=== PATIENT | female | born 1945 | race Caucasian/White ===

== ENCOUNTER 2017-02-03 05:03 | Day surgery (SDC) | payer OTHER, BC ==
[2017-01-28 17:05] VITALS: BMI 36.6
[2017-02-03] MEDS ORDERED: MIDAZOLAM HCL 2 MG/2 ML SINGLE DOSE VIAL ONE (09:50)
[2017-02-03] MEDS ORDERED: PROPOFOL 20 ML ONE (09:50)
[2017-02-03] MEDS ORDERED: DEXAMETHASONE SOD PHOSPHATE 4 MG/1 ML VIAL ONE (10:22)
[2017-02-03] MEDS ORDERED: METRONIDAZOLE 500 MG PREMIXED 100 ML IVPB ONE (10:26)
[2017-02-03] MEDS ORDERED: METRONIDAZOLE 500 MG PREMIXED 500 MG/100 ML MG IVPB ONE (10:27)
[2017-02-03] MEDS ORDERED: KETOROLAC TROMETHAMINE 30 MG/1 ML VIAL ONE (10:37)
[2017-02-03] MEDS ORDERED: ONDANSETRON 4 MG/2 ML VIAL IVPUSH PRN (11:07)
[2017-02-03] MEDS ORDERED: oxyCODONE HCL 5 MG TABLET PO PRN (11:07)
[2017-02-03] MEDS ORDERED: PROMETHAZINE HCL 25 MG/1 ML VIAL IVPUSH PRN (11:07)
[2017-02-03] MEDS ORDERED: IBUPROFEN 800 MG/8 ML IJ IVPB PRN (11:13)
[2017-02-03] MEDS ORDERED: IBUPROFEN 600 MG TABLET (FP) PO PRN (11:13)
[2017-02-03] MEDS ORDERED: LACTATED RINGERS SOLUTION 1,000 ML IV SCH (11:15)
[2017-02-03] MEDS ORDERED: ELECTROLYTE-148 SOLN 1,000 ML IV SCH (11:15)
--- NOTE | 2017-02-03 11:18 | HP ---
History & Physical Update - History History: No Change - Physical Physical: No Change - Assessment Assessment: No Change - Plan Plan: No Change (Consent signed and witnessed)
--- NOTE | 2017-02-03 11:19 | OP ---
Operative Note - Note: Operative Date: 02/03/17 Pre-Operative Diagnosis: 71yo P0 with thick Endometrium on Sonogram Operation: Hysteroscopy, Polypectomy, D&C Findings: 1. Endometrial polyp 2. Endocervical polyp 3. Submucosal fibroids x 2, 1x1cm, Grade 2 Post-Operative Diagnosis: Same as Pre-op (Endometrial polyp, Endocervical polyp , Submucosal fibroids x 2) Surgeon: Mita Whitaker Anesthesiologist/VISUAL MERCHANDISING DIRECTOR: Ulysses Alonso Anesthesia: General Specimens Removed: 1. Endometrial polyp. 2. Endocervical polyp. 3. Endometrial curettings Estimated Blood Loss (mls): 10 Drains & Tubes with Location: Fluid defficit - 100cc Drains, Volume Out (mls): 200 Fluid Volume Replaced (mls): 400 Operative Report Dictated: Yes
[2017-02-03 11:38] VITALS: TEMP 98.2
[2017-02-03 13:12] VITALS: BP 109/72; PULSE 88
[2017-02-03] MEDS ORDERED: ONDANSETRON 4 MG/2 ML VIAL IVPB PRN (17:00)
--- NOTE | 2017-02-04 13:16 | PATH ---
Surgical Pathology Report Patient Name: JORGE ALBERTO LAWRENCE [facility]. Rec. #: [id number] /Age/Gender: 1945 (Age: 71) / F Account: [id number] Location: [facility] Taken: 02/03/2017 Received: 02/03/2017 Reported: 02/04/2017 Physicians: Mita Whitaker M.D. Specimen(s) Received A: UTERINE POLYP B: CERVICAL POLYP C: ENDOMETRIAL CURETTINGS Clinical History Thickened endometrium Endometrial and endocervical polyp Final Diagnosis A. UTERINE POLYP, POLYPECTOMY: ENDOMETRIAL POLYP. B. CERVICAL POLYP, POLYPECTOMY: CONSISTENT WITH LOWER UTERINE SEGMENT POLYP. C. ENDOMETRIUM, CURETTAGE: FRAGMENTS OF ENDOMETRIAL POLYP. FRAGMENTS OF BENIGN ENDOCERVICAL TISSUE. FRAGMENTS OF BENIGN SQUAMOUS EPITHELIUM. Electronically Signed Oscar Bañuelos M.D. Gross Description A. Received in formalin labeled "uterine polyp" is a 1.8 x 0.6 x 0.3 cm pink-griffin, polypoid portion of soft tissue. The specimen is submitted in toto in one cassette. B. Received in formalin labeled "cervical polyp" are 4 pink-griffin soft tissue fragments ranging from 0.4-0.8 cm in greatest dimension. The specimens are submitted in toto in one cassette. C. Received in formalin labeled "endometrial curettage" is a 0.8 x 0.7 x 0.1 cm aggregate of griffin-pink soft tissue fragments. The formalin is filtered and the specimen is entirely submitted in one cassette. /02/03/201702/03/2017
--- NOTE | 2017-02-04 22:11 | OP ---
DATE OF OPERATION: 02/03/2017 PREOPERATIVE DIAGNOSIS: A 71-year-old para 0 with thick endometrium on a sonogram. POSTOPERATIVE DIAGNOSES: A 71-year-old para 0 with thick endometrium on a sonogram and endometrial polyp, endocervical polyp, submucosal fibroids x2. PROCEDURE: Hysteroscopy, polypectomy, dilation, and curettage. FINDINGS: 1. Endometrial polyp. 2. Endocervical polyp. 3. Submucosal fibroids x2, approximately 1 x 1 cm each, grade 2. SURGEON: Mita Whitaker MD ANESTHESIOLOGIST: Bernardo Alonso MD ANESTHESIA: General. SPECIMENS REMOVED: 1. Endometrial polyp. 2. Endocervical polyp. 3. Endometrial curettings. DESCRIPTION OF THE OPERATIVE PROCEDURE: After assuring informed consent, patient was brought to the operating room, where she was placed in dorsal lithotomy position. Perineum was prepped and draped in sterile fashion. After hysteroscope ACMI was set up and fully functional, bladder was emptied. The Silver speculum was introduced into the vagina and cervix articulated with single-toothed tenaculum and gradually dilated with [id number] Preciado dilators up to the size 17. ACMI hysteroscope, 5 mm, was introduced into the cervix and uterine contents were visualized and several endometrial polyps grouped together at the left cornua as well as endocervical polyp were noted. The bilateral ostia were visualized as well. The sharp 0 size serrated curette as well as polyp forceps were utilized to remove polyps separately, endocervical and endometrial, and sharp curettage subsequently was performed. All specimens were sent for pathology. The hysteroscope was reintroduced into the uterus and uterus was found to be empty, but fundal surface and low uterine segment were found to have 2 small 1 x 1 grade 2 submucosa fibroids. Excellent hemostasis was noted and uterus was found to be intact at the end of the procedure. All instruments were removed from the vagina. Excellent hemostasis was noted. FLUID DEFICIT: 100 mL at the end of the case. ESTIMATED BLOOD LOSS: 10 mL. URINE DRAINED: 200 mL. INTRAVENOUS FLUIDS: Patient received 400 mL of fluids. The patient tolerated the procedure well and was brought back to the recovery room in stable condition. Fany [id number]
== END 2017-02-03 14:00 | disposition home or self-care (01) ==
LOC: JASU-SURG 05:03
PROVIDERS: ATTEND Obstetrics & Gynecology
PROC: 0UDB8ZX Extraction of Endometrium, Via Natural or Artificial Opening Endoscopic, Diagnostic (ICD-10-PCS; 2017-02-03)
PROC: 0UB98ZX Excision of Uterus, Via Natural or Artificial Opening Endoscopic, Diagnostic (ICD-10-PCS; principal; 2017-02-03 09:00)
PROC: 0UBC8ZX Excision of Cervix, Via Natural or Artificial Opening Endoscopic, Diagnostic (ICD-10-PCS; 2017-02-03 09:00)
DX: N84.0 Polyp of corpus uteri (principal); D25.0 Submucous leiomyoma of uterus
CPT/HCPCS: 88305-TC; 94760

== ENCOUNTER → 2018-10-29 | Day surgery (SDC) | payer OTHER, BC ==
--- NOTE | 2018-11-01 20:43 | OP ---
DATE OF OPERATION: 10/29/2018 PREOPERATIVE DIAGNOSIS: Right axillary adenopathy, suspicious, right breast masses at 6 . PROCEDURE: Right ultrasound-guided core biopsies of axillary node and breast masses with clip placement. ANESTHESIA: Local. ATTENDING SURGEON: Dorothy Kasper MD ESTIMATED BLOOD LOSS: Minimal. COMPLICATIONS: None. DESCRIPTION OF PROCEDURE: The patient was made aware of the risks and benefits of the procedure and consented. She was placed in the supine position. The axilla was then approached. Under sterile conditions with 1% lidocaine for local anesthesia, a small ashley was made in the skin. Using a 13-gauge suction biopsy device under ultrasound guidance, multiple cores were obtained and submitted to Pathology. Likewise, under ultrasound guidance, a open coil clip was placed into the biopsy region well tolerated by patient. Steri-Strips and a sterile bandage was applied. Next, the left breast masses were approached. Next was the mass at 6 o'clock 1-2 cm from the nipple. Under sterile conditions with 1% lidocaine for local anesthesia, a small ashley was made in the skin. Using a 13-gauge suction biopsy device via an inferolateral approach under ultrasound guidance, multiple cores were obtained and submitted to Pathology. Likewise, under ultrasound guidance, a U-shaped clip was placed into the biopsy region. The mass at 6 o'clock 4 cm from the nipple was then approached using the same prior incision. Under ultrasound guidance, additional local anesthesia was administered. Using a separate 13-gauge suction biopsy device via inferolateral approach, multiple cores were obtained under ultrasound guidance and submitted to Pathology. Likewise, under ultrasound guidance, a bowtie clip was placed into the biopsy region well tolerated by patient. Steri-Strips and a sterile bandage were then applied and the patient having tolerated the procedure well. DOROTHY KASPER M.D. [id number]
--- NOTE | 2018-11-02 16:43 | PATH ---
Surgical Pathology Report Patient Name: JORGE ALBERTO LAWRENCE [facility]. Rec. #: [id number] /Age/Gender: 1945 (Age: 73) / F Account: [id number] Location: [facility] Taken: 10/29/2018 Received: 10/29/2018 Reported: 11/02/2018 Physicians: Fidencio Guevara M.D. Specimen(s) Received A: AXILLARY NODE, LEFT, CORE BIOPSY B: BREAST, LEFT, 6:00, 4 CM FN, CORE BIOPSY C: BREAST, LEFT, 6:00, 1-2 CM FN, CORE BIOPSY Clinical History Nonpalpable lesion Ultrasound findings: Highly suspicious/malignant Final Diagnosis A. Axillary node, left, core biopsy: Poorly differentiated carcinoma. See comment. B. Breast, left, 6:00, 4 cm Fn, core biopsy: Invasive ductal carcinoma, poorly differentiated. Tumor measures AT least 1.6 cm in this material. See comment. C. Breast, left, 6:00, 1-2 cm Fn, core biopsy: Invasive ductal carcinoma, poorly differentiated. Tumor measures AT least 1.3 cm in this material. Comment: Part A, Findings may represent a carcinoma extensively replacing a lymph node and morphologically similar to the tumor from the breast (part B and C). Part B, Immunohistochemical stain performed and interpreted at [facility] show the tumor is E-Cadherin positive; supportive of ductal phenotype. Results of Estrogen Receptor (ER) and Progesterone Receptor (CT) studies performed on block "B2" at [facility] are as follows: ER (clone [id number] mouse monoclonal antibody by [employer]): 0% nuclear staining (Negative). CT (clone16 mouse monoclonal antibody by [employer]): 0% nuclear staining (Negative). Formalin fixation time (approximately 74 hrs) exceeds current ASCO/CAP recommendations for ER, CT & Her2 testing (6-72 hrs). Negative results must be interpreted with caution as false negatives may occur. Cold ischemic time is within recommended guidelines. Results of Her2 (IHC) & Ki-67 studies are pending and will be reported separately. Electronically Signed Ariana Watson M.D. Addendum Reported: 11/03/2018 Addendum Diagnosis Results of Her2 (IHC) & Ki-67 studies performed on block "B2" at [place], [place] ([id number]) are as follows: Her2 IHC (EP3 from [employer], formerly known as [id number], using Fitzpatrick Polymer Refine detection kit): 3+ (Positive). Ki-67: ~ 55% (High proliferative index). Positive and negative controls (internal if applicable) show appropriate results. Arinaa Watson M.D. Gross Description A. Received in formalin labeled "left breast biopsy axilla #1," are 7 griffin-yellow, cylindrical portions of fibroadipose tissue ranging from 0.6-1.5 cm in length and averaging 0.1 cm diameter. The specimens are submitted in toto in 2 cassettes. B. Received in formalin labeled "left breast biopsy 6:00, 4cmn," are 8 griffin-yellow, cylindrical portions of fibroadipose tissue ranging from 0.5-1.7 cm in length and averaging 0.1 cm in diameter. The specimens are submitted in toto in 2 cassettes. C. Received in formalin labeled "left breast biopsy 6:00, 1-2cmfn," are 8 griffin-yellow, cylindrical portions of fibroadipose tissue ranging from 0.4-1.5 cm in length and averaging 0.1 cm diameter. The specimens are submitted in toto in 2 cassettes. Time to formalin fixation: Less than one minute Total formalin fixation time: Approximately 74 hours. 11/01/201811/01/2018
== END | disposition home or self-care (01) ==
LOC: FRADUS-SUR 14:42
PROVIDERS: ATTEND Surgery Surgical Oncology
PROC: 0HBU3ZX Excision of Left Breast, Percutaneous Approach, Diagnostic (ICD-10-PCS; principal; 2018-10-29)
PROC: 07B63ZX Excision of Left Axillary Lymphatic, Percutaneous Approach, Diagnostic (ICD-10-PCS; 2018-10-29)
PROC: BH47ZZZ Ultrasonography of Upper Extremity (ICD-10-PCS; 2018-10-29)
DX: C50.812 Malignant neoplasm of overlapping sites of left female breast (principal); C77.3 Secondary and unspecified malignant neoplasm of axilla and upper limb lymph nodes; Z17.1 Estrogen receptor negative status [ER-]; N63.20 Unspecified lump in the left breast, unspecified quadrant; R59.9 Enlarged lymph nodes, unspecified
CPT/HCPCS: 19083; 19084; 76942-TC; 77065-TC; 87899; 88305-TC; 88342-TC; A4648

== ENCOUNTER 2018-11-30 08:31 | Day surgery (SDC) | payer OTHER, BC ==
[2018-11-29 08:56] VITALS: BMI 33.8
[2018-11-30 09:04] LABS: EOS % 3.2 % (0-4.5); HEMATOCRIT 45.3 % (32.4-45.2); HEMOGLOBIN 15.2 GM/dL (10.7-15.3); LYMPH % 22.6 % (8-40); MCH 31.2 pg (25.7-33.7); MCHC 33.5 g/dl (32.0-36.0); MEAN PLT VOLUME 8.9 fl (7.5-11.1); MONO % 9.3 % (3.8-10.2); NEUT % 63.9 % (42.8-82.8); PLATELET COUNT 235 K/MM3 (134-434); RBC 4.87 M/mm3 (3.60-5.2); RDW 13.9 % (11.6-15.6); WHITE BLOOD COUNT 7.9 K/mm3 (4.0-10.0)
[2018-11-30 09:17] LABS: INR 1.06 (0.83-1.09); PROTHROMBIN TIME (PATIENT) 12.5 SEC (9.7-13.0)
[2018-11-30 13:13] VITALS: PULSE 88
[2018-11-30 14:28] VITALS: BP 120/78; TEMP 98
== END 2018-11-30 13:50 | disposition home or self-care (01) ==
LOC: JRADIR 08:31
PROVIDERS: ATTEND Internal Medicine Hematology & Oncology
PROC: 02HV33Z Insertion of Infusion Device into Superior Vena Cava, Percutaneous Approach (ICD-10-PCS; principal; 2018-11-30)
PROC: B548ZZA Ultrasonography of Superior Vena Cava, Guidance (ICD-10-PCS; 2018-11-30)
DX: C50.919 Malignant neoplasm of unspecified site of unspecified female breast (principal)
CPT/HCPCS: 36561; C1751; 36415; 77001-TC-FY; 85025; 85610; C1788

== ENCOUNTER 2018-12-01 07:27 | Day surgery (SDC) | payer OTHER, BC ==
[2018-12-01] MEDS ORDERED: SODIUM CHLORIDE 250 ML IV ONE (09:00)
[2018-12-01] MEDS ORDERED: FOSAPREPITANT DIMEGLUMINE 150 MG in SODIUM CHLORIDE 150 ML IVPB ONE (10:00)
[2018-12-01] MEDS ORDERED: ACETAMINOPHEN 325 MG TABLET (FP) PO ONE (10:00)
[2018-12-01] MEDS ORDERED: DEXAMETHASONE SODIUM PHOSPHATE 10 MG in SODIUM CHLORIDE 50 ML IVPB ONE (10:00)
[2018-12-01] MEDS ORDERED: diphenhydrAMINE HCL 25 MG CAPSULE (FP) PO ONE ×2 (10:00→11:00)
[2018-12-01] MEDS ORDERED: PALONOSETRON HCL 0.25 MG/5 ML VIAL IVPUSH ONE (10:00)
[2018-12-01 10:12] LABS: BASO % 0.2 % (0-2.0); EOS % 0.1 % (0-4.5); HEMATOCRIT 47.3 % (32.4-45.2); HEMOGLOBIN 15.7 GM/dL (10.7-15.3); LYMPH % 8.8 % (8-40); MCH 31.1 pg (25.7-33.7); MCHC 33.3 g/dl (32.0-36.0); MEAN CELL VOLUME 93.5 fl (80-96); MEAN PLT VOLUME 9.2 fl (7.5-11.1); NEUT % 88.9 % (42.8-82.8); PLATELET COUNT 263 K/MM3 (134-434); RBC 5.06 M/mm3 (3.60-5.2); RDW 13.8 % (11.6-15.6); WHITE BLOOD COUNT 12.2 K/mm3 (4.0-10.0)
[2018-12-01] MEDS ORDERED: PERTUZUMAB 840 MG in SODIUM CHLORIDE 250 ML IVPB ONE (10:30)
[2018-12-01 10:49] LABS: ALBUMIN 4.2 g/dl (3.4-5.0); ALBUMIN 4.3 g/dl (3.4-5.0); ALK PHOS 73 U/L (45-117); BILIRUBIN,DIRECT 0.2 mg/dL (0.0-0.2); BILIRUBIN,TOTAL 0.4 mg/dL (0.2-1); BLOOD UREA NITROGEN 17 mg/dL (7-18); CALCIUM 10.1 mg/dL (8.5-10.1); CHLORIDE 102 mmol/L (98-107); CO2 21 mmol/L (21-32); CREATININE 0.9 mg/dL (0.55-1.3); GLUCOSE,RANDOM 275 mg/dL (74-106); MAGNESIUM 2.1 mg/dL (1.8-2.4); POTASSIUM 4.4 mmol/L (3.5-5.1); SGOT/AST 11 U/L (15-37); SGPT/ALT 30 U/L (13-61); SODIUM 136 mmol/L (136-145); TOT PROT 7.9 g/dl (6.4-8.2)
[2018-12-01 11:00] LABS: ANION GAP 12 MMOL/L (8-16)
[2018-12-01] MEDS ORDERED: SODIUM CHLORIDE 250 ML IV SCH (11:00)
[2018-12-01] MEDS ORDERED: TRASTUZUMAB IVPB ONE (11:30)
[2018-12-01] MEDS ORDERED: SODIUM CHLORIDE IVPB ONE ×2 (11:30→14:00)
[2018-12-01] MEDS ORDERED: DOCETAXEL 140 MG in SODIUM CHLORIDE 250 ML IV ONE (13:00)
[2018-12-01] MEDS ORDERED: CARBOPLATIN IVPB ONE (14:00)
[2018-12-01] MEDS ORDERED: INSULIN (NOVOLOG) ASPART 100 UNITS/ML 10ML VIAL SQ ONE (17:45)
[2018-12-01] MEDS ORDERED: PORTA CATH FLUSH 10 ML IVPUSH ONE (18:49)
[2018-12-01 18:55] VITALS: BP 146/83; PULSE 108; TEMP 98.3
== END 2018-12-01 18:00 | disposition home or self-care (01) ==
LOC: JONCCHEMO 07:27 → J7W 11:22 → JONCCHEMO 18:00
PROVIDERS: ATTEND Internal Medicine Hematology & Oncology
DX: Z51.11 Encounter for antineoplastic chemotherapy (principal); C50.812 Malignant neoplasm of overlapping sites of left female breast; C77.3 Secondary and unspecified malignant neoplasm of axilla and upper limb lymph nodes; Z17.1 Estrogen receptor negative status [ER-]
CPT/HCPCS: 36415; 80053; 80076; 82962; 83735; 85025; 96361; 96375; 96413; 96415; 96417; J2469; J7030; J9171; J9306; J9355

== ENCOUNTER 2018-12-03 07:19 | Day surgery (SDC) | payer OTHER, BC ==
[2018-12-03] MEDS ORDERED: PEGFILGRASTIM 6 MG/0.6 ML DISP.SYRIN SQ ONE (10:00)
[2018-12-03] MEDS ORDERED: SODIUM CHLORIDE 1,000 ML IV SCH ×2 (11:15→12:00)
[2018-12-03] MEDS ORDERED: PORTA CATH FLUSH 10 ML IVPUSH ONE (14:49)
[2018-12-03 16:23] VITALS: BP 109/73; PULSE 96
[2018-12-03 16:24] VITALS: TEMP 98.2
== END 2018-12-03 16:25 | disposition home or self-care (01) ==
LOC: JONCCHEMO 07:19 → J7W 11:01 → JONCCHEMO 16:25
PROVIDERS: ATTEND Internal Medicine Hematology & Oncology
PROC: 3E013GC Introduction of Other Therapeutic Substance into Subcutaneous Tissue, Percutaneous Approach (ICD-10-PCS; principal; 2018-12-03)
PROC: 3E043GC Introduction of Other Therapeutic Substance into Central Vein, Percutaneous Approach (ICD-10-PCS; 2018-12-03)
DX: C50.812 Malignant neoplasm of overlapping sites of left female breast (principal); C77.3 Secondary and unspecified malignant neoplasm of axilla and upper limb lymph nodes; Z17.1 Estrogen receptor negative status [ER-]
CPT/HCPCS: 96361; 96365; 96366; 96372; J2505; J7030

== ENCOUNTER 2018-12-06 10:22 | Day surgery (SDC) | payer OTHER, BC ==
[2018-12-06] MEDS ORDERED: SODIUM CHLORIDE 800 ML IV SCH (13:00)
[2018-12-06] MEDS ORDERED: LOPERAMIDE HCL 2 MG CAPSULE PO ONE (13:00)
[2018-12-06 13:13] LABS: HEMATOCRIT 40.7 % (32.4-45.2); HEMOGLOBIN 13.6 GM/dL (10.7-15.3); MCH 31.2 pg (25.7-33.7); MCHC 33.4 g/dl (32.0-36.0); MEAN CELL VOLUME 93.4 fl (80-96); MEAN PLT VOLUME 9.8 fl (7.5-11.1); RBC 4.36 M/mm3 (3.60-5.2); RDW 13.5 % (11.6-15.6); WHITE BLOOD COUNT 3.6 K/mm3 (4.0-10.0)
[2018-12-06 13:30] LABS: ALBUMIN 3.7 g/dl (3.4-5.0); ALK PHOS 70 U/L (45-117); ANION GAP 11 MMOL/L (8-16); BILIRUBIN,TOTAL 0.7 mg/dL (0.2-1); BLOOD UREA NITROGEN 11 mg/dL (7-18); CALCIUM 9.1 mg/dL (8.5-10.1); CHLORIDE 98 mmol/L (98-107); CO2 24 mmol/L (21-32); CREATININE 0.6 mg/dL (0.55-1.3); GLUCOSE,RANDOM 179 mg/dL (74-106); MAGNESIUM 1.7 mg/dL (1.8-2.4); POTASSIUM 3.7 mmol/L (3.5-5.1); SGOT/AST 17 U/L (15-37); SGPT/ALT 32 U/L (13-61); SODIUM 133 mmol/L (136-145)
[2018-12-06] MEDS ORDERED: MAGNESIUM SULF 50% (8.12 MEQ/2 ML-1 GM VIAL) IVPB ONE (14:15)
[2018-12-06 14:41] LABS: PLATELET COUNT 167 K/MM3 (134-434)
[2018-12-06 16:46] VITALS: BP 121/62; TEMP 98.6
[2018-12-06] MEDS ORDERED: PORTA CATH FLUSH 10 ML IVPUSH ONE (16:46)
[2018-12-06 17:01] VITALS: PULSE 105
[2018-12-06] MEDS ORDERED: BACITRACIN 15 GM TUBE TOPICAL OINTMENT TP SCH (22:00)
== END 2018-12-06 16:49 | disposition home or self-care (01) ==
LOC: JONCNONCHE 10:22 → J7W 12:32 → JONCNONCHE 16:49
PROVIDERS: ATTEND Internal Medicine Hematology & Oncology
PROC: 3E043GC Introduction of Other Therapeutic Substance into Central Vein, Percutaneous Approach (ICD-10-PCS; principal; 2018-12-06)
DX: C50.812 Malignant neoplasm of overlapping sites of left female breast (principal); C77.3 Secondary and unspecified malignant neoplasm of axilla and upper limb lymph nodes; E86.0 Dehydration
CPT/HCPCS: 36415; 80053; 83735; 85027; 96360; 96361; 96365; 96366; J7030

== ENCOUNTER 2018-12-08 07:04 | Day surgery (SDC) | payer OTHER, BC ==
[2018-12-08 11:06] VITALS: TEMP 97.9
[2018-12-08 11:46] LABS: BASO % 1.3 % (0-2.0); EOS % 1.3 % (0-4.5); HEMATOCRIT 42.6 % (32.4-45.2); HEMOGLOBIN 14.4 GM/dL (10.7-15.3); LYMPH % 24.8 % (8-40); MCH 31.3 pg (25.7-33.7); MCHC 33.8 g/dl (32.0-36.0); MEAN CELL VOLUME 92.5 fl (80-96); MONO % 6.6 % (3.8-10.2); PLATELET COUNT 241 K/MM3 (134-434); RBC 4.61 M/mm3 (3.60-5.2); RDW 13.5 % (11.6-15.6); WHITE BLOOD COUNT 6.6 K/mm3 (4.0-10.0)
[2018-12-08 12:13] LABS: ALBUMIN 3.8 g/dl (3.4-5.0); BILIRUBIN,DIRECT 0.2 mg/dL (0.0-0.2); BILIRUBIN,TOTAL 0.5 mg/dL (0.2-1); MAGNESIUM 1.7 mg/dL (1.8-2.4); TOT PROT 7.4 g/dl (6.4-8.2)
[2018-12-08 12:15] LABS: ALBUMIN 3.8 g/dl (3.4-5.0); ALK PHOS 70 U/L (45-117); ANION GAP 10 MMOL/L (8-16); BILIRUBIN,TOTAL 0.5 mg/dL (0.2-1); BLOOD UREA NITROGEN 10 mg/dL (7-18); CALCIUM 9.2 mg/dL (8.5-10.1); CHLORIDE 98 mmol/L (98-107); CO2 23 mmol/L (21-32); CREATININE 0.6 mg/dL (0.55-1.3); GLUCOSE,RANDOM 156 mg/dL (74-106); POTASSIUM 3.9 mmol/L (3.5-5.1); SGOT/AST 28 U/L (15-37); SGPT/ALT 26 U/L (13-61); SODIUM 132 mmol/L (136-145); TOT PROT 7.4 g/dl (6.4-8.2)
[2018-12-08] MEDS ORDERED: SODIUM CHLORIDE 750 ML IV SCH (13:45)
[2018-12-08] MEDS ORDERED: MAGNESIUM SULFATE IN WATER 2 GM/50 ML IVPB IVPB ONE (14:00)
[2018-12-08] MEDS ORDERED: MAGNESIUM SULF 50% (8.12 MEQ/2 ML-1 GM VIAL) IVPB ONE (14:30)
[2018-12-08 15:04] LABS: ANISOCYTOSIS 2+; MACROCYTOSIS 0; PLATELET ESTIMATE NORMAL
[2018-12-08] MEDS ORDERED: PORTA CATH FLUSH 10 ML IVPUSH ONE (16:46)
[2018-12-08 19:14] VITALS: BP 142/79; PULSE 108
== END 2018-12-08 19:15 | disposition home or self-care (01) ==
LOC: JONCNONCHE 07:04 → J7W 13:14 → JONCNONCHE 19:15
PROVIDERS: ATTEND Internal Medicine Hematology & Oncology
PROC: 3E043GC Introduction of Other Therapeutic Substance into Central Vein, Percutaneous Approach (ICD-10-PCS; principal; 2018-12-08)
PROC: 3E043GC Introduction of Other Therapeutic Substance into Central Vein, Percutaneous Approach (ICD-10-PCS; 2018-12-08)
DX: C50.812 Malignant neoplasm of overlapping sites of left female breast (principal); C77.3 Secondary and unspecified malignant neoplasm of axilla and upper limb lymph nodes; Z76.89 Persons encountering health services in other specified circumstances
CPT/HCPCS: 36415; 80053; 80076; 83735; 85025; 87177; 87209; 87324; 87449; 96361; 96365; 96417; J7030

== ENCOUNTER 2018-12-10 07:14 | Day surgery (SDC) | payer OTHER, BC ==
[2018-12-10] MEDS ORDERED: SODIUM CHLORIDE 750 ML IV SCH (13:30)
[2018-12-10] MEDS ORDERED: PORTA CATH FLUSH 10 ML IVPUSH ONE (16:00)
[2018-12-10 16:02] VITALS: TEMP 97.9
[2018-12-10] MEDS ORDERED: ALBUTEROL SO4 8 GM HFA INHALER IH PRN (16:53)
[2018-12-10 17:18] VITALS: BP 129/68; PULSE 97
== END 2018-12-10 17:10 | disposition home or self-care (01) ==
LOC: JONCNONCHE 07:14 → J7W 13:04 → JONCNONCHE 17:10
PROVIDERS: ATTEND Internal Medicine Hematology & Oncology
PROC: 3E0437Z Introduction of Electrolytic and Water Balance Substance into Central Vein, Percutaneous Approach (ICD-10-PCS; principal; 2018-12-10)
DX: C50.812 Malignant neoplasm of overlapping sites of left female breast (principal); Z76.89 Persons encountering health services in other specified circumstances
CPT/HCPCS: 96360; 96361; J7030

== ENCOUNTER 2018-12-13 12:36 | Day surgery (SDC) | payer OTHER, BC ==
[~2018-12-13 12:36] MED LIST: SODIUM CHLORIDE 500 ML IV ONE
[2018-12-13] MEDS ORDERED: PORTA CATH FLUSH 10 ML IVPUSH ONE (15:37)
[2018-12-13 16:45] VITALS: BP 153/86; PULSE 87
[2018-12-13 16:46] VITALS: TEMP 97.9
== END 2018-12-13 16:49 | disposition home or self-care (01) ==
LOC: JONCCHEMO 12:36 → J7W 13:01 → JONCCHEMO 16:49
PROVIDERS: ATTEND Internal Medicine Hematology & Oncology
PROC: 3E0437Z Introduction of Electrolytic and Water Balance Substance into Central Vein, Percutaneous Approach (ICD-10-PCS; principal; 2018-12-13)
DX: C50.812 Malignant neoplasm of overlapping sites of left female breast (principal); Z76.89 Persons encountering health services in other specified circumstances
CPT/HCPCS: 96360; 96361

== ENCOUNTER 2018-12-15 14:02 | Day surgery (SDC) | payer OTHER, BC ==
[2018-12-15 11:58] LABS: HEMATOCRIT 40.4 % (32.4-45.2); HEMOGLOBIN 13.5 GM/dL (10.7-15.3); MCH 30.8 pg (25.7-33.7); MCHC 33.4 g/dl (32.0-36.0); MEAN CELL VOLUME 92.1 fl (80-96); MEAN PLT VOLUME 8.8 fl (7.5-11.1); PLATELET COUNT 130 K/MM3 (134-434); RBC 4.38 M/mm3 (3.60-5.2); WHITE BLOOD COUNT 17.5 K/mm3 (4.0-10.0)
[2018-12-15 12:32] LABS: ALBUMIN 3.7 g/dl (3.4-5.0); ALK PHOS 101 U/L (45-117); ANION GAP 9 MMOL/L (8-16); BILIRUBIN,TOTAL 0.2 mg/dL (0.2-1); BLOOD UREA NITROGEN 8 mg/dL (7-18); CALCIUM 9.3 mg/dL (8.5-10.1); CHLORIDE 109 mmol/L (98-107); CO2 23 mmol/L (21-32); CREATININE 0.6 mg/dL (0.55-1.3); GLUCOSE,RANDOM 164 mg/dL (74-106); MAGNESIUM 1.4 mg/dL (1.8-2.4); POTASSIUM 3.8 mmol/L (3.5-5.1); SGOT/AST 15 U/L (15-37); SGPT/ALT 21 U/L (13-61); SODIUM 142 mmol/L (136-145); TOT PROT 6.8 g/dl (6.4-8.2)
[~2018-12-15 14:02] MED LIST changes: +MAGNESIUM SULF 50% (8.12 MEQ/2 ML-1 GM VIAL) IVPB ONE; -SODIUM CHLORIDE 500 ML IV ONE
[2018-12-15 15:30] VITALS: TEMP 97.9
[2018-12-15 16:54] VITALS: BP 132/74; PULSE 68
== END 2018-12-15 16:55 | disposition home or self-care (01) ==
LOC: JONCNONCHE 14:02 → EDSTATUS 14:03 → J7W 14:57 → JONCNONCHE 16:55
PROVIDERS: ATTEND Internal Medicine Hematology & Oncology
PROC: 3E033GC Introduction of Other Therapeutic Substance into Peripheral Vein, Percutaneous Approach (ICD-10-PCS; principal; 2018-12-15)
PROC: 3E0337Z Introduction of Electrolytic and Water Balance Substance into Peripheral Vein, Percutaneous Approach (ICD-10-PCS; 2018-12-15)
DX: C50.812 Malignant neoplasm of overlapping sites of left female breast (principal)
CPT/HCPCS: 36415; 80053; 83735; 85027; 96361; 96365; 96366; 96374

== ENCOUNTER 2018-12-22 07:06 | Day surgery (SDC) | payer OTHER, BC ==
[2018-12-22] MEDS ORDERED: SODIUM CHLORIDE 250 ML IV ONE (08:00)
[2018-12-22] MEDS ORDERED: FOSAPREPITANT DIMEGLUMINE 150 MG in SODIUM CHLORIDE 145 ML IVPB ONE (08:30)
[2018-12-22] MEDS ORDERED: diphenhydrAMINE HCL 25 MG CAPSULE (FP) PO ONE (08:30)
[2018-12-22] MEDS ORDERED: PALONOSETRON HCL 0.25 MG/5 ML VIAL IVPUSH ONE (08:30)
[2018-12-22] MEDS ORDERED: ACETAMINOPHEN 325 MG TABLET (FP) PO ONE (08:30)
[2018-12-22] MEDS ORDERED: DEXAMETHASONE SODIUM PHOSPHATE 10 MG in SODIUM CHLORIDE 50 ML IVPB ONE (08:30)
[2018-12-22] MEDS ORDERED: PERTUZUMAB 420 MG in SODIUM CHLORIDE 250 ML IVPB ONE (09:00)
[2018-12-22] MEDS ORDERED: TRASTUZUMAB IVPB ONE (09:30)
[2018-12-22] MEDS ORDERED: SODIUM CHLORIDE IVPB ONE (09:30)
[2018-12-22 09:35] LABS: BASO % 0.4 % (0-2.0); HEMATOCRIT 39.3 % (32.4-45.2); HEMOGLOBIN 13.4 GM/dL (10.7-15.3); LYMPH % 11.2 % (8-40); MCH 31.5 pg (25.7-33.7); MEAN CELL VOLUME 92.5 fl (80-96); MEAN PLT VOLUME 8.3 fl (7.5-11.1); MONO % 3.3 % (3.8-10.2); NEUT % 85.1 % (42.8-82.8); PLATELET COUNT 406 K/MM3 (134-434); RBC 4.25 M/mm3 (3.60-5.2); RDW 14.1 % (11.6-15.6); WHITE BLOOD COUNT 9.4 K/mm3 (4.0-10.0)
[2018-12-22] MEDS ORDERED: SODIUM CHLORIDE IV ONE (10:00)
[2018-12-22] MEDS ORDERED: DOCETAXEL IV ONE (10:00)
[2018-12-22 10:09] LABS: BLOOD UREA NITROGEN 19 mg/dL (7-18); CHLORIDE 105 mmol/L (98-107); CO2 22 mmol/L (21-32); CREATININE 0.7 mg/dL (0.55-1.3); GLUCOSE,RANDOM 225 mg/dL (74-106); POTASSIUM 4.4 mmol/L (3.5-5.1); SODIUM 138 mmol/L (136-145)
[2018-12-22 10:10] LABS: ALK PHOS 69 U/L (45-117); ANION GAP 11 MMOL/L (8-16); BILIRUBIN,DIRECT 0.2 mg/dL (0.0-0.2); BILIRUBIN,TOTAL 0.3 mg/dL (0.2-1); MAGNESIUM 1.5 mg/dL (1.8-2.4); SGOT/AST 9 U/L (15-37); SGPT/ALT 26 U/L (13-61); TOT PROT 7.4 g/dl (6.4-8.2)
[2018-12-22] MEDS ORDERED: MAGNESIUM SULF 50% (8.12 MEQ/2 ML-1 GM VIAL) IVPB ONE (10:21)
[2018-12-22 13:53] VITALS: TEMP 97.8
[2018-12-22 16:13] VITALS: BP 132/81; PULSE 87
[2018-12-22] MEDS ORDERED: PORTA CATH FLUSH 10 ML IVPUSH ONE (16:13)
== END 2018-12-22 16:20 | disposition home or self-care (01) ==
LOC: JONCCHEMO 07:06 → J7W 10:40 → JONCCHEMO 16:20
PROVIDERS: ATTEND Internal Medicine Hematology & Oncology
DX: Z51.11 Encounter for antineoplastic chemotherapy (principal); C50.812 Malignant neoplasm of overlapping sites of left female breast
CPT/HCPCS: 36415; 80048; 80076; 82962; 83735; 85025; 96367; 96375; 96413; 96417; J2469; J9171; J9306; J9355

== ENCOUNTER 2018-12-24 07:33 | Day surgery (SDC) | payer OTHER, BC ==
[2018-12-24] MEDS ORDERED: PEGFILGRASTIM 6 MG/0.6 ML DISP.SYRIN SQ ONE (09:00)
[2018-12-24 12:30] VITALS: BP 121/70; PULSE 89; TEMP 97.9
== END 2018-12-24 10:30 | disposition home or self-care (01) ==
LOC: JONCCHEMO 07:33 → J7W 10:09 → JONCCHEMO 10:30
PROVIDERS: ATTEND Internal Medicine Hematology & Oncology
PROC: 3E013GC Introduction of Other Therapeutic Substance into Subcutaneous Tissue, Percutaneous Approach (ICD-10-PCS; principal; 2018-12-24)
DX: C50.812 Malignant neoplasm of overlapping sites of left female breast (principal)
CPT/HCPCS: 96372; J2505

== ENCOUNTER 2018-12-29 11:02 | Inpatient (IN) | payer OTHER, BC ==
[2018-12-29 11:25] LABS: HEMATOCRIT 42.1 % (32.4-45.2); HEMOGLOBIN 14.3 GM/dL (10.7-15.3); MCH 30.9 pg (25.7-33.7); MEAN PLT VOLUME 8.9 fl (7.5-11.1); PLATELET COUNT 220 K/MM3 (134-434); RBC 4.63 M/mm3 (3.60-5.2); RDW 14.2 % (11.6-15.6); WHITE BLOOD COUNT 11.5 K/mm3 (4.0-10.0)
[2018-12-29 12:11] LABS: ALBUMIN 3.8 g/dl (3.4-5.0); ALK PHOS 142 U/L (45-117); ANION GAP 12 MMOL/L (8-16); BILIRUBIN,TOTAL 0.5 mg/dL (0.2-1); BLOOD UREA NITROGEN 9 mg/dL (7-18); CALCIUM 9.2 mg/dL (8.5-10.1); CHLORIDE 104 mmol/L (98-107); CO2 21 mmol/L (21-32); CREATININE 0.7 mg/dL (0.55-1.3); GLUCOSE,RANDOM 156 mg/dL (74-106); MAGNESIUM 1.5 mg/dL (1.8-2.4); N-TERMINAL BNP 18.4 pg/ml (5-125); POTASSIUM 3.2 mmol/L (3.5-5.1); SGOT/AST 12 U/L (15-37); SGPT/ALT 29 U/L (13-61); SODIUM 137 mmol/L (136-145)
[2018-12-29] MEDS ORDERED: POTASSIUM CHLORIDE TABS 20 MEQ TABLET.ER (FP) PO ONE (14:11)
[2018-12-29] MEDS ORDERED: MAGNESIUM SULF 50% (8.12 MEQ/2 ML-1 GM VIAL) IVPB ONE (14:12)
--- NOTE | 2018-12-29 16:01 | PN ---
Progress Note (short form) - Note Progress Note: Paatient seen and examined Sen earlier by Dr. Conner. Complained of difficulty breathing- now improved BP--113/76 P-102 RR-20 T-98.2 HEENT: HERMAN, EOM Intact Oropharynx: No thrush, No mucositis Cor: RSR, No murmurs, No gallops Lungs: Clear to P&A Abd: Soft, Normal bowel sounds, No organomegaly Ext:No significant edema Skin: No rashes, Integument intact CBC, BMP 12/29/18 11:15 12/29/18 11:15 Impression: Breast ca Chemotherapy Dyspnea-- improved Hypokalemia-repleted To monitor.
[2018-12-29] MEDS ORDERED: PORTA CATH FLUSH 10 ML IVPUSH ONE (16:55)
--- NOTE | 2018-12-29 19:51 | CON.CARD ---
Consult - History Source History Provided By: Medical Record - Past Medical History Cardio/Vascular: Yes: HTN, Hyperlipdemia Endocrine: Yes: Diabetes Mellitus - Alcohol/Substance Use Hx Alcohol Use: No - Smoking History Smoking history: Former smoker Have you smoked in the past 12 months: No If you are a former smoker, when did you quit?: 7 years Home Medications - Allergies Allergies/Adverse Reactions: Allergies Allergy/AdvReac Type Severity Reaction Status Date / Time Penicillins Allergy Intermediate Rash Verified 11/30/18 09:58 - Home Medications Home Medications: Ambulatory Orders Ascorbate Calcium [Vitamin C] 500 mg PO DAILY 01/28/17 Glipizide 5 mg PO TID 01/28/17 Levomefolate/B6/B12/Algal Oil [Metanx Capsule] 1 each PO DAILY 01/28/17 Multivit-Min/FA/Lycopen/Lutein [Centrum Silver Tablet] 1 tab PO DAILY 01/28/17 Naproxen Sodium [Aleve] 440 mg PO DAILY 01/28/17 Omeprazole 40 mg PO DAILY 01/28/17 Ramipril 2.5 mg PO HS 01/28/17 Saxagliptin HCl/Metformin HCl [Kombiglyze Xr 2.5-1,000 mg Tab] 1 tab PO BID Simvastatin 20 mg PO HS 01/28/17 Ibuprofen [Motrin -] 600 mg PO QID #28 tablet 02/03/17 Canagliflozin [Invokana] 300 mg PO DAILY 11/29/18 Gabapentin 600 mg PO HS 11/29/18 Tiotropium [place] [Spiriva] 1 inh PO DAILY 11/29/18 Albuterol Sulfate Inhaler - [Ventolin HFA Inhaler -] 1 puff PO PRN PRN 12/29/18 Loperamide HCl [Imodium -] 2 mg PO PRN PRN 12/29/18 Ondansetron HCl [Zofran] 8 mg PO PRN PRN 12/29/18 SYMBICORT 160/4.5mcg - 1 inh PO BID 12/29/18 Review of Systems - Review of Systems Constitutional: reports: No Symptoms Eyes: reports: No Symptoms HENT: reports: No Symptoms Neck: reports: No Symptoms Cardiovascular: reports: Shortness of Breath Gastrointestinal: reports: No Symptoms Genitourinary: reports: No Symptoms Breasts: reports: No Symptoms Reported Musculoskeletal: reports: No Symptoms Integumentary: reports: No Symptoms Neurological: reports: No Symptoms Endocrine: reports: No Symptoms Hematology/Lymphatic: reports: No Symptoms Psychiatric: reports: No Symptoms Vital Signs: Vital Signs Temperature 98.1 F 12/29/18 18:16 Pulse Rate 93 H 12/29/18 18:16 Respiratory Rate 20 12/29/18 18:16 Blood Pressure 111/63 12/29/18 18:16 O2 Sat by Pulse Oximetry (%) Constitutional: Yes: Well Nourished, No Distress, Calm Eyes: Yes: WNL, Conjunctiva Clear, EOM Intact HENT: Yes: WNL, Atraumatic, Normocephalic Neck: Yes: WNL, Supple, Trachea Midline Respiratory: Yes: WNL, Regular, CTA Bilaterally Gastrointestinal: Yes: WNL, Normal Bowel Sounds Renal/: Yes: WNL Cardiovascular: Yes: WNL, Regular Rate and Rhythm Musculoskeletal: Yes: WNL Extremities: Yes: WNL Integumentary: Yes: WNL Neurological: Yes: WNL, Alert, Oriented ...Motor Strength: WNL Psychiatric: Yes: WNL, Alert, Oriented - Other Data Labs, Other Data: CBC, BMP 12/29/18 11:15 12/29/18 11:15 Troponin, BNP 12/29/18 11:15 B-Natriuretic Peptide 18.4 Troponin, BNP 12/29/18 11:15 B-Natriuretic Peptide 18.4 Assessment/Plan Breast Ca s/p chemo htn hlp DM ECHO nl EF BNP nl - SOB unlikely cardiac will f/u EKG/CXR Pending
[2018-12-29] MEDS ORDERED: LOPERAMIDE HCL 2 MG CAPSULE PO PRN (20:20)
[2018-12-29] MEDS ORDERED: ONDANSETRON *ODT* 4 MG TABLET SL PRN (20:22)
[2018-12-29] MEDS ORDERED: SAXAGLIPTIN PO SCH (22:00)
[2018-12-29] MEDS ORDERED: METFORMIN PO SCH (22:00)
[2018-12-29] MEDS: SODIUM CHLORIDE 1,000 ML IV SCH (22:04)
[2018-12-29] MEDS: GABAPENTIN 300 MG CAPSULE (FP) PO SCH (22:04)
[2018-12-29] MEDS: BUDESONIDE/FORMETEROL FUMARATE 160/4.5 mcg INHALER IH SCH (22:05)
[2018-12-29] MEDS: RAMIPRIL 2.5 MG CAPSULE (FP) PO SCH (22:05)
[2018-12-30] MEDS: glipiZIDE 5 MG TABLET (FP) PO SCH ×3 (07:13→16:53)
[2018-12-30] MEDS: SODIUM CHLORIDE 1,000 ML IV SCH (07:58)
--- NOTE | 2018-12-30 08:39 | CONSULT ---
Consult Consult Specialty:: Endocrinology Referred by:: Dr Ramirez Reason for Consultation:: Management of DM - History of Present Illness Chief Complaint: Diarrhoea, SOB History of Present Illness: This is a 73 yrs old female with h/o T2DM, Thyroid nodule, HLD Rt breast Ca on Chemo who was admitted with c/o persistent diarrhea for 5 week and VILLEDA. C/o of weakness and poor apetite. W/U for VILLEDA done as outpatient done which included pulmonary function testing and stress test as per pt. Referred for management of DM - History Source History Provided By: Patient, Medical Record - Past Medical History Cardio/Vascular: Yes: HTN, Hyperlipdemia Endocrine: Yes: Diabetes Mellitus, Other (Thyroid nodule) - Alcohol/Substance Use Hx Alcohol Use: No - Smoking History Smoking history: Former smoker Have you smoked in the past 12 months: No If you are a former smoker, when did you quit?: 7 years Home Medications - Allergies Allergies/Adverse Reactions: Allergies Allergy/AdvReac Type Severity Reaction Status Date / Time Penicillins Allergy Intermediate Rash Verified 11/30/18 09:58 - Home Medications Home Medications: Ambulatory Orders Ascorbate Calcium [Vitamin C] 500 mg PO DAILY 01/28/17 Glipizide 5 mg PO TID 01/28/17 Levomefolate/B6/B12/Algal Oil [Metanx Capsule] 1 each PO DAILY 01/28/17 Multivit-Min/FA/Lycopen/Lutein [Centrum Silver Tablet] 1 tab PO DAILY 01/28/17 Naproxen Sodium [Aleve] 440 mg PO DAILY 01/28/17 Omeprazole 40 mg PO DAILY 01/28/17 Ramipril 2.5 mg PO HS 01/28/17 Saxagliptin HCl/Metformin HCl [Kombiglyze Xr 2.5-1,000 mg Tab] 1 tab PO BID Simvastatin 20 mg PO HS 01/28/17 Ibuprofen [Motrin -] 600 mg PO QID #28 tablet 02/03/17 Canagliflozin [Invokana] 300 mg PO DAILY 11/29/18 Gabapentin 600 mg PO HS 11/29/18 Tiotropium [place] [Spiriva] 1 inh PO DAILY 11/29/18 Albuterol Sulfate Inhaler - [Ventolin HFA Inhaler -] 1 puff PO PRN PRN 12/29/18 Loperamide HCl [Imodium -] 2 mg PO PRN PRN 12/29/18 Ondansetron HCl [Zofran] 8 mg PO PRN PRN 12/29/18 SYMBICORT 160/4.5mcg - 1 inh PO BID 12/29/18 Family Disease History - Family Disease History Other Family History: Doesn't Know Review of Systems - Review of Systems Constitutional: reports: Loss of Appetite, Weakness Eyes: reports: No Symptoms HENT: reports: No Symptoms Neck: reports: No Symptoms Cardiovascular: reports: Shortness of Breath Respiratory: reports: SOB on Exertion Gastrointestinal: reports: Diarrhea Genitourinary: reports: No Symptoms Musculoskeletal: reports: No Symptoms Integumentary: reports: No Symptoms Neurological: reports: No Symptoms Endocrine: reports: No Symptoms Physical Exam Vital Signs: Vital Signs Temperature 98.9 F 12/30/18 05:24 Pulse Rate 84 12/30/18 05:24 Respiratory Rate 20 12/30/18 05:24 Blood Pressure 101/56 L 12/30/18 05:24 O2 Sat by Pulse Oximetry (%) Constitutional: Yes: No Distress, Calm Eyes: Yes: Conjunctiva Clear, EOM Intact HENT: Yes: Atraumatic, Normocephalic Neck: Yes: Supple, Trachea Midline Cardiovascular: Yes: Regular Rate and Rhythm Respiratory: Yes: Regular, CTA Bilaterally Gastrointestinal: Yes: Normal Bowel Sounds, Soft Musculoskeletal: Yes: WNL Extremities: Yes: WNL Edema: No Neurological: Yes: Alert, Oriented Labs: CBC, BMP 12/29/18 11:15 12/29/18 11:15 Imaging - Results X-ray: Report Reviewed Problem List - Problems (1) Breast cancer Code(s): C50.919 - MALIGNANT NEOPLASM OF UNSP SITE OF UNSPECIFIED FEMALE BREAST (2) Diabetes Code(s): E11.9 - TYPE 2 DIABETES MELLITUS WITHOUT COMPLICATIONS (3) Dyspnea on exertion Code(s): R06.09 - OTHER FORMS OF DYSPNEA Assessment/Plan AP: Diarrhoea VILLEDA Breast Ca T2DM Thyroid nodules s/P FNA HLD BGM TID premeals Continue Glipizide 5mg TID with meals Hold Kombiglyze for now b/o Metformin component Saxagliptin not available in hospital formulary Will add Januvia if necessary Hold Invokana for now Will F/U
[2018-12-30] MEDS: PANTOPRAZOLE 40 MG TABLET (FP) PO SCH (09:01)
[2018-12-30] MEDS: RAMIPRIL 2.5 MG CAPSULE (FP) PO SCH ×2 (09:01→20:22)
[2018-12-30] MEDS: BUDESONIDE/FORMETEROL FUMARATE 160/4.5 mcg INHALER IH SCH ×2 (09:02→21:43)
[2018-12-30] MEDS: TIOTROPIUM BROMIDE 2.5 MCG (SPIRIVA) RESPIMAT INHALER IH SCH (09:02)
[2018-12-30] MEDS ORDERED: INVOKANA 300 MG PO SCH (10:00)
--- NOTE | 2018-12-30 10:52 | CONSULT ---
Consult Consult Specialty:: INTERNAL MEDICINE Referred by:: DR Conner Reason for Consultation:: diarrhea and dehydration - History of Present Illness Chief Complaint: diarrhea and dehydration History of Present Illness: 73 yrs old female admitted for persistent diarrhea for 5 week now She had 2 sessions of chemotherapy for right breast CA -- last one was 1 week ago--ever since she started chemotherapy per pt , she has been having loose stools No blood in stools no abd pain Feels weak Appetite decreased no fever Also has been feeling sob progressively More SOB on exertion Can lie flat without difficult 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-- recent stress test negative , CT Chest without contract earlier this year -- 10/2018-- no nodules or masses Anxious - History Source History Provided By: Patient Limitations to Obtaining History: No Limitations - Past Medical History Cardio/Vascular: Yes: HTN, Hyperlipdemia Heme/Onc: Yes: Cancer (breast CA ) Endocrine: Yes: Diabetes Mellitus - Alcohol/Substance Use Hx Alcohol Use: No - Smoking History Smoking history: Former smoker Have you smoked in the past 12 months: No If you are a former smoker, when did you quit?: 7 years Home Medications - Allergies Allergies/Adverse Reactions: Allergies Allergy/AdvReac Type Severity Reaction Status Date / Time Penicillins Allergy Intermediate Rash Verified 11/30/18 09:58 - Home Medications Home Medications: Ambulatory Orders Ascorbate Calcium [Vitamin C] 500 mg PO DAILY 01/28/17 Glipizide 5 mg PO TID 01/28/17 Levomefolate/B6/B12/Algal Oil [Metanx Capsule] 1 each PO DAILY 01/28/17 Multivit-Min/FA/Lycopen/Lutein [Centrum Silver Tablet] 1 tab PO DAILY 01/28/17 Naproxen Sodium [Aleve] 440 mg PO DAILY 01/28/17 Omeprazole 40 mg PO DAILY 01/28/17 Ramipril 2.5 mg PO HS 01/28/17 Saxagliptin HCl/Metformin HCl [Kombiglyze Xr 2.5-1,000 mg Tab] 1 tab PO BID Simvastatin 20 mg PO HS 01/28/17 Ibuprofen [Motrin -] 600 mg PO QID #28 tablet 02/03/17 Canagliflozin [Invokana] 300 mg PO DAILY 11/29/18 Gabapentin 600 mg PO HS 11/29/18 Tiotropium [place] [Spiriva] 1 inh PO DAILY 11/29/18 Albuterol Sulfate Inhaler - [Ventolin HFA Inhaler -] 1 puff PO PRN PRN 12/29/18 Loperamide HCl [Imodium -] 2 mg PO PRN PRN 12/29/18 Ondansetron HCl [Zofran] 8 mg PO PRN PRN 12/29/18 SYMBICORT 160/4.5mcg - 1 inh PO BID 12/29/18 Review of Systems - Review of Systems Constitutional: reports: Loss of Appetite, Weakness Physical Exam Vital Signs: Vital Signs Temperature 97.9 F 12/30/18 10:26 Pulse Rate 92 H 12/30/18 10:26 Respiratory Rate 20 12/30/18 10:26 Blood Pressure 123/67 12/30/18 10:26 O2 Sat by Pulse Oximetry (%) 96 12/30/18 10:26 Constitutional: Yes: No Distress, Calm Cardiovascular: Yes: Regular Rate and Rhythm Respiratory: Yes: CTA Bilaterally Gastrointestinal: Yes: Normal Bowel Sounds, Soft, Abdomen, Obese. No: Tenderness Edema: No Psychiatric: Yes: Alert, Oriented Labs: CBC, BMP 12/29/18 11:15 12/29/18 11:15 Imaging - Results Chest X-ray: Image Reviewed (no infiltrates) Problem List - Problems (1) Intractable diarrhea Code(s): R19.7 - DIARRHEA, UNSPECIFIED (2) Dehydration Code(s): E86.0 - DEHYDRATION (3) Breast cancer Code(s): C50.919 - MALIGNANT NEOPLASM OF UNSP SITE OF UNSPECIFIED FEMALE BREAST (4) Diabetes Code(s): E11.9 - TYPE 2 DIABETES MELLITUS WITHOUT COMPLICATIONS (5) HTN (hypertension) Code(s): I10 - ESSENTIAL (PRIMARY) HYPERTENSION (6) Dyspnea on exertion Code(s): R06.09 - OTHER FORMS OF DYSPNEA Assessment/Plan PLAN Diarrhea , dehydration --Stool studies --Lomotil at night -- check stool cdiff as she had chemo and also was on antibiotics for portcath infection -- iv fluids -- BRAT diet -- repeat labs today Dyspnea -- Pulmonary and cardiology consult -- EKG -- had recent echo and stress test from the office per pt -- O2 -- nebs as needed -- consider CT chest with iv contrast DM -- check BGM -- Appreciate Endocrinology eval -- on meds Breast CA -- as per Oncology team DVT prophylaxis-- Heparin sc
[2018-12-30] MEDS ORDERED: ONDANSETRON 4 MG TABLET PO PRN (11:36)
[2018-12-30] MEDS ORDERED: ALBUTEROL SO4 2.5/IPRATROPIUM 0.5 INH SOL 3 ML VIAL.NEB. NEB PRN (11:39)
[2018-12-30 11:40] VITALS: BMI 33.5
--- NOTE | 2018-12-30 12:29 | PN ---
Progress Note, Physician Chief Complaint: Pt A&Ox3; frustrated that she becomes SOB on minimal exertion. Has felt weak since beginning chemotherapy 12/17. History of Present Illness: 73 yrs old white woman with PMHx breast CA, DM, overweight, HTN, hyperliidemia, anxiety, admitted for persistent diarrhea for the past 5 weeks. She had 2 sessions of chemotherapy for right breast CA -- the first ?early November,, the last one was 1 week ago--ever since she started chemotherapy per pt , she has been having loose stools No blood in stools no abd pain Feels weak and easily dyspneic that "probably started after the summer, and before I even started chemotherapy". Appetite decreased no fever Also has been feeling sob progressively More SOB on exertion Can lie flat without difficult She had consulted her [employer]-- recent stress test negative , CT Chest without contract earlier this year -- 10/2018-- no nodules or masses - Current Medication List Current Medications: Active Medications Albuterol/Ipratropium (Duoneb -) 1 amp NEB Q6H PRN PRN Reason: SHORTNESS OF BREATH Atorvastatin Calcium (Lipitor -) 10 mg PO HS [facility] Budesonide/Formoterol Fumarate (Symbicort 160/4.5mcg -) 2 puff IH BID [facility] Last Admin: 12/30/18 09:02 Dose: 2 puff Diphenoxylate HCl/Atropine (Lomotil -) 1 combo PO HS PRN PRN Reason: DIARRHEA Gabapentin (Neurontin -) 600 mg PO HS [facility] Last Admin: 12/29/18 22:04 Dose: 600 mg Glipizide (Glucotrol -) 5 mg PO TIDAC [facility] Last Admin: 12/30/18 11:17 Dose: 5 mg Heparin Sodium (Porcine) (Heparin -) 5,000 unit SQ BID [facility] Sodium Chloride (Normal Saline -) 1,000 mls @ 42 mls/hr IV ASDIR [facility] Last Admin: 12/30/18 07:58 Dose: 42 mls/hr Insulin Aspart (Novolog Vial Sliding Scale -) 1 vial SQ TIDAC [facility]; Protocol Non Formulary: (Invokana 300 Mg) 1 each PO DAILY [facility] Non-Formulary Med: Saxagliptin/Metformin2.5 Mg-1000 1 each PO BID [facility] Ondansetron HCl (Zofran Odt -) 8 mg SL Q12H PRN PRN Reason: NAUSEA AND/OR VOMITING Ondansetron HCl (Zofran -) 8 mg PO Q8H PRN PRN Reason: NAUSEA Pantoprazole Sodium (Protonix -) 40 mg PO DAILY [facility] Last Admin: 12/30/18 09:01 Dose: 40 mg Ramipril (Altace -) 2.5 mg PO DAILY@2000 [facility] Sitagliptin Phosphate (Januvia -) 50 mg PO DAILY@0700 [facility] Tiotropium [place] (Spiriva Respimat) 2 puff IH DAILY [facility] Last Admin: 12/30/18 09:02 Dose: 2 puff - Objective Vital Signs: Vital Signs Temperature 97.9 F 12/30/18 11:34 Pulse Rate 92 H 12/30/18 11:34 Respiratory Rate 22 H 12/30/18 11:34 Blood Pressure 122/67 12/30/18 11:34 O2 Sat by Pulse Oximetry (%) 96 12/30/18 11:34 Constitutional: Yes: Anxious Eyes: Yes: WNL Labs: CBC, BMP 12/29/18 11:15 Problem List - Problems (1) Breast cancer Assessment/Plan: undergoing 2nd cycle chemotherapy. Still c/o shortness of breath on mild exertion. For ECHO (LVEF, wall motion, chamber sizes, valve status). Code(s): C50.919 - MALIGNANT NEOPLASM OF UNSP SITE OF UNSPECIFIED FEMALE BREAST (2) Dehydration Code(s): E86.0 - DEHYDRATION (3) Diabetes Assessment/Plan: On Januvia, Glucotrol, Insulin. On ACEI. Code(s): E11.9 - TYPE 2 DIABETES MELLITUS WITHOUT COMPLICATIONS (4) Dyspnea on exertion Assessment/Plan: Pt ggives hx of "mild COPD". For ECHO (undergoing 2nd cycle of chemotherapy). F/u TSH. Code(s): R06.09 - OTHER FORMS OF DYSPNEA (5) HTN (hypertension) Code(s): I10 - ESSENTIAL (PRIMARY) HYPERTENSION (6) Intractable diarrhea Code(s): R19.7 - DIARRHEA, UNSPECIFIED (7) Hypokalemia Assessment/Plan: replete K and Mg. Code(s): E87.6 - HYPOKALEMIA
[2018-12-30 12:44] LABS: ANION GAP 8 MMOL/L (8-16); BLOOD UREA NITROGEN 6 mg/dL (7-18); CALCIUM 8.3 mg/dL (8.5-10.1); CHLORIDE 107 mmol/L (98-107); CO2 21 mmol/L (21-32); CREATININE 0.4 mg/dL (0.55-1.3); GLUCOSE,RANDOM 122 mg/dL (74-106); MAGNESIUM 1.8 mg/dL (1.8-2.4); POTASSIUM 3.3 mmol/L (3.5-5.1); SODIUM 136 mmol/L (136-145)
[2018-12-30 13:14] LABS: CHOLESTEROL 72 mg/dL (50-200); HDL CHOLESTEROL 27 mg/dL (40-60); TRIGLYCERIDES 151 mg/dL (0-150)
[2018-12-30] MEDS: KCL 10 MEQ IVPB 10 MEQ/100 ML INFUS.BAG IVPB SCH ×2 (13:50→14:42)
[2018-12-30] MEDS: SODIUM CHLORIDE 0.9%/KCL 20 MEQ/1,000 ML INFUS.BAG IV SCH (14:43)
--- NOTE | 2018-12-30 16:04 | ECHO ---
Name: JORGE ALBERTO LAWRENCE Exam:Adult Echocardiogram Study Date: 12/30/2018 01:16 PM Age: 73 yrs Reason For Study: Breast Ca Height: 60 in Weight: 171 lb BSA: 1.7 m2 MMode/2D Measurements & Calculations IVSd: 1.2 cm Ao root diam: 2.9 cm LVIDd: 3.3 cm LA dimension: 2.8 cm LVIDs: 2.1 cm LVPWd: 0.88 cm EDV(Teich): 42.8 ml LVOT diam: 2.0 cm ESV(Teich): 14.1 ml LAV (MOD-bp): 26.4 ml Doppler Measurements & Calculations MV E max asim: 69.0 cm/sec Ao V2 max: 152.0 cm/sec MV A max asim: 102.8 cm/sec Ao max P.2 mmHg MV E/A: 0.67 MV dec time: 0.11 sec LILLIAN(V,D): 3.2 cm2 LV V1 max P.1 mmHg TR max asim: 247.0 cm/sec LV V1 max: 159.0 cm/sec TR max P.4 mmHg PA V2 max: 120.8 cm/sec Med Peak E' Asim: 6.5 cm/sec PA max P.8 mmHg Med E/e': 10.6 Lat Peak E' Asim: 7.8 cm/sec Lat E/e': 8.8 PI Vmax: 207.7 cm/sec Procedure A complete two-dimensional transthoracic echocardiogram was performed (2D, M-mode, Doppler and color flow Doppler). Left Ventricle The left ventricular size, thickness and function are normal. The left ventricular ejection fraction is normal. Ejection Fraction = 60-65%. The left ventricular wall motion is normal. Right Ventricle The right ventricle is normal in size and function. Atria Normal left and right atrial size and function. Mitral Valve There is no mitral regurgitation noted. Tricuspid Valve There is trace tricuspid regurgitation. Right ventricular systolic pressure is normal. Aortic Valve The aortic valve is trileaflet. No hemodynamically significant valvular aortic stenosis. No aortic regurgitation is present. Pulmonic Valve There is no pulmonic valvular regurgitation. Great Vessels The aortic root is normal size. Pericardium/Pleura There is no pericardial effusion. Interpretation Summary The left ventricular size, thickness and function are normal The right ventricle is normal in size and function. There is trace tricuspid regurgitation. MD Kiran Brady 12/30/2018 04:04 PM
[2018-12-30] MEDS: INSULIN SLIDING SCALE (NOVOLOG) 1 VIAL SQ SCH (16:26)
--- NOTE | 2018-12-30 16:52 | PN ---
Progress Note (short form) - Note Progress Note: PULMONARY CONSULTATION DICTATED 12/30/18 IMP DYSPNEA ?COPD H/O BREAST CA ON CHEMO DM DIARRHEA HTN PLAN INHALED BRONCHODILATORS CHECK RESULTS OF OUTPATIENT PFTS AMBULATORY O2 SAT D-DIMER DR SPENCER ] Problem List - Problems (1) Breast cancer Code(s): C50.919 - MALIGNANT NEOPLASM OF UNSP SITE OF UNSPECIFIED FEMALE BREAST (2) Dehydration Code(s): E86.0 - DEHYDRATION (3) Diabetes Code(s): E11.9 - TYPE 2 DIABETES MELLITUS WITHOUT COMPLICATIONS (4) Dyspnea on exertion Code(s): R06.09 - OTHER FORMS OF DYSPNEA (5) HTN (hypertension) Code(s): I10 - ESSENTIAL (PRIMARY) HYPERTENSION (6) Intractable diarrhea Code(s): R19.7 - DIARRHEA, UNSPECIFIED
--- NOTE | 2018-12-30 17:50 | CONS ---
DATE OF CONSULTATION: 12/30/2018 PULMONARY CONSULTATION REFERRING PHYSICIAN: María Elena Sanderson MD Patient is a 73-year-old white female with a past medical history of type 2 diabetes mellitus, recently diagnosed right breast carcinoma, currently maintained on chemo, last approximately 2 weeks ago, thyroid nodule, hyperlipidemia, admitted to [facility] with complaint of persistent diarrhea for approximately 5 weeks as well as shortness of breath. Patient states that since starting chemo , for the past 5 weeks she has had persistent diarrhea. She also has a 30-pound weight loss. She also has weakness. She states that she started developing shortness of breath approximately a few months ago prior to diagnosis of the breast cancer and initiation of chemotherapy. States that she ambulates on level ground and she gets short of breath. She went to a veterinary surgeon and had a PFT performed and apparently showed a mild obstructive airway disease. She had a chest CT performed which showed evidence of mild COPD with bullous changes in the right upper lobe. She was placed on inhaled bronchodilator as an outpatient, Symbicort and Spiriva, which offered no significant improvement. She was subsequently placed on albuterol which did offer some improvement. She denies any hemoptysis. She denies any chest pain or palpation. She underwent a cardiac exam which was normal and underwent an echocardiogram today which was within normal limits with no evidence of LV dysfunction or pulmonary hypertension or significant valvular heart disease. She has a history of tobacco use, approximately 1 pack a day, from teenage years until 7 years ago. 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 There is no history of DVT or PE in the past. PAST MEDICAL HISTORY: Again includes likely COPD, type 2 diabetes mellitus, history of thyroid nodule, hypertension, hyperlipidemia, diabetes, right breast carcinoma on chemotherapy. REVIEW OF SYSTEMS: No orthopnea. No PND. Positive dyspnea on exertion. Positive weakness. Positive weight loss. Positive diarrhea. No abdominal pain. No chest pain. No palpitations. No lower extremity edema. MEDICATIONS PRIOR TO ADMISSION: Include vitamin C, glipizide, Metanx capsule, Centrum Silver, Aleve, omeprazole, ramipril, metformin, saxagliptin, simvastatin , Motrin, Invokana, gabapentin, Spiriva, albuterol, Symbicort, Zofran, and Imodium. CURRENT MEDICATIONS: Include Invokana, Zofran, Symbicort, Altace, heparin, Neurontin, Lomotil, Spiriva, DuoNeb, Januvia, Lipitor, NovoLog, Protonix, normal saline, and Glucotrol. PHYSICAL EXAMINATION: General: Patient is a well-developed, well-nourished female, awake, alert, in no acute distress. Vital Signs: She is afebrile, heart rate is 92, blood pressure is 122/67 respiratory rate is 22, and O2 saturation is 96% on room air. HEENT: Exam is normocephalic, atraumatic. Neck: Supple without any adenopathy. Heart: Regular, S1, S2. Chest: Clear. Abdomen: Soft. Bowel sounds positive. Extremities: No cyanosis or edema. LABORATORIES: WBC is 11.5, hemoglobin 14.3, hematocrit 42.1, platelet count 220 ,000. INR is 1.06. BUN 6, creatinine 0.4. CHEST X-RAY: No infiltrates. No effusions. PREVIOUS CT OF THE CHEST: There are some mild bullous changes right upper lobe. Otherwise, no evidence of coronary calcification, no infiltrates, and no effusions or masses. IMPRESSION: 1. Dyspnea, likely underlying chronic obstructive pulmonary disease secondary to longstanding history of tobacco use. 2. History of breast carcinoma currently on chemotherapy. 3. Diabetes. 4. Diarrhea. 5. Hypertension. PLAN: Inhaled bronchodilators. Check results of PFTs. Ambulatory O2 saturation on room air. Obtain D-dimer, if significantly elevated will order CTA . RANJAN SPENCER M.D. THO/[id number] MTDD
--- NOTE | 2018-12-30 19:24 | PN ---
Progress Note (short form) - Note Progress Note: Patient seen and examined Feels better but still with significant diarrhea AFVSS Cor: RSR, No murmurs, No gallops Lungs: Clear to P&A Abd: Soft, Normal bowel sounds, No organomegaly Ext:No significant edema Labs/Meds reviewed A/P 73 y/o patient with stage II breast cancer, [place]-, [place]-, Her2-3+ on taxoter/carbo/ herceptin/perjeta comes in with diarrhea and shortness of breath gentle hydration cardiology/ pulm consults antidiarrheals r/o c. diff
[2018-12-30] MEDS ORDERED: LOPERAMIDE HCL 2 MG CAPSULE PO PRN (19:34)
[2018-12-30] MEDS: ATORVASTATIN CA 10 MG TABLET (FP) PO SCH (21:44)
[2018-12-30] MEDS: GABAPENTIN 300 MG CAPSULE (FP) PO SCH (21:44)
[2018-12-30] MEDS: HEPARIN NA (PORCINE) 5,000 UNITS/ML 1ML VIAL SQ SCH (21:44)
[2018-12-30] MEDS ORDERED: SYMBICORT PO SCH (22:00)
[2018-12-30] MEDS ORDERED: PATIENT'S OWN MEDICATION (NON-FORMULARY) (Gabapentin [Gabapentin] 600 MG) PO SCH (22:00)
[2018-12-30] MEDS: DIPHENOXYLATE 2.5/ATROPINE.025 1 COMBO TABLET PO PRN (22:20)
[2018-12-31] MEDS: INSULIN SLIDING SCALE (NOVOLOG) 1 VIAL SQ SCH ×3 (06:02→16:22)
[2018-12-31] MEDS: sitaGLIPtin PHOSPHATE 50 MG TABLET PO SCH (06:02)
[2018-12-31] MEDS: glipiZIDE 5 MG TABLET (FP) PO SCH ×3 (06:02→16:22)
[2018-12-31 07:37] LABS: BASO % 1.2 % (0-2.0); HEMOGLOBIN 12.3 GM/dL (10.7-15.3); LYMPH % 12.5 % (8-40); MCH 30.3 pg (25.7-33.7); MCHC 33.1 g/dl (32.0-36.0); MEAN CELL VOLUME 91.7 fl (80-96); MEAN PLT VOLUME 9.1 fl (7.5-11.1); NEUT % 76.3 % (42.8-82.8); PLATELET COUNT 206 K/MM3 (134-434); RBC 4.04 M/mm3 (3.60-5.2); RDW 14.6 % (11.6-15.6); WHITE BLOOD COUNT 24.4 K/mm3 (4.0-10.0)
[2018-12-31 07:57] LABS: ALBUMIN 3.2 g/dl (3.4-5.0); ALK PHOS 137 U/L (45-117); ANION GAP 9 MMOL/L (8-16); BILIRUBIN,TOTAL 0.4 mg/dL (0.2-1); BLOOD UREA NITROGEN 5 mg/dL (7-18); CALCIUM 8.5 mg/dL (8.5-10.1); CHLORIDE 107 mmol/L (98-107); CO2 22 mmol/L (21-32); CREATININE 0.5 mg/dL (0.55-1.3); GLUCOSE,RANDOM 102 mg/dL (74-106); MAGNESIUM 1.6 mg/dL (1.8-2.4); POTASSIUM 3.4 mmol/L (3.5-5.1); SGOT/AST 22 U/L (15-37); SGPT/ALT 32 U/L (13-61); SODIUM 138 mmol/L (136-145); TOT PROT 5.8 g/dl (6.4-8.2)
--- NOTE | 2018-12-31 09:49 | PN ---
Progress Note (short form) - Note Progress Note: pt seen/ examined chart reviewed feels better but weak Vital Signs Temp 97.7 F 12/31/18 06:19 Pulse 99 H 12/31/18 06:19 Resp 20 12/31/18 06:19 BP 110/60 12/31/18 06:19 Pulse Ox 94 L 12/30/18 21:00 Intake & Output 12/30/18 12/30/18 12/31/18 11:59 23:59 11:59 Intake Total 1304 344 Balance 1304 344 Weight 171 lb 9.6 oz Intake: IV 504 294 NS+20 MEQ KCL - 20 meq In 252 294 1,000 ml @ 42 mls/hr IV ASDIR [facility] Rx#:[id number] Normal Saline - 1,000 ml 252 @ 42 mls/hr IV ASDIR [facility] Rx#:[id number] IVPB 200 Oral 600 50 Other: Voiding Method Toilet Toilet # Unmeasured Voids Void 1 1 Bowel Movement Yes: multiple loose stools Yes # Bowel Movements 5 Height 5 ft Body Mass Index (BMI) 33.5 Weight Measurement Method Standing Scale Active Medications Albuterol Sulfate (Ventolin 0.083% Nebulizer Soln -) 1 amp NEB Q4H PRN PRN Reason: SHORT OF BREATH/WHEEZING Atorvastatin Calcium (Lipitor -) 10 mg PO HS [facility] Last Admin: 12/30/18 21:44 Dose: 10 mg Budesonide/Formoterol Fumarate (Symbicort 160/4.5mcg -) 2 puff IH BID [facility] Last Admin: 12/30/18 21:43 Dose: 2 puff Diphenoxylate HCl/Atropine (Lomotil -) 1 combo PO HS PRN PRN Reason: DIARRHEA Last Admin: 12/30/18 22:20 Dose: 1 combo Gabapentin (Neurontin -) 600 mg PO HS [facility] Last Admin: 12/30/18 21:44 Dose: 600 mg Glipizide (Glucotrol -) 5 mg PO TIDAC [facility] Last Admin: 12/31/18 06:02 Dose: 5 mg Heparin Sodium (Porcine) (Heparin -) 5,000 unit SQ BID [facility] Last Admin: 12/30/18 21:44 Dose: 5,000 unit Potassium Chloride/Sodium Chloride (Ns+20 Meq Kcl -) 20 meq in 1,000 mls @ 42 mls/hr IV ASDIR [facility] Last Admin: 12/30/18 14:43 Dose: 42 mls/hr Insulin Aspart (Novolog Vial Sliding Scale -) 1 vial SQ TIDAC [facility]; Protocol Last Admin: 12/31/18 06:02 Dose: Not Given Loperamide HCl (Imodium -) 2 mg PO Q4H PRN PRN Reason: DIARRHEA Last Admin: 12/30/18 20:22 Dose: 2 mg Non Formulary: (Invokana 300 Mg) 1 each PO DAILY [facility] Non-Formulary Med: Saxagliptin/Metformin2.5 Mg-1000 1 each PO BID [facility] Ondansetron HCl (Zofran Odt -) 8 mg SL Q12H PRN PRN Reason: NAUSEA AND/OR VOMITING Ondansetron HCl (Zofran -) 8 mg PO Q8H PRN PRN Reason: NAUSEA Pantoprazole Sodium (Protonix -) 40 mg PO DAILY [facility] Last Admin: 12/30/18 09:01 Dose: 40 mg Ramipril (Altace -) 2.5 mg PO DAILY@2000 [facility] Last Admin: 12/30/18 20:22 Dose: 2.5 mg Sitagliptin Phosphate (Januvia -) 50 mg PO DAILY@0700 [facility] Last Admin: 12/31/18 06:02 Dose: 50 mg Tiotropium [place] (Spiriva Respimat) 2 puff IH DAILY [facility] Last Admin: 12/30/18 09:02 Dose: 2 puff CBC, BMP 12/31/18 06:00 12/31/18 06:00 Microbiology 12/29/18 20:45 Clostridioides difficile Antigen - Final Stool Clostridioides difficile Toxin Assay - Final Physical Exam Constitutional: Yes: No Distress, Calm Cardiovascular: Yes: Regular Rate and Rhythm Respiratory: Yes: CTA Bilaterally Gastrointestinal: Yes: Normal Bowel Sounds, Soft, Abdomen, Obese. No: Tenderness Edema: No Psychiatric: Yes: Alert, Oriented Imaging - Results Chest X-ray: Image Reviewed (no infiltrates) Problem List - Problems (1) Intractable diarrhea Code(s): R19.7 - DIARRHEA, UNSPECIFIED (2) Dehydration Code(s): E86.0 - DEHYDRATION (3) Breast cancer Code(s): C50.919 - MALIGNANT NEOPLASM OF UNSP SITE OF UNSPECIFIED FEMALE BREAST (4) Diabetes Code(s): E11.9 - TYPE 2 DIABETES MELLITUS WITHOUT COMPLICATIONS (5) HTN (hypertension) Code(s): I10 - ESSENTIAL (PRIMARY) HYPERTENSION (6) Dyspnea on exertion Code(s): R06.09 - OTHER FORMS OF DYSPNEA Assessment/Plan PLAN Diarrhea , dehydration --Stool studies --Lomotil at night -- c diff -ve -- iv fluids -- BRAT diet -- Dyspnea -- Pulmonary and cardiology consult noted -- EKG -- had recent echo and stress test from the office per pt -- O2 -- nebs as needed -- DM -- check BGM -- Appreciate Endocrinology eval -- on meds Breast CA -- as per Oncology team DVT prophylaxis-- Heparin sc will follow
[2018-12-31] MEDS ORDERED: PATIENT'S OWN MEDICATION (NON-FORMULARY) (Tiotropium Bromide [Spiriva] 1 INH) PO SCH (10:00)
[2018-12-31] MEDS: PANTOPRAZOLE 40 MG TABLET (FP) PO SCH (10:13)
[2018-12-31] MEDS: TIOTROPIUM BROMIDE 2.5 MCG (SPIRIVA) RESPIMAT INHALER IH SCH (10:13)
[2018-12-31] MEDS: BUDESONIDE/FORMETEROL FUMARATE 160/4.5 mcg INHALER IH SCH ×2 (10:13→21:11)
[2018-12-31] MEDS: HEPARIN NA (PORCINE) 5,000 UNITS/ML 1ML VIAL SQ SCH ×2 (10:13→21:11)
[2018-12-31] MEDS ORDERED: PT OWN MED DRAWER 7, Y5N ONE (10:50)
[2018-12-31] MEDS ORDERED: INSULIN (NOVOLOG) ASPART 100 UNITS/ML 10ML VIAL ONE (11:00)
[2018-12-31 12:12] LABS: ANISOCYTOSIS 0; MACROCYTOSIS 0; PLATELET ESTIMATE NORMAL; TOXIC GRANULATION 1+
--- NOTE | 2018-12-31 13:15 | PN ---
Progress Note, Physician - Current Medication List Current Medications: Active Medications Albuterol Sulfate (Ventolin 0.083% Nebulizer Soln -) 1 amp NEB Q4H PRN PRN Reason: SHORT OF BREATH/WHEEZING Atorvastatin Calcium (Lipitor -) 10 mg PO HS [facility] Last Admin: 12/30/18 21:44 Dose: 10 mg Budesonide/Formoterol Fumarate (Symbicort 160/4.5mcg -) 2 puff IH BID [facility] Last Admin: 12/31/18 10:13 Dose: 2 puff Diphenoxylate HCl/Atropine (Lomotil -) 1 combo PO HS PRN PRN Reason: DIARRHEA Last Admin: 12/30/18 22:20 Dose: 1 combo Gabapentin (Neurontin -) 600 mg PO [facility] Last Admin: 12/30/18 21:44 Dose: 600 mg Glipizide (Glucotrol -) 5 mg PO TIDAC [facility] Last Admin: 12/31/18 11:11 Dose: 5 mg Heparin Sodium (Porcine) (Heparin -) 5,000 unit SQ BID [facility] Last Admin: 12/31/18 10:13 Dose: 5,000 unit Potassium Chloride/Sodium Chloride (Ns+20 Meq Kcl -) 20 meq in 1,000 mls @ 42 mls/hr IV ASDIR [facility] Last Admin: 12/30/18 14:43 Dose: 42 mls/hr Insulin Aspart (Novolog Vial Sliding Scale -) 1 vial SQ TIDAC [facility]; Protocol Last Admin: 12/31/18 11:12 Dose: Not Given Loperamide HCl (Imodium -) 2 mg PO Q4H PRN PRN Reason: DIARRHEA Last Admin: 12/30/18 20:22 Dose: 2 mg Non Formulary: (Invokana 300 Mg) 1 each PO DAILY [facility] Non-Formulary Med: Saxagliptin/Metformin2.5 Mg-1000 1 each PO BID [facility] Ondansetron HCl (Zofran Odt -) 8 mg SL Q12H PRN PRN Reason: NAUSEA AND/OR VOMITING Ondansetron HCl (Zofran -) 8 mg PO Q8H PRN PRN Reason: NAUSEA Pantoprazole Sodium (Protonix -) 40 mg PO DAILY [facility] Last Admin: 12/31/18 10:13 Dose: 40 mg Ramipril (Altace -) 2.5 mg PO DAILY@1999 [facility] Last Admin: 12/30/18 20:22 Dose: 2.5 mg Sitagliptin Phosphate (Januvia -) 50 mg PO DAILY@0700 [facility] Last Admin: 12/31/18 06:02 Dose: 50 mg Tiotropium [place] (Spiriva Respimat) 2 puff IH DAILY [facility] Last Admin: 12/31/18 10:13 Dose: 2 puff - Objective Vital Signs: Vital Signs Temperature 97.8 F 12/31/18 09:59 Pulse Rate 96 H 12/31/18 09:59 Respiratory Rate 20 12/31/18 09:59 Blood Pressure 124/70 12/31/18 09:59 O2 Sat by Pulse Oximetry (%) 95 12/31/18 09:00 Eyes: Yes: WNL, Conjunctiva Clear, EOM Intact HENT: Yes: WNL, Atraumatic, Normocephalic Neck: Yes: WNL, Supple, Trachea Midline Cardiovascular: Yes: WNL, Regular Rate and Rhythm Respiratory: Yes: WNL, Regular, CTA Bilaterally Gastrointestinal: Yes: WNL, Normal Bowel Sounds Genitourinary: Yes: WNL Musculoskeletal: Yes: WNL Extremities: Yes: WNL Edema: No Integumentary: Yes: WNL Neurological: Yes: WNL, Alert, Oriented ...Motor Strength: WNL Psychiatric: Yes: WNL Labs: CBC, BMP 12/31/18 06:00 12/31/18 06:00 Assessment/Plan - Problems (1) Breast cancer Assessment/Plan: undergoing 2nd cycle chemotherapy. Still c/o shortness of breath on mild exertion. For ECHO (LVEF, wall motion, chamber sizes, valve status). Code(s): C50.919 - MALIGNANT NEOPLASM OF UNSP SITE OF UNSPECIFIED FEMALE BREAST (2) Dehydration Code(s): E86.0 - DEHYDRATION (3) Diabetes Assessment/Plan: On Januvia, Glucotrol, Insulin. On ACEI. Code(s): E11.9 - TYPE 2 DIABETES MELLITUS WITHOUT COMPLICATIONS (4) Dyspnea on exertion Assessment/Plan: Pt ggives hx of "mild COPD". For ECHO (undergoing 2nd cycle of chemotherapy). F/u TSH. Code(s): R06.09 - OTHER FORMS OF DYSPNEA (5) HTN (hypertension) Code(s): I10 - ESSENTIAL (PRIMARY) HYPERTENSION (6) Intractable diarrhea Code(s): R19.7 - DIARRHEA, UNSPECIFIED (7) Hypokalemia Assessment/Plan: replete K and Mg. Code(s): E87.6 - HYPOKALEMIA
[2018-12-31] MEDS: SODIUM CHLORIDE 0.9%/KCL 20 MEQ/1,000 ML INFUS.BAG IV SCH (14:06)
--- NOTE | 2018-12-31 15:48 | PN ---
Progress Note, Physician History of Present Illness: PULMONARY ALERT,COMFORTABLE AT REST LESS DYSPNEIC WITH EXERTION. D-DIMER 323 NL - Current Medication List Current Medications: Active Medications Albuterol Sulfate (Ventolin 0.083% Nebulizer Soln -) 1 amp NEB Q4H PRN PRN Reason: SHORT OF BREATH/WHEEZING Atorvastatin Calcium (Lipitor -) 10 mg PO HS [facility] Last Admin: 12/30/18 21:44 Dose: 10 mg Budesonide/Formoterol Fumarate (Symbicort 160/4.5mcg -) 2 puff IH BID [facility] Last Admin: 12/31/18 10:13 Dose: 2 puff Diphenoxylate HCl/Atropine (Lomotil -) 1 combo PO HS PRN PRN Reason: DIARRHEA Last Admin: 12/30/18 22:20 Dose: 1 combo Gabapentin (Neurontin -) 600 mg PO HS [facility] Last Admin: 12/30/18 21:44 Dose: 600 mg Glipizide (Glucotrol -) 5 mg PO TIDAC [facility] Last Admin: 12/31/18 11:11 Dose: 5 mg Heparin Sodium (Porcine) (Heparin -) 5,000 unit SQ BID [facility] Last Admin: 12/31/18 10:13 Dose: 5,000 unit Potassium Chloride/Sodium Chloride (Ns+20 Meq Kcl -) 20 meq in 1,000 mls @ 42 mls/hr IV ASDIR [facility] Last Admin: 12/31/18 14:06 Dose: 42 mls/hr Insulin Aspart (Novolog Vial Sliding Scale -) 1 vial SQ TIDAC [facility]; Protocol Last Admin: 12/31/18 11:12 Dose: Not Given Loperamide HCl (Imodium -) 2 mg PO Q4H PRN PRN Reason: DIARRHEA Last Admin: 12/30/18 20:22 Dose: 2 mg Non Formulary: (Invokana 300 Mg) 1 each PO DAILY [facility] Non-Formulary Med: Saxagliptin/Metformin2.5 Mg-1000 1 each PO BID [facility] Ondansetron HCl (Zofran Odt -) 8 mg SL Q12H PRN PRN Reason: NAUSEA AND/OR VOMITING Ondansetron HCl (Zofran -) 8 mg PO Q8H PRN PRN Reason: NAUSEA Pantoprazole Sodium (Protonix -) 40 mg PO DAILY [facility] Last Admin: 12/31/18 10:13 Dose: 40 mg Ramipril (Altace -) 2.5 mg PO DAILY@2000 [facility] Last Admin: 12/30/18 20:22 Dose: 2.5 mg Sitagliptin Phosphate (Januvia -) 50 mg PO DAILY@0700 [facility] Last Admin: 12/31/18 06:02 Dose: 50 mg Tiotropium [place] (Spiriva Respimat) 2 puff IH DAILY [facility] Last Admin: 12/31/18 10:13 Dose: 2 puff - Objective Vital Signs: Vital Signs Temperature 98.7 F 12/31/18 13:42 Pulse Rate 103 H 12/31/18 13:42 Respiratory Rate 20 12/31/18 13:42 Blood Pressure 121/59 L 12/31/18 13:42 O2 Sat by Pulse Oximetry (%) 95 12/31/18 09:00 Constitutional: Yes: Well Nourished, Calm Eyes: Yes: WNL HENT: Yes: WNL Neck: Yes: WNL Cardiovascular: Yes: Regular Rate and Rhythm, S1, S2 Respiratory: Yes: CTA Bilaterally Gastrointestinal: Yes: Normal Bowel Sounds, Soft Extremities: Yes: WNL Edema: No Labs: CBC, BMP 12/31/18 06:00 12/31/18 06:00 Laboratory Tests 12/30/18 17:40 D-Dimer 323 Problem List - Problems (1) Breast cancer Code(s): C50.919 - MALIGNANT NEOPLASM OF UNSP SITE OF UNSPECIFIED FEMALE BREAST (2) Dehydration Code(s): E86.0 - DEHYDRATION (3) Diabetes Code(s): E11.9 - TYPE 2 DIABETES MELLITUS WITHOUT COMPLICATIONS (4) Dyspnea on exertion Code(s): R06.09 - OTHER FORMS OF DYSPNEA (5) HTN (hypertension) Code(s): I10 - ESSENTIAL (PRIMARY) HYPERTENSION (6) Intractable diarrhea Code(s): R19.7 - DIARRHEA, UNSPECIFIED Assessment/Plan IMP DYSPNEA ?COPD H/O BREAST CA ON CHEMO DM DIARRHEA IMPROVING HTN PLAN INHALED BRONCHODILATORS CHECK RESULTS OF OUTPATIENT PFTS AMBULATORY O2 SAT DR SPENCER ] Problem List - Problems (1) Breast cancer Code(s): C50.919 - MALIGNANT NEOPLASM OF UNSP SITE OF UNSPECIFIED FEMALE BREAST (2) Dehydration Code(s): E86.0 - DEHYDRATION (3) Diabetes Code(s): E11.9 - TYPE 2 DIABETES MELLITUS WITHOUT COMPLICATIONS (4) Dyspnea on exertion Code(s): R06.09 - OTHER FORMS OF DYSPNEA (5) HTN (hypertension) Code(s): I10 - ESSENTIAL (PRIMARY) HYPERTENSION (6) Intractable diarrhea Code(s): R19.7 - DIARRHEA, UNSPECIFIED
[2018-12-31] MEDS: ALBUTEROL SO4 0.083% IH SOL 2.5 MG/3 ML VIAL.NEB. NEB PRN (16:04)
[2018-12-31] MEDS ORDERED: POTASSIUM CHLORIDE TABS 20 MEQ TABLET.ER (FP) PO ONE (17:12)
--- NOTE | 2018-12-31 17:25 | PN ---
Progress Note (short form) - Note Progress Note: Patient seen and examined Feels better but still with significant diarrhea Last Vital Signs Temp Pulse Resp BP Pulse Ox 98.7 F 103 H 20 121/59 L 95 12/31/18 13:42 12/31/18 13:42 12/31/18 13:42 12/31/18 13:42 12/31/18 09:00 Cor: RSR, No murmurs, No gallops Lungs: Clear to P&A Abd: Soft, Normal bowel sounds, No organomegaly Ext:No significant edema Abnormal Lab Results 12/31/18 12/31/18 06:00 06:00 WBC 24.4 H Absolute Neuts (auto) 18.6 H Potassium 3.4 L BUN 5 L Creatinine 0.5 L Magnesium 1.6 L Alkaline Phosphatase 137 H Total Protein 5.8 L Albumin 3.2 L Home Medication List Medication Instructions Recorded Confirmed Type Ascorbate Calcium [Vitamin C] 500 mg PO DAILY 01/28/17 11/30/18 History Glipizide 5 mg PO TID 01/28/17 12/29/18 History Levomefolate/B6/B12/Algal Oil 1 each PO DAILY 01/28/17 11/30/18 History [Metanx Capsule] Multivit-Min/FA/Lycopen/Lutein 1 tab PO DAILY 01/28/17 11/30/18 History [Centrum Silver Tablet] Naproxen Sodium [Aleve] 440 mg PO DAILY 01/28/17 11/30/18 History Omeprazole 40 mg PO DAILY 01/28/17 12/29/18 History Ramipril 2.5 mg PO HS 01/28/17 12/29/18 History Saxagliptin HCl/Metformin HCl 1 tab PO BID 01/28/17 12/29/18 History [Kombiglyze Xr 2.5-1,000 mg Tab] Simvastatin 20 mg PO HS 01/28/17 12/29/18 History Canagliflozin [Invokana] 300 mg PO DAILY 11/29/18 12/29/18 History Gabapentin 600 mg PO HS 11/29/18 12/29/18 History Tiotropium [place] [Spiriva] 1 inh PO DAILY 11/29/18 12/29/18 History Albuterol Sulfate Inhaler - 1 puff PO PRN PRN 12/29/18 12/29/18 History [Ventolin HFA Inhaler -] Loperamide HCl [Imodium -] 2 mg PO PRN PRN 12/29/18 12/29/18 History Ondansetron HCl [Zofran] 8 mg PO PRN PRN 12/29/18 12/29/18 History SYMBICORT 160/4.5mcg - 1 inh PO BID 12/29/18 12/29/18 History Active Medications Generic Name Dose Route Start Last Admin Trade Name Freq PRN Reason Stop Dose Admin Albuterol Sulfate 1 amp 12/30/18 17:05 12/31/18 16:04 Ventolin 0.083% Nebulizer Soln - NEB 1 amp Q4H PRN Administration SHORT OF BREATH/WHEEZING Atorvastatin Calcium 10 mg 12/30/18 22:00 12/30/18 21:44 Lipitor - PO 10 mg HS LUL Administration Budesonide/Formoterol Fumarate 2 puff 12/29/18 22:00 12/31/18 10:13 Symbicort 160/4.5mcg - IH 2 puff BID LUL Administration Diphenoxylate HCl/Atropine 1 combo 12/30/18 11:19 12/30/18 22:20 Lomotil - PO 1 combo HS PRN Administration DIARRHEA Gabapentin 600 mg 12/29/18 22:00 12/30/18 21:44 Neurontin - PO 600 mg HS LUL Administration Glipizide 5 mg 12/30/18 07:00 12/31/18 16:22 Glucotrol - PO 5 mg TIDAC LUL Administration Heparin Sodium (Porcine) 5,000 unit 12/30/18 22:00 12/31/18 10:13 Heparin - SQ 5,000 unit BID LUL Administration Potassium Chloride/Sodium Chloride 20 meq in 1,000 mls @ 42 mls/hr 12/30/18 13 :06 12/31/18 14:06 Ns+20 Meq Kcl - IV 42 mls/hr ASDIR LUL Administration Insulin Aspart 1 vial 12/30/18 16:30 12/31/18 16:22 Novolog Vial Sliding Scale - SQ 4 units TIDAC LUL Administration Protocol Loperamide HCl 2 mg 12/30/18 19:34 12/30/18 20:22 Imodium - PO 2 mg Q4H PRN Administration DIARRHEA Non Formulary: 1 each 12/30/18 10:00 Invokana 300 Mg PO DAILY [facility] Non-Formulary Med: 1 each 12/29/18 22:00 Saxagliptin/ PO Metformin2.5 Mg-1000 BID [facility] Ondansetron HCl 8 mg 12/29/18 20:22 Zofran Odt - SL Q12H PRN NAUSEA AND/OR VOMITING Ondansetron HCl 8 mg 12/30/18 11:36 Zofran - PO Q8H PRN NAUSEA Pantoprazole Sodium 40 mg 12/30/18 10:00 12/31/18 10:13 Protonix - PO 40 mg DAILY LUL Administration Potassium Chloride 20 meq 01/01/19 10:00 K-Dur - PO DAILY LUL Potassium Chloride 20 meq 12/31/18 17:12 K-Dur - PO 12/31/18 17:13 ONCE ONE Ramipril 2.5 mg 12/30/18 20:00 12/30/18 20:22 Altace - PO 2.5 mg DAILY@2000 LUL Administration Sitagliptin Phosphate 50 mg 12/31/18 07:00 12/31/18 06:02 Januvia - PO 50 mg DAILY@0700 LUL Administration Tiotropium [place] 2 puff 12/30/18 10:00 12/31/18 10:13 Spiriva Respimat IH 2 puff DAILY LUL Administration A/P 73 y/o patient with stage II breast cancer, ER-, [place]-, Her2-3+ on taxotere/carbo/ herceptin/perjeta comes in with diarrhea and shortness of breath gentle hydration antidiarrheals replete potasium/magnesium
[2018-12-31] MEDS: GABAPENTIN 300 MG CAPSULE (FP) PO SCH (21:12)
[2018-12-31] MEDS: RAMIPRIL 2.5 MG CAPSULE (FP) PO SCH (21:12)
[2018-12-31] MEDS: ATORVASTATIN CA 10 MG TABLET (FP) PO SCH (21:12)
[2018-12-31] MEDS: DIPHENOXYLATE 2.5/ATROPINE.025 1 COMBO TABLET PO PRN (23:02)
[2019-01-01] MEDS: INSULIN SLIDING SCALE (NOVOLOG) 1 VIAL SQ SCH ×2 (06:05→11:13)
[2019-01-01] MEDS: glipiZIDE 5 MG TABLET (FP) PO SCH ×2 (06:06→11:13)
[2019-01-01] MEDS: sitaGLIPtin PHOSPHATE 50 MG TABLET PO SCH (06:06)
[2019-01-01] MEDS: ALBUTEROL SO4 0.083% IH SOL 2.5 MG/3 ML VIAL.NEB. NEB PRN (07:20)
[2019-01-01 07:49] LABS: BASO % 0.5 % (0-2.0); EOS % 0.4 % (0-4.5); HEMATOCRIT 34.4 % (32.4-45.2); HEMOGLOBIN 11.5 GM/dL (10.7-15.3); LYMPH % 10.3 % (8-40); MCH 30.6 pg (25.7-33.7); MCHC 33.3 g/dl (32.0-36.0); MEAN PLT VOLUME 9.3 fl (7.5-11.1); MONO % 5.6 % (3.8-10.2); NEUT % 83.2 % (42.8-82.8); PLATELET COUNT 166 K/MM3 (134-434); RBC 3.74 M/mm3 (3.60-5.2); RDW 14.8 % (11.6-15.6); WHITE BLOOD COUNT 26.9 K/mm3 (4.0-10.0)
[2019-01-01 08:08] LABS: ALBUMIN 2.7 g/dl (3.4-5.0); ALK PHOS 127 U/L (45-117); ANION GAP 9 MMOL/L (8-16); BILIRUBIN,TOTAL 0.4 mg/dL (0.2-1); BLOOD UREA NITROGEN 5 mg/dL (7-18); CALCIUM 7.3 mg/dL (8.5-10.1); CHLORIDE 111 mmol/L (98-107); CO2 23 mmol/L (21-32); CREATININE 0.5 mg/dL (0.55-1.3); GLUCOSE,RANDOM 92 mg/dL (74-106); POTASSIUM 3.7 mmol/L (3.5-5.1); SGOT/AST 42 U/L (15-37); SGPT/ALT 42 U/L (13-61); SODIUM 143 mmol/L (136-145); TOT PROT 5.3 g/dl (6.4-8.2)
[2019-01-01 08:25] VITALS: BP 108/56; PULSE 116; TEMP 98.6
--- NOTE | 2019-01-01 08:34 | PN ---
Progress Note (short form) - Note Progress Note: pt seen/ examined feels much better denies pain says diarrhea resolved afebrile Vital Signs Temp 98.6 F 01/01/19 08:24 Pulse 116 H 01/01/19 08:24 Resp 20 01/01/19 08:24 BP 108/56 L 01/01/19 08:24 Pulse Ox 92 L 01/01/19 08:19 Intake & Output 12/31/18 12/31/18 01/01/19 11:59 23:59 11:59 Intake Total 344 1884 794 Balance 344 1884 794 Intake: IV 294 504 294 NS+20 MEQ KCL - 20 meq In 294 504 294 1,000 ml @ 42 mls/hr IV ASDIR [facility] Rx#:[id number] Oral 50 1380 500 Other: Voiding Method Toilet Toilet Toilet # Unmeasured Voids Void 1 2 Bowel Movement Yes No Active Medications Albuterol Sulfate (Ventolin 0.083% Nebulizer Soln -) 1 amp NEB Q4H PRN PRN Reason: SHORT OF BREATH/WHEEZING Last Admin: 01/01/19 07:20 Dose: 1 amp Atorvastatin Calcium (Lipitor -) 10 mg PO HS [facility] Last Admin: 12/31/18 21:12 Dose: 10 mg Budesonide/Formoterol Fumarate (Symbicort 160/4.5mcg -) 2 puff IH BID [facility] Last Admin: 12/31/18 21:11 Dose: 2 puff Diphenoxylate HCl/Atropine (Lomotil -) 1 combo PO HS PRN PRN Reason: DIARRHEA Last Admin: 12/31/18 23:02 Dose: 1 combo Gabapentin (Neurontin -) 600 mg PO HS [facility] Last Admin: 12/31/18 21:12 Dose: 600 mg Glipizide (Glucotrol -) 5 mg PO TIDAC LUL Last Admin: 01/01/19 06:06 Dose: 5 mg Heparin Sodium (Porcine) (Heparin -) 5,000 unit SQ BID LUL Last Admin: 12/31/18 21:11 Dose: 5,000 unit Potassium Chloride/Sodium Chloride (Ns+20 Meq Kcl -) 20 meq in 1,000 mls @ 42 mls/hr IV ASDIR [facility] Last Admin: 12/31/18 14:06 Dose: 42 mls/hr Insulin Aspart (Novolog Vial Sliding Scale -) 1 vial SQ TIDAC [facility]; Protocol Last Admin: 01/01/19 06:05 Dose: Not Given Loperamide HCl (Imodium -) 2 mg PO Q4H PRN PRN Reason: DIARRHEA Last Admin: 12/30/18 20:22 Dose: 2 mg Non Formulary: (Invokana 300 Mg) 1 each PO DAILY [facility] Non-Formulary Med: Saxagliptin/Metformin2.5 Mg-1000 1 each PO BID [facility] Ondansetron HCl (Zofran Odt -) 8 mg SL Q12H PRN PRN Reason: NAUSEA AND/OR VOMITING Ondansetron HCl (Zofran -) 8 mg PO Q8H PRN PRN Reason: NAUSEA Pantoprazole Sodium (Protonix -) 40 mg PO DAILY [facility] Last Admin: 12/31/18 10:13 Dose: 40 mg Potassium Chloride (K-Dur -) 20 meq PO DAILY [facility] Ramipril (Altace -) 2.5 mg PO DAILY@2000 [facility] Last Admin: 12/31/18 21:12 Dose: 2.5 mg Sitagliptin Phosphate (Januvia -) 50 mg PO DAILY@0700 [facility] Last Admin: 01/01/19 06:06 Dose: 50 mg Tiotropium [place] (Spiriva Respimat) 2 puff IH DAILY [facility] Last Admin: 12/31/18 10:13 Dose: 2 puff CBC, BMP 01/01/19 05:45 01/01/19 05:45 Physical Exam Constitutional: Yes: No Distress,comfortable Cardiovascular: Yes: Regular Rate and Rhythm Respiratory: Yes: CTA Bilaterally Gastrointestinal: Yes: Normal Bowel Sounds, Soft, Abdomen, Obese. No: Tenderness Edema: No Psychiatric: Yes: Alert, Oriented Imaging - Results Chest X-ray: Image Reviewed (no infiltrates) Problem List - Problems (1) Intractable diarrhea Code(s): R19.7 - DIARRHEA, UNSPECIFIED (2) Dehydration Code(s): E86.0 - DEHYDRATION (3) Breast cancer Code(s): C50.919 - MALIGNANT NEOPLASM OF UNSP SITE OF UNSPECIFIED FEMALE BREAST (4) Diabetes Code(s): E11.9 - TYPE 2 DIABETES MELLITUS WITHOUT COMPLICATIONS (5) HTN (hypertension) Code(s): I10 - ESSENTIAL (PRIMARY) HYPERTENSION (6) Dyspnea on exertion Code(s): R06.09 - OTHER FORMS OF DYSPNEA Assessment/Plan better continue present care medically stable will follow
--- NOTE | 2019-01-01 08:52 | DS ---
Physical Examination Vital Signs: Vital Signs Temperature 98.6 F 01/01/19 08:24 Pulse Rate 116 H 01/01/19 08:24 Respiratory Rate 20 01/01/19 08:24 Blood Pressure 108/56 L 01/01/19 08:24 O2 Sat by Pulse Oximetry (%) 92 L 01/01/19 08:19 Findings/Remarks: see today progress note Labs: CBC, BMP 01/01/19 05:45 01/01/19 05:45 Discharge Summary Reason For Visit: SHORTNESS OF BREATH Current Active Problems Breast cancer (Acute) Dehydration (Acute) Diabetes (Acute) Dyspnea on exertion (Acute) HTN (hypertension) (Acute) Hypokalemia (Acute) Intractable diarrhea (Acute) Hospital Course: 73 y/o patient with stage II breast cancer, ER-, [place]-, Her2-3+ on taxotere/carbo/ herceptin/perjeta comes in with diarrhea and shortness of breath gentle hydration antidiarrheals treated with hydration lomotil helped c diff -ve much better wants to go home d/c home today meds reconcilled prescribed as needed f/u with pmd- Dr. Sanderson/ oncology as advised . Discussed with Nursing staff also Condition: Stable - Instructions Disposition: HOME - Home Medications Comprehensive Discharge Medication List: Ambulatory Orders Ascorbate Calcium [Vitamin C] 500 mg PO DAILY 01/28/17 Glipizide 5 mg PO TID 01/28/17 Levomefolate/B6/B12/Algal Oil [Metanx Capsule] 1 each PO DAILY 01/28/17 Multivit-Min/FA/Lycopen/Lutein [Centrum Silver Tablet] 1 tab PO DAILY 01/28/17 Naproxen Sodium [Aleve] 440 mg PO DAILY 01/28/17 Omeprazole 40 mg PO DAILY 01/28/17 Ramipril 2.5 mg PO HS 01/28/17 Saxagliptin HCl/Metformin HCl [Kombiglyze Xr 2.5-1,000 mg Tab] 1 tab PO BID Simvastatin 20 mg PO HS 01/28/17 Canagliflozin [Invokana] 300 mg PO DAILY 11/29/18 Gabapentin 600 mg PO HS 11/29/18 Tiotropium [place] [Spiriva] 1 inh PO DAILY 11/29/18 Albuterol Sulfate Inhaler - [Ventolin HFA Inhaler -] 1 puff PO PRN PRN 12/29/18 Loperamide HCl [Imodium -] 2 mg PO PRN PRN 12/29/18 Ondansetron HCl [Zofran] 8 mg PO PRN PRN 12/29/18 SYMBICORT 160/4.5mcg - 1 inh PO BID 12/29/18 Diphenoxylate 2.5/Atropine.025 [Lomotil -] 1 combo PO HS PRN #15 tablet MDD 1 Sitagliptin Phosphate [Januvia -] 50 mg PO DAILY@0700 tablet 01/01/19
--- NOTE | 2019-01-01 09:19 | PN ---
Progress Note, Physician - Current Medication List Current Medications: Active Medications Albuterol Sulfate (Ventolin 0.083% Nebulizer Soln -) 1 amp NEB Q4H PRN PRN Reason: SHORT OF BREATH/WHEEZING Last Admin: 01/01/19 07:20 Dose: 1 amp Atorvastatin Calcium (Lipitor -) 10 mg PO HS [facility] Last Admin: 12/31/18 21:12 Dose: 10 mg Budesonide/Formoterol Fumarate (Symbicort 160/4.5mcg -) 2 puff IH BID [facility] Last Admin: 12/31/18 21:11 Dose: 2 puff Diphenoxylate HCl/Atropine (Lomotil -) 1 combo PO HS PRN PRN Reason: DIARRHEA Last Admin: 12/31/18 23:02 Dose: 1 combo Gabapentin (Neurontin -) 600 mg PO HS [facility] Last Admin: 12/31/18 21:12 Dose: 600 mg Glipizide (Glucotrol -) 5 mg PO TIDAC [facility] Last Admin: 01/01/19 06:06 Dose: 5 mg Heparin Sodium (Porcine) (Heparin -) 5,000 unit SQ BID [facility] Last Admin: 12/31/18 21:11 Dose: 5,000 unit Potassium Chloride/Sodium Chloride (Ns+20 Meq Kcl -) 20 meq in 1,000 mls @ 42 mls/hr IV ASDIR [facility] Last Admin: 12/31/18 14:06 Dose: 42 mls/hr Insulin Aspart (Novolog Vial Sliding Scale -) 1 vial SQ TIDAC [facility]; Protocol Last Admin: 01/01/19 06:05 Dose: Not Given Loperamide HCl (Imodium -) 2 mg PO Q4H PRN PRN Reason: DIARRHEA Last Admin: 12/30/18 20:22 Dose: 2 mg Non Formulary: (Invokana 300 Mg) 1 each PO DAILY [facility] Non-Formulary Med: Saxagliptin/Metformin2.5 Mg-1000 1 each PO BID [facility] Ondansetron HCl (Zofran Odt -) 8 mg SL Q12H PRN PRN Reason: NAUSEA AND/OR VOMITING Ondansetron HCl (Zofran -) 8 mg PO Q8H PRN PRN Reason: NAUSEA Pantoprazole Sodium (Protonix -) 40 mg PO DAILY [facility] Last Admin: 12/31/18 10:13 Dose: 40 mg Potassium Chloride (K-Dur -) 20 meq PO DAILY [facility] Ramipril (Altace -) 2.5 mg PO DAILY@2000 [facility] Last Admin: 12/31/18 21:12 Dose: 2.5 mg Sitagliptin Phosphate (Januvia -) 50 mg PO DAILY@0700 [facility] Last Admin: 01/01/19 06:06 Dose: 50 mg Tiotropium [place] (Spiriva Respimat) 2 puff IH DAILY [facility] Last Admin: 12/31/18 10:13 Dose: 2 puff - Objective Vital Signs: Vital Signs Temperature 98.6 F 01/01/19 08:24 Pulse Rate 116 H 01/01/19 08:24 Respiratory Rate 20 01/01/19 08:24 Blood Pressure 108/56 L 01/01/19 08:24 O2 Sat by Pulse Oximetry (%) 92 L 01/01/19 08:19 Eyes: Yes: WNL, Conjunctiva Clear, EOM Intact HENT: Yes: WNL, Atraumatic, Normocephalic Neck: Yes: WNL, Supple, Trachea Midline Cardiovascular: Yes: WNL, Regular Rate and Rhythm Respiratory: Yes: WNL, Regular, CTA Bilaterally Gastrointestinal: Yes: WNL, Normal Bowel Sounds Genitourinary: Yes: WNL Musculoskeletal: Yes: WNL Extremities: Yes: WNL Edema: No Integumentary: Yes: WNL Neurological: Yes: WNL, Alert, Oriented ...Motor Strength: WNL Psychiatric: Yes: WNL Labs: CBC, BMP 01/01/19 05:45 01/01/19 05:45 Assessment/Plan - Problems (1) Breast cancer Assessment/Plan: undergoing 2nd cycle chemotherapy. Still c/o shortness of breath on mild exertion. echo wnl Code(s): C50.919 - MALIGNANT NEOPLASM OF UNSP SITE OF UNSPECIFIED FEMALE BREAST (2) Dehydration Code(s): E86.0 - DEHYDRATION (3) Diabetes Assessment/Plan: On Januvia, Glucotrol, Insulin. On ACEI. Code(s): E11.9 - TYPE 2 DIABETES MELLITUS WITHOUT COMPLICATIONS (4) Dyspnea on exertion Assessment/Plan: Pt ggives hx of "mild COPD". For ECHO (undergoing 2nd cycle of chemotherapy). F/u TSH. Code(s): R06.09 - OTHER FORMS OF DYSPNEA (5) HTN (hypertension) Code(s): I10 - ESSENTIAL (PRIMARY) HYPERTENSION (6) Intractable diarrhea Code(s): R19.7 - DIARRHEA, UNSPECIFIED (7) Hypokalemia Assessment/Plan: replete K and Mg. Code(s): E87.6 - HYPOKALEMIA
[2019-01-01] MEDS ORDERED: PT OWN MED DRAWER 7, Y5N ONE (09:52)
[2019-01-01] MEDS ORDERED: POTASSIUM CHLORIDE TABS 20 MEQ TABLET.ER (FP) PO SCH (10:00)
[2019-01-01] MEDS: PANTOPRAZOLE 40 MG TABLET (FP) PO SCH (10:13)
[2019-01-01] MEDS: HEPARIN NA (PORCINE) 5,000 UNITS/ML 1ML VIAL SQ SCH (10:13)
[2019-01-01] MEDS: TIOTROPIUM BROMIDE 2.5 MCG (SPIRIVA) RESPIMAT INHALER IH SCH (10:14)
[2019-01-01] MEDS: BUDESONIDE/FORMETEROL FUMARATE 160/4.5 mcg INHALER IH SCH (10:14)
[2019-01-01 12:18] LABS: ANISOCYTOSIS 0; MACROCYTOSIS 0; PLATELET ESTIMATE NORMAL
== END 2019-01-01 11:39 | disposition home or self-care (01) | DRG 395 ==
LOC: JLAB 11:02 → JONCNONCHE 11:02 → EDSTATUS 11:58 → J7W 12:01 → JONCNONCHE 12:02 → J7W 13:43
PROVIDERS: ADMIT Internal Medicine; ATTEND Internal Medicine
DX: K52.1 Toxic gastroenteritis and colitis (principal); T45.1X5A Adverse effect of antineoplastic and immunosuppressive drugs, initial encounter; R06.00 Dyspnea, unspecified; E87.6 Hypokalemia; E11.9 Type 2 diabetes mellitus without complications; E04.1 Nontoxic single thyroid nodule; E78.5 Hyperlipidemia, unspecified; I10 Essential (primary) hypertension; E66.9 Obesity, unspecified; Z68.33 Body mass index [BMI] 33.0-33.9, adult; C50.911 Malignant neoplasm of unspecified site of right female breast; E86.0 Dehydration; R19.7 Diarrhea, unspecified; Z87.891 Personal history of nicotine dependence
CPT/HCPCS: 36415; 71046-TC-FY; 80048; 80053; 80061; 82962; 83721; 83735; 83880; 84443; 85025; 85027; 85379; 87040; 87086; 87177; 87209; 87324; 87449; 93306-TC; 94640; 94761; 96365; J1644; J7030

== ENCOUNTER 2019-01-05 14:02 | Day surgery (SDC) | payer OTHER, BC ==
[2019-01-05] MEDS ORDERED: MAGNESIUM SULF 50% (8.12 MEQ/2 ML-1 GM VIAL) IVPB ONE (14:45)
[2019-01-05] MEDS ORDERED: SODIUM CHLORIDE 500 ML IV ONE (14:45)
[2019-01-05] MEDS ORDERED: PORTA CATH FLUSH 10 ML IVPUSH ONE (16:54)
[2019-01-05 16:55] VITALS: BP 121/75; TEMP 97.3
[2019-01-05 16:56] VITALS: PULSE 92
== END 2019-01-05 16:10 | disposition home or self-care (01) ==
LOC: JONCNONCHE 14:02 → J7W 14:20 → JONCNONCHE 16:10
PROVIDERS: ATTEND Internal Medicine Hematology & Oncology
PROC: 3E0437Z Introduction of Electrolytic and Water Balance Substance into Central Vein, Percutaneous Approach (ICD-10-PCS; principal; 2019-01-05)
PROC: 3E043GC Introduction of Other Therapeutic Substance into Central Vein, Percutaneous Approach (ICD-10-PCS; 2019-01-05)
DX: C50.911 Malignant neoplasm of unspecified site of right female breast (principal); E86.0 Dehydration; E11.9 Type 2 diabetes mellitus without complications; Z76.89 Persons encountering health services in other specified circumstances
CPT/HCPCS: 96360; 96361; 96365

== ENCOUNTER 2019-01-12 07:14 | Day surgery (SDC) | payer OTHER, BC ==
[2019-01-12 09:59] LABS: BASO % 0.3 % (0-2.0); HEMATOCRIT 38.7 % (32.4-45.2); HEMOGLOBIN 12.9 GM/dL (10.7-15.3); LYMPH % 8.9 % (8-40); MCH 30.8 pg (25.7-33.7); MCHC 33.3 g/dl (32.0-36.0); MEAN CELL VOLUME 92.5 fl (80-96); MEAN PLT VOLUME 7.9 fl (7.5-11.1); MONO % 2.8 % (3.8-10.2); PLATELET COUNT 388 K/MM3 (134-434); RBC 4.18 M/mm3 (3.60-5.2); RDW 15.4 % (11.6-15.6); WHITE BLOOD COUNT 12.6 K/mm3 (4.0-10.0)
[2019-01-12] MEDS ORDERED: FAMOTIDINE 20 MG/50 ML IVPB 20 MG/50 ML MG IVPB ONE (10:00)
[2019-01-12] MEDS ORDERED: ACETAMINOPHEN 325 MG TABLET (FP) PO ONE (10:00)
[2019-01-12] MEDS ORDERED: DEXAMETHASONE SODIUM PHOSPHATE 10 MG, DIPHENHYDRAMINE 25 MG in SODIUM CHLORIDE 100 ML IVPB ONE (10:00)
[2019-01-12] MEDS ORDERED: PERTUZUMAB 420 MG in SODIUM CHLORIDE 250 ML IVPB ONE (10:30)
[2019-01-12 10:33] LABS: ALBUMIN 3.8 g/dl (3.4-5.0); BILIRUBIN,TOTAL 0.5 mg/dL (0.2-1); CALCIUM 9.6 mg/dL (8.5-10.1); CREATININE 0.6 mg/dL (0.55-1.3); MAGNESIUM 1.6 mg/dL (1.8-2.4); TOT PROT 7.2 g/dl (6.4-8.2)
[2019-01-12] MEDS ORDERED: SODIUM CHLORIDE IVPB ONE (11:00)
[2019-01-12] MEDS ORDERED: TRASTUZUMAB IVPB ONE (11:00)
[2019-01-12] MEDS ORDERED: SODIUM CHLORIDE 500 ML IV STA (11:22)
[2019-01-12] MEDS ORDERED: MAGNESIUM SULF 50% (8.12 MEQ/2 ML-1 GM VIAL) IVPB ONE (11:30)
[2019-01-12] MEDS ORDERED: PACLITAXEL 144 MG in SODIUM CHLORIDE 250 ML IVPB ONE (11:30)
[2019-01-12 15:47] VITALS: TEMP 97.4
[2019-01-12] MEDS ORDERED: PORTA CATH FLUSH 10 ML IVPUSH ONE (15:47)
[2019-01-12 16:29] VITALS: BP 125/64; PULSE 103
[2019-01-14] MEDS ORDERED: SODIUM CHLORIDE 500 ML IV STA (11:10)
[2019-01-14] MEDS ORDERED: MAGNESIUM SULF 50% (8.12 MEQ/2 ML-1 GM VIAL) IVPB ONE (11:10)
[2019-01-14] MEDS ORDERED: SODIUM CHLORIDE 600 ML IV STA (11:11)
== END 2019-01-12 16:00 | disposition home or self-care (01) ==
LOC: JONCCHEMO 07:14 → J7W 11:12 → JONCCHEMO 16:00
PROVIDERS: ATTEND Internal Medicine Hematology & Oncology
DX: Z51.11 Encounter for antineoplastic chemotherapy (principal); C50.911 Malignant neoplasm of unspecified site of right female breast; E11.9 Type 2 diabetes mellitus without complications
CPT/HCPCS: 36415; 80053; 82962; 83735; 85025; 96361; 96367; 96375; 96413; 96417; J7030; J9306; J9355

== ENCOUNTER 2019-01-14 11:22 | Day surgery (SDC) | payer OTHER, BC ==
[2019-01-14] MEDS ORDERED: SODIUM CHLORIDE 600 ML IV SCH (11:30)
[2019-01-14] MEDS ORDERED: MAGNESIUM SULF 50% (8.12 MEQ/2 ML-1 GM VIAL) IVPB ONE (12:15)
[2019-01-14 15:37] VITALS: BP 122/71; PULSE 93; TEMP 98.2
[2019-01-14] MEDS ORDERED: PORTA CATH FLUSH 10 ML IVPUSH ONE (15:37)
== END 2019-01-14 14:30 | disposition home or self-care (01) ==
LOC: JONCNONCHE 11:22 → J7W 11:22 → JONCNONCHE 14:30
PROVIDERS: ATTEND Internal Medicine Hematology & Oncology
PROC: 3E033GC Introduction of Other Therapeutic Substance into Peripheral Vein, Percutaneous Approach (ICD-10-PCS; principal; 2019-01-14)
PROC: 3E0337Z Introduction of Electrolytic and Water Balance Substance into Peripheral Vein, Percutaneous Approach (ICD-10-PCS; 2019-01-14)
DX: C50.911 Malignant neoplasm of unspecified site of right female breast (principal); Z76.89 Persons encountering health services in other specified circumstances; I10 Essential (primary) hypertension; E11.9 Type 2 diabetes mellitus without complications; E78.00 Pure hypercholesterolemia, unspecified; K21.9 Gastro-esophageal reflux disease without esophagitis
CPT/HCPCS: 96361; 96417; J7030

== ENCOUNTER 2019-01-19 07:12 | Day surgery (SDC) | payer OTHER, BC | END 2019-01-19 15:10 | disposition home or self-care (01) | LOC: JONCCHEMO 07:12 → J7W 11:21 → JONCCHEMO 15:10 ==

== ENCOUNTER 2019-01-21 07:13 | Day surgery (SDC) | payer OTHER, BC | END 2019-01-21 14:02 | disposition home or self-care (01) | LOC: JONCNONCHE 07:13 → J7W 10:08 → JONCNONCHE 14:02 ==

== ENCOUNTER 2019-01-24 09:00 | Day surgery (SDC) | payer OTHER, BC | END 2019-01-24 13:57 | disposition home or self-care (01) | LOC: JONCNONCHE 09:00 → J7W 09:01 → JONCNONCHE 13:57 ==

== ENCOUNTER 2019-01-26 07:05 | Day surgery (SDC) | payer OTHER, BC ==
[2019-01-26] MEDS ORDERED: ONDANSETRON 8 MG TABLET (FP) PO ONE (10:00)
[2019-01-26] MEDS ORDERED: DEXAMETHASONE SODIUM PHOSPHATE 10 MG, DIPHENHYDRAMINE 25 MG in SODIUM CHLORIDE 100 ML IVPB ONE (10:00)
[2019-01-26] MEDS ORDERED: FAMOTIDINE 20 MG/50 ML IVPB 20 MG/50 ML MG IVPB ONE (10:00)
[2019-01-26] MEDS ORDERED: PACLITAXEL 144 MG in SODIUM CHLORIDE 250 ML IVPB ONE (10:30)
[2019-01-26 11:57] LABS: BASO % 1.9 % (0-2.0); EOS % 4.4 % (0-4.5); HEMATOCRIT 37.7 % (32.4-45.2); HEMOGLOBIN 12.4 GM/dL (10.7-15.3); LYMPH % 30.8 % (8-40); MCH 30.7 pg (25.7-33.7); MEAN CELL VOLUME 93.1 fl (80-96); MEAN PLT VOLUME 8.7 fl (7.5-11.1); MONO % 7.5 % (3.8-10.2); NEUT % 55.4 % (42.8-82.8); PLATELET COUNT 255 K/MM3 (134-434); RBC 4.05 M/mm3 (3.60-5.2); RDW 16.3 % (11.6-15.6); WHITE BLOOD COUNT 4.5 K/mm3 (4.0-10.0)
[2019-01-26] MEDS ORDERED: SODIUM CHLORIDE 250 ML IV SCH (12:15)
[2019-01-26 14:49] LABS: CALCIUM 9.5 mg/dL (8.5-10.1); CREATININE 0.5 mg/dL (0.55-1.3); POTASSIUM 3.7 mmol/L (3.5-5.1)
[2019-01-26 14:50] LABS: ALBUMIN 3.8 g/dl (3.4-5.0); BILIRUBIN,DIRECT 0.2 mg/dL (0.0-0.2); BILIRUBIN,TOTAL 0.4 mg/dL (0.2-1); MAGNESIUM 1.4 mg/dL (1.8-2.4); TOT PROT 6.8 g/dl (6.4-8.2)
[2019-01-26] MEDS ORDERED: MAGNESIUM SULF 50% (8.12 MEQ/2 ML-1 GM VIAL) IVPB ONE (15:45)
[2019-01-26 16:57] VITALS: TEMP 97.8
[2019-01-26 17:01] VITALS: BP 110/70; PULSE 65
[2019-01-26] MEDS ORDERED: PORTA CATH FLUSH 10 ML IVPUSH ONE (17:01)
== END 2019-01-26 18:19 | disposition home or self-care (01) ==
LOC: JONCCHEMO 07:05 → JONCNONCHE 07:05 → J7W 12:22 → JONCCHEMO 18:19
PROVIDERS: ATTEND Internal Medicine Hematology & Oncology
PROC: 3E04305 Introduction of Other Antineoplastic into Central Vein, Percutaneous Approach (ICD-10-PCS; principal; 2019-01-26)
PROC: 3E043GC Introduction of Other Therapeutic Substance into Central Vein, Percutaneous Approach (ICD-10-PCS; 2019-01-26)
PROC: 3E0437Z Introduction of Electrolytic and Water Balance Substance into Central Vein, Percutaneous Approach (ICD-10-PCS; 2019-01-26)
DX: Z51.11 Encounter for antineoplastic chemotherapy (principal); C50.919 Malignant neoplasm of unspecified site of unspecified female breast; C77.3 Secondary and unspecified malignant neoplasm of axilla and upper limb lymph nodes
CPT/HCPCS: 36415; 80048; 80076; 83735; 85025; 96361; 96367; 96375; 96413; 96417; J7030

== ENCOUNTER 2019-01-28 06:19 | Day surgery (SDC) | payer OTHER, BC | END 2019-01-28 12:05 | disposition home or self-care (01) | LOC: JONCNONCHE 06:19 → J7W 09:04 → JONCNONCHE 12:05 ==

== ENCOUNTER 2019-02-02 06:59 | Day surgery (SDC) | payer OTHER, BC ==
[2019-02-02 09:07] LABS: BASO % 1.1 % (0-2.0); EOS % 2.8 % (0-4.5); HEMATOCRIT 40.3 % (32.4-45.2); HEMOGLOBIN 13.3 GM/dL (10.7-15.3); LYMPH % 26.1 % (8-40); MCH 31.2 pg (25.7-33.7); MCHC 32.9 g/dl (32.0-36.0); MEAN CELL VOLUME 94.7 fl (80-96); MEAN PLT VOLUME 8.8 fl (7.5-11.1); MONO % 8.2 % (3.8-10.2); NEUT % 61.8 % (42.8-82.8); PLATELET COUNT 245 K/MM3 (134-434); RBC 4.26 M/mm3 (3.60-5.2); RDW 16.7 % (11.6-15.6); WHITE BLOOD COUNT 5.7 K/mm3 (4.0-10.0)
[2019-02-02 09:29] LABS: ALBUMIN 3.9 g/dl (3.4-5.0); BILIRUBIN,TOTAL 0.4 mg/dL (0.2-1); CALCIUM 9.3 mg/dL (8.5-10.1); CREATININE 0.6 mg/dL (0.55-1.3); MAGNESIUM 1.6 mg/dL (1.8-2.4); POTASSIUM 3.4 mmol/L (3.5-5.1); TOT PROT 6.9 g/dl (6.4-8.2)
[2019-02-02] MEDS ORDERED: DEXAMETHASONE SOD PHOSPHATE 4 MG/1 ML VIAL IVPB ONE (09:47)
[2019-02-02] MEDS ORDERED: SODIUM CHLORIDE 500 ML IV STA (09:47)
[2019-02-02] MEDS ORDERED: MAGNESIUM SULFATE IN WATER 2 GM/50 ML IVPB IVPB ONE (09:49)
[2019-02-02] MEDS ORDERED: ACETAMINOPHEN 325 MG TABLET (FP) PO ONE (10:00)
[2019-02-02] MEDS ORDERED: ONDANSETRON 8 MG TABLET (FP) PO ONE (10:00)
[2019-02-02] MEDS ORDERED: DEXAMETHASONE IVPB ONE (10:00)
[2019-02-02] MEDS ORDERED: SODIUM CHLORIDE IVPB ONE ×2 (10:00→11:00)
[2019-02-02] MEDS ORDERED: FAMOTIDINE 20 MG/50 ML IVPB 20 MG/50 ML MG IVPB ONE (10:00)
[2019-02-02] MEDS ORDERED: DIPHENHYDRAMINE IVPB ONE (10:00)
[2019-02-02] MEDS ORDERED: PERTUZUMAB 420 MG in SODIUM CHLORIDE 250 ML IVPB ONE (10:30)
[2019-02-02] MEDS ORDERED: PT OWN MED DRAWER 7, Y5N ONE (10:52)
[2019-02-02] MEDS ORDERED: ONDANSETRON 4 MG TABLET PO ONE (10:56)
[2019-02-02] MEDS ORDERED: TRASTUZUMAB IVPB ONE (11:00)
[2019-02-02] MEDS ORDERED: PACLITAXEL 144 MG in SODIUM CHLORIDE 250 ML IVPB ONE (11:30)
[2019-02-02] MEDS: POTASSIUM CHLORIDE ORAL LIQUID 20 MEQ/15 ML PO ONE ×2 (12:16→12:31)
[2019-02-02 16:08] VITALS: BP 123/79; PULSE 99; TEMP 99
[2019-02-02] MEDS ORDERED: PORTA CATH FLUSH 10 ML IVPUSH ONE (16:49)
[2019-02-02] MEDS ORDERED: POTASSIUM CHLORIDE TABS 20 MEQ TABLET.ER (FP) PO ONE (17:00)
== END 2019-02-02 17:10 | disposition home or self-care (01) ==
LOC: JONCCHEMO 06:59 → J7W 09:19 → JONCCHEMO 17:10
PROVIDERS: ATTEND Internal Medicine Hematology & Oncology
DX: Z51.11 Encounter for antineoplastic chemotherapy (principal); C50.919 Malignant neoplasm of unspecified site of unspecified female breast; C77.3 Secondary and unspecified malignant neoplasm of axilla and upper limb lymph nodes
CPT/HCPCS: 36415; 80053; 83735; 85025; 87324; 87449; 96361; 96367; 96375; 96413; 96417; J1100; J7030; J9306; J9355

== ENCOUNTER 2019-02-04 08:43 | Day surgery (SDC) | payer OTHER, BC ==
[2019-02-04] MEDS ORDERED: SODIUM CHLORIDE 750 ML IV ONE (11:00)
[2019-02-04] MEDS ORDERED: PORTA CATH FLUSH 10 ML IVPUSH ONE (12:25)
[2019-02-04 15:53] VITALS: BP 134/89; PULSE 94
[2019-02-04 15:59] VITALS: TEMP 99.4
== END 2019-02-04 13:55 | disposition home or self-care (01) ==
LOC: JONCNONCHE 08:43 → J7W 10:06 → JONCNONCHE 13:55
PROVIDERS: ATTEND Internal Medicine Hematology & Oncology
PROC: 3E0437Z Introduction of Electrolytic and Water Balance Substance into Central Vein, Percutaneous Approach (ICD-10-PCS; principal; 2019-02-04)
DX: C50.919 Malignant neoplasm of unspecified site of unspecified female breast (principal); C77.3 Secondary and unspecified malignant neoplasm of axilla and upper limb lymph nodes
CPT/HCPCS: 96360; 96361; J7030

== ENCOUNTER 2019-02-07 07:08 | Day surgery (SDC) | payer OTHER, BC ==
[2019-02-07] MEDS ORDERED: SODIUM CHLORIDE 500 ML IV ONE (10:00)
[2019-02-07 15:35] VITALS: TEMP 99
[2019-02-07] MEDS ORDERED: PORTA CATH FLUSH 10 ML IVPUSH ONE (15:35)
[2019-02-07 15:37] VITALS: BP 100/72; PULSE 103
== END 2019-02-07 12:45 | disposition home or self-care (01) ==
LOC: JONCCHEMO 07:08 → J7W 10:09 → JONCCHEMO 12:45
PROVIDERS: ATTEND Internal Medicine Hematology & Oncology
PROC: 3E0437Z Introduction of Electrolytic and Water Balance Substance into Central Vein, Percutaneous Approach (ICD-10-PCS; principal; 2019-02-07)
DX: C50.919 Malignant neoplasm of unspecified site of unspecified female breast (principal); Z76.89 Persons encountering health services in other specified circumstances
CPT/HCPCS: 96360; 96361

== ENCOUNTER 2019-02-09 05:50 | Day surgery (SDC) | payer OTHER, BC ==
[2019-02-09] MEDS ORDERED: DEXAMETHASONE SODIUM PHOSPHATE 8 MG, DIPHENHYDRAMINE 25 MG in SODIUM CHLORIDE 100 ML IVPB ONE (09:00)
[2019-02-09] MEDS ORDERED: FAMOTIDINE 20 MG/50 ML IVPB 20 MG/50 ML MG IVPB ONE (09:00)
[2019-02-09] MEDS ORDERED: ONDANSETRON 8 MG TABLET (FP) PO ONE (09:00)
[2019-02-09] MEDS ORDERED: PACLITAXEL 144 MG in SODIUM CHLORIDE 250 ML IVPB ONE (09:30)
[2019-02-09] MEDS ORDERED: SODIUM CHLORIDE 500 ML IV SCH ×2 (10:15→10:16)
[2019-02-09 10:34] LABS: BASO % 1.3 % (0-2.0); EOS % 2.9 % (0-4.5); HEMATOCRIT 38.3 % (32.4-45.2); HEMOGLOBIN 12.7 GM/dL (10.7-15.3); LYMPH % 23.6 % (8-40); MCH 31.4 pg (25.7-33.7); MCHC 33.2 g/dl (32.0-36.0); MEAN CELL VOLUME 94.7 fl (80-96); MONO % 7.1 % (3.8-10.2); NEUT % 65.1 % (42.8-82.8); PLATELET COUNT 286 K/MM3 (134-434); RBC 4.04 M/mm3 (3.60-5.2); RDW 16.4 % (11.6-15.6); WHITE BLOOD COUNT 6.1 K/mm3 (4.0-10.0)
[2019-02-09 11:01] LABS: ALBUMIN 3.9 g/dl (3.4-5.0); BILIRUBIN,TOTAL 0.3 mg/dL (0.2-1); BLOOD UREA NITROGEN 7.5 mg/dL (7-18); CALCIUM 8.9 mg/dL (8.5-10.1); CREATININE 0.6 mg/dL (0.55-1.3); MAGNESIUM 1.4 mg/dL (1.8-2.4); POTASSIUM 3.8 mmol/L (3.5-5.1)
[2019-02-09] MEDS ORDERED: MAGNESIUM SULF 50% (8.12 MEQ/2 ML-1 GM VIAL) IVPB ONE (12:52)
[2019-02-09 17:27] VITALS: BP 132/74; PULSE 88; TEMP 97.5
[2019-02-09] MEDS ORDERED: PORTA CATH FLUSH 10 ML IVPUSH ONE (17:27)
== END 2019-02-09 16:30 | disposition home or self-care (01) ==
LOC: JONCNONCHE 05:50 → J7W 09:54 → JONCNONCHE 16:30
PROVIDERS: ATTEND Internal Medicine Hematology & Oncology
DX: Z51.11 Encounter for antineoplastic chemotherapy (principal); C50.919 Malignant neoplasm of unspecified site of unspecified female breast
CPT/HCPCS: 36415; 80053; 83735; 85025; 96361; 96367; 96375; 96413; 96417; J7030

== ENCOUNTER 2019-02-11 06:43 | Day surgery (SDC) | payer OTHER, BC | END 2019-02-11 12:50 | disposition home or self-care (01) | LOC: JONCNONCHE 06:43 → J7W 09:51 → JONCNONCHE 12:50 ==

== ENCOUNTER 2019-02-14 09:32 | Day surgery (SDC) | payer OTHER, BC | END 2019-02-14 13:05 | disposition home or self-care (01) | LOC: JONCNONCHE 09:32 → J7W 10:33 → JONCNONCHE 13:05 ==

== ENCOUNTER 2019-02-16 07:13 | Day surgery (SDC) | payer OTHER, BC ==
[2019-02-16] MEDS ORDERED: ONDANSETRON 8 MG TABLET (FP) PO ONE (09:00)
[2019-02-16] MEDS ORDERED: FAMOTIDINE 20 MG/50 ML IVPB 20 MG/50 ML MG IVPB ONE (09:00)
[2019-02-16] MEDS ORDERED: DEXAMETHASONE SODIUM PHOSPHATE 8 MG, DIPHENHYDRAMINE 25 MG in SODIUM CHLORIDE 100 ML IVPB ONE (09:00)
[2019-02-16] MEDS ORDERED: PACLITAXEL 144 MG in SODIUM CHLORIDE 250 ML IVPB ONE (09:30)
[2019-02-16 10:14] LABS: BASO % 2.2 % (0-2.0); HEMATOCRIT 37.4 % (32.4-45.2); HEMOGLOBIN 12.7 GM/dL (10.7-15.3); LYMPH % 29.3 % (8-40); MCH 31.8 pg (25.7-33.7); MCHC 34.1 g/dl (32.0-36.0); MEAN CELL VOLUME 93.4 fl (80-96); MEAN PLT VOLUME 8.2 fl (7.5-11.1); MONO % 8.2 % (3.8-10.2); NEUT % 56.3 % (42.8-82.8); PLATELET COUNT 303 K/MM3 (134-434); RBC 4.01 M/mm3 (3.60-5.2); RDW 15.8 % (11.6-15.6); WHITE BLOOD COUNT 4.9 K/mm3 (4.0-10.0)
[2019-02-16 10:59] LABS: ALBUMIN 3.9 g/dl (3.4-5.0); BILIRUBIN,DIRECT 0.1 mg/dL (0.0-0.2); BILIRUBIN,TOTAL 0.3 mg/dL (0.2-1); BLOOD UREA NITROGEN 13.1 mg/dL (7-18); CALCIUM 8.6 mg/dL (8.5-10.1); CREATININE 0.7 mg/dL (0.55-1.3); MAGNESIUM 1.3 mg/dL (1.8-2.4); POTASSIUM 3.7 mmol/L (3.5-5.1)
[2019-02-16] MEDS ORDERED: SODIUM CHLORIDE 250 ML IV STA (11:05)
[2019-02-16] MEDS ORDERED: MAGNESIUM SULF 50% (8.12 MEQ/2 ML-1 GM VIAL) IVPB ONE (12:01)
[2019-02-16] MEDS ORDERED: ONDANSETRON 4 MG TABLET PO ONE (12:15)
[2019-02-16 17:03] VITALS: PULSE 93; TEMP 97.2
[2019-02-16] MEDS ORDERED: PORTA CATH FLUSH 10 ML IVPUSH ONE (17:03)
[2019-02-16 17:04] VITALS: BP 127/71
== END 2019-02-16 16:10 | disposition home or self-care (01) ==
LOC: JONCCHEMO 07:13 → J7W 10:06 → JONCCHEMO 16:10
PROVIDERS: ATTEND Internal Medicine Hematology & Oncology
DX: Z51.11 Encounter for antineoplastic chemotherapy (principal); C50.919 Malignant neoplasm of unspecified site of unspecified female breast
CPT/HCPCS: 36415; 80048; 80076; 83735; 85025; 96361; 96367; 96375; 96413

== ENCOUNTER 2019-02-18 10:24 | Inpatient (IN) | payer OTHER, BC ==
[2019-02-18] MEDS ORDERED: SODIUM CHLORIDE 1,000 ML IV SCH ×2 (11:30→17:30)
[2019-02-18] MEDS ORDERED: PORTA CATH FLUSH 10 ML IVPUSH ONE (15:06)
--- NOTE | 2019-02-18 17:37 | CONSULT ---
Consult Consult Specialty:: internal Medicine Reason for Consultation:: Medical f/u/ Diarrhea - History of Present Illness Chief Complaint: Diarrhea History of Present Illness: Pt known to me from last admission. In summary 73 y/o patient with stage II breast cancer, ER-, [place]-, Her2-3+ on taxotere/carbo/ herceptin/perjeta comes in with diarrhea Last Chemo 2 days ago. Also had abd pain pt seen / examined chart reviewed awake/ comfortable eating food-- small amount - History Source History Provided By: Patient, Medical Record Limitations to Obtaining History: No Limitations - Past Medical History Cardio/Vascular: Yes: HTN, Hyperlipdemia Endocrine: Yes: Diabetes Mellitus - Alcohol/Substance Use Hx Alcohol Use: No - Smoking History Smoking history: Former smoker Have you smoked in the past 12 months: No If you are a former smoker, when did you quit?: 7 years Home Medications - Allergies Allergies/Adverse Reactions: Allergies Allergy/AdvReac Type Severity Reaction Status Date / Time Penicillins Allergy Intermediate Rash Verified 11/30/18 09:58 - Home Medications Home Medications: Ambulatory Orders Ascorbate Calcium [Vitamin C] 500 mg PO DAILY 01/28/17 Glipizide 5 mg PO TID 01/28/17 Levomefolate/B6/B12/Algal Oil [Metanx Capsule] 1 each PO DAILY 01/28/17 Multivit-Min/FA/Lycopen/Lutein [Centrum Silver Tablet] 1 tab PO DAILY 01/28/17 Naproxen Sodium [Aleve] 440 mg PO DAILY 01/28/17 Omeprazole 40 mg PO DAILY 01/28/17 Ramipril 2.5 mg PO HS 01/28/17 Saxagliptin HCl/Metformin HCl [Kombiglyze Xr 2.5-1,000 mg Tab] 1 tab PO BID Simvastatin 20 mg PO HS 01/28/17 Canagliflozin [Invokana] 300 mg PO DAILY 11/29/18 Gabapentin 600 mg PO HS 11/29/18 Tiotropium [place] [Spiriva] 1 inh PO DAILY 11/29/18 Albuterol Sulfate Inhaler - [Ventolin HFA Inhaler -] 1 puff PO PRN PRN 12/29/18 Loperamide HCl [Imodium -] 2 mg PO PRN PRN 12/29/18 Ondansetron HCl [Zofran] 8 mg PO PRN PRN 12/29/18 SYMBICORT 160/4.5mcg - 1 inh PO BID 12/29/18 Diphenoxylate 2.5/Atropine.025 [Lomotil -] 1 combo PO HS PRN #15 tablet MDD 1 Sitagliptin Phosphate [Januvia -] 50 mg PO DAILY@0700 tablet 01/01/19 Review of Systems - Review of Systems Constitutional: reports: No Symptoms, Loss of Appetite, Weakness Eyes: reports: No Symptoms HENT: reports: No Symptoms Neck: reports: No Symptoms Cardiovascular: reports: No Symptoms Respiratory: reports: No Symptoms Gastrointestinal: reports: Abdominal Pain, Diarrhea Genitourinary: reports: No Symptoms Neurological: reports: No Symptoms Hematology/Lymphatic: reports: No Symptoms Psychiatric: reports: No Symptoms Physical Exam Vital Signs: Vital Signs Temperature 97.9 F 02/18/19 10:51 Pulse Rate 105 H 02/18/19 10:51 Respiratory Rate 16 02/18/19 10:51 Blood Pressure 130/74 02/18/19 10:51 O2 Sat by Pulse Oximetry (%) Constitutional: Yes: No Distress, Calm. No: Obese Eyes: Yes: Conjunctiva Clear Neck: Yes: Supple Cardiovascular: Yes: Regular Rate and Rhythm Respiratory: Yes: CTA Bilaterally, Diminished (at bases) Gastrointestinal: Yes: Normal Bowel Sounds, Soft Edema: No Neurological: Yes: Alert Psychiatric: Yes: Alert Imaging - Results Cat Scan: Pending Problem List - Problems (1) Breast cancer Code(s): C50.919 - MALIGNANT NEOPLASM OF UNSP SITE OF UNSPECIFIED FEMALE BREAST (2) Dehydration Code(s): E86.0 - DEHYDRATION (3) Diabetes Code(s): E11.9 - TYPE 2 DIABETES MELLITUS WITHOUT COMPLICATIONS (4) HTN (hypertension) Code(s): I10 - ESSENTIAL (PRIMARY) HYPERTENSION (5) Intractable diarrhea Code(s): R19.7 - DIARRHEA, UNSPECIFIED Assessment/Plan Discussed with Dr. Conner. Mild hydration Abd exam benign Ct abdomen ordered Labs pending Diarrhea likely -Due to chemo Monitor bgm dvy prophylaxis will follow with you. Discussed with pt also.
[2019-02-18 17:42] LABS: BASO % 0.7 % (0-2.0); EOS % 0.8 % (0-4.5); HEMATOCRIT 39.5 % (32.4-45.2); LYMPH % 17.4 % (8-40); MCH 31.3 pg (25.7-33.7); MCHC 32.8 g/dl (32.0-36.0); MEAN CELL VOLUME 95.2 fl (80-96); MONO % 4.9 % (3.8-10.2); NEUT % 76.2 % (42.8-82.8); PLATELET COUNT 253 K/MM3 (134-434); RBC 4.15 M/mm3 (3.60-5.2); RDW 15.9 % (11.6-15.6); WHITE BLOOD COUNT 7.1 K/mm3 (4.0-10.0)
[2019-02-18 18:02] LABS: ALBUMIN 3.6 g/dl (3.4-5.0); BILIRUBIN,TOTAL 0.6 mg/dL (0.2-1); BLOOD UREA NITROGEN 6.5 mg/dL (7-18); CALCIUM 8.6 mg/dL (8.5-10.1); CREATININE 0.5 mg/dL (0.55-1.3); MAGNESIUM 1.7 mg/dL (1.8-2.4); POTASSIUM 3.6 mmol/L (3.5-5.1); TOT PROT 6.5 g/dl (6.4-8.2)
[2019-02-18] MEDS ORDERED: MAGNESIUM SULF 50% (8.12 MEQ/2 ML-1 GM VIAL) IVPB ONE (18:05)
--- NOTE | 2019-02-18 18:08 | HP ---
History and Physical History and Physical: 73 y/o patient with stage II breast cancer, ER-, [place]-, Her2-3+ on taxotere/ herceptin/perjeta --- then switched to taxol/herceptin/perjeta due to diarrhea - - C4 W3 of taxol on 02/16/19-- comes in with worsening diarrhea and RLQ abdominal pain Now with RLQ abdominal pain PMH DM hyperlipidema Last Vital Signs Temp Pulse Resp BP Pulse Ox 98.5 F 106 H 20 127/74 96 02/18/19 18:55 02/18/19 18:55 02/18/19 18:55 02/18/19 18:55 02/18/19 18:17 Cor: RSR, No murmurs, No gallops Lungs: Clear to P&A Abd: Soft, Normal bowel sounds, No organomegaly Ext:No significant edema Abnormal Lab Results 02/18/19 02/18/19 17:00 17:00 RDW 15.9 H BUN 6.5 L Creatinine 0.5 L Random Glucose 152 H Magnesium 1.7 L AST 11 L Active Medications Albuterol Sulfate (Ventolin Hfa Inhaler -) 2 puff IH Q6H PRN PRN Reason: SHORTNESS OF BREATH Atorvastatin Calcium (Lipitor -) 10 mg PO HS [facility] Budesonide/Formoterol Fumarate (Symbicort 160/4.5mcg -) 2 puff IH BID [facility] Gabapentin (Neurontin -) 600 mg PO HS [facility] Glipizide (Glucotrol -) 5 mg PO ACBK LUL Glipizide (Glucotrol -) 7.5 mg PO ACDIN [facility] Glipizide (Glucotrol -) 5 mg PO DAILY@2200 [facility] Sodium Chloride (Normal Saline -) 500 mls @ 60 mls/hr IV ASDIR [facility] Last Admin: 02/18/19 18:53 Dose: 60 mls/hr Metformin HCl (Glucophage -) 1,000 mg PO BID [facility] Pantoprazole Sodium (Protonix -) 40 mg PO DAILY [facility] Ramipril (Altace -) 2.5 mg PO DAILY [facility] Sitagliptin Phosphate (Januvia -) 100 mg PO DAILY@0700 [facility] Tiotropium [place] (Spiriva Respimat) 2 puff IH DAILY [facility] A/P 73 y/o patient with stage II breast cancer, ER-, [place]-, Her2-3+ on taxotere/ herceptin/perjeta --- then switched to taxol/herceptin/perjeta due to diarrhea - - C4 W3 of taxol on 02/16/19-- comes in with worsening diarrhea and RLQ abdominal pain Now with RLQ abdominal pain Secretory diarrhea due to chemotherapy check c.diff--negative 02/02 continue antidiarrheals Abdominal exam is benign check CT a/p GI consult gentle hydration continue home meds
[2019-02-18] MEDS ORDERED: ALBUTEROL SO4 8 GM HFA INHALER IH PRN (18:39)
[2019-02-18] MEDS: SODIUM CHLORIDE 1,000 ML IV SCH (18:53)
[2019-02-18] MEDS: glipiZIDE 5 MG TABLET (FP) PO SCH (21:45)
[2019-02-18] MEDS: BUDESONIDE/FORMETEROL FUMARATE 160/4.5 mcg INHALER IH SCH (21:57)
[2019-02-18] MEDS: ATORVASTATIN CA 10 MG TABLET (FP) PO SCH (21:57)
[2019-02-18] MEDS: GABAPENTIN 300 MG CAPSULE (FP) PO SCH (21:57)
[2019-02-18] MEDS ORDERED: metFORMIN HCL 500 MG TABLET (FP) PO SCH (22:00)
[2019-02-19] MEDS: glipiZIDE 5 MG TABLET (FP) PO SCH ×3 (06:57→21:50)
[2019-02-19 08:02] LABS: HEMATOCRIT 35.8 % (32.4-45.2); MCH 31.6 pg (25.7-33.7); MCHC 33.5 g/dl (32.0-36.0); MEAN CELL VOLUME 94.3 fl (80-96); MEAN PLT VOLUME 9.1 fl (7.5-11.1); MONO % 5.2 % (3.8-10.2); NEUT % 64.8 % (42.8-82.8); PLATELET COUNT 255 K/MM3 (134-434); RDW 15.9 % (11.6-15.6); WHITE BLOOD COUNT 5.1 K/mm3 (4.0-10.0)
[2019-02-19] MEDS ORDERED: LOPERAMIDE HCL 2 MG CAPSULE PO PRN (08:21)
[2019-02-19 08:24] LABS: ALBUMIN 3.5 g/dl (3.4-5.0); BILIRUBIN,TOTAL 0.6 mg/dL (0.2-1); BLOOD UREA NITROGEN 5.2 mg/dL (7-18); CALCIUM 8.7 mg/dL (8.5-10.1); CREATININE 0.5 mg/dL (0.55-1.3); MAGNESIUM 2.4 mg/dL (1.8-2.4); POTASSIUM 3.8 mmol/L (3.5-5.1); TOT PROT 6.2 g/dl (6.4-8.2)
--- NOTE | 2019-02-19 09:22 | CON.GI ---
Consult Consult Specialty:: GI Referred by:: Dr Ramirez Reason for Consultation:: diarrhea - History of Present Illness Chief Complaint: 73 y.o. woman on chemo for breast ca since November, reports that since chemo began she has been having diarrhea. Stools sometimes occur as often as every 1 to 2 hours, watery, small amounts. She has lost 35 lbs by her report. Diarrhea is worse after chemo infusion and improves over the weeks until the next infusion. She has taken Imodium and Lomotil without very much effect. She had a colonoscopy about 25 years ago and had a negative Cologuard test in October of this year. Her usual bowel habit had been one stool/day before she began chemotherapy. She did take antibiotics briefly after her chemo port was placed. She has been on a PPI for years for heartburn. She has been on metformin (Kombiglyze) for Type 2 diabetes. Her antineoplastic regimen includes Perjeta. History of Present Illness: see chief complaint - History Source History Provided By: Patient, Medical Record Limitations to Obtaining History: No Limitations - Past Medical History Cardio/Vascular: Yes: HTN, Hyperlipdemia Gastrointestinal: Yes: GERD Heme/Onc: Yes: Cancer, Current Chemotherapy Endocrine: Yes: Diabetes Mellitus - Past Surgical History Past Surgical History: Yes: Breast Biopsy - Alcohol/Substance Use Hx Alcohol Use: No - Smoking History Smoking history: Former smoker Have you smoked in the past 12 months: No If you are a former smoker, when did you quit?: 7 years Home Medications - Allergies Allergies/Adverse Reactions: Allergies Allergy/AdvReac Type Severity Reaction Status Date / Time Penicillins Allergy Intermediate Rash Verified 11/30/18 09:58 - Home Medications Home Medications: Ambulatory Orders Ascorbate Calcium [Vitamin C] 500 mg PO DAILY 01/28/17 Glipizide 5 mg PO TID 01/28/17 Levomefolate/B6/B12/Algal Oil [Metanx Capsule] 1 each PO DAILY 01/28/17 Multivit-Min/FA/Lycopen/Lutein [Centrum Silver Tablet] 1 tab PO DAILY 01/28/17 Naproxen Sodium [Aleve] 440 mg PO DAILY 01/28/17 Omeprazole 40 mg PO DAILY 01/28/17 Ramipril 2.5 mg PO HS 01/28/17 Saxagliptin HCl/Metformin HCl [Kombiglyze Xr 2.5-1,000 mg Tab] 1 tab PO BID Simvastatin 20 mg PO HS 01/28/17 Canagliflozin [Invokana] 300 mg PO DAILY 11/29/18 Gabapentin 600 mg PO HS 11/29/18 Tiotropium [place] [Spiriva] 1 inh PO DAILY 11/29/18 Albuterol Sulfate Inhaler - [Ventolin HFA Inhaler -] 1 puff PO PRN PRN 12/29/18 Loperamide HCl [Imodium -] 2 mg PO PRN PRN 12/29/18 Ondansetron HCl [Zofran] 8 mg PO PRN PRN 12/29/18 SYMBICORT 160/4.5mcg - 1 inh PO BID 12/29/18 Diphenoxylate 2.5/Atropine.025 [Lomotil -] 1 combo PO HS PRN #15 tablet MDD 1 Sitagliptin Phosphate [Januvia -] 50 mg PO DAILY@0700 tablet 01/01/19 Physical Exam-GI Vital Signs: Vital Signs Temperature 98.7 F 02/19/19 05:49 Pulse Rate 89 02/19/19 05:49 Respiratory Rate 20 02/19/19 05:49 Blood Pressure 113/86 02/19/19 05:49 O2 Sat by Pulse Oximetry (%) 97 02/18/19 21:00 ...Rectal Exam: Yes: Deferred Labs: CBC, BMP 02/19/19 06:40 02/19/19 06:40 Imaging - Results Cat Scan: Image Reviewed (Appears negative to me, no official reading yet.) Problem List - Problems (1) Intractable diarrhea Code(s): R19.7 - DIARRHEA, UNSPECIFIED Assessment/Plan Diarrhea. Roughly 2/3 of persons on Perjeta will develop diarrhea, and for 1 in 12 it is severe. The timing of her diarrhea makes it extremely likely that her immunotherapy is the cause of her diarrhea. This, of course, limits our options. The goal will be to minimize other possible contribitors to diarrhea and see whether we can control her diarrhea during the most severe episodes. Plan: 1) check for C. difficile (already ordered), enteric infections. 2) discontinue PPI. A PPI renders her more susceptible to enteric infections, particularly C. difficile. 3) hold metformin, which contributes to diarrhea. 4) trial of codeine 30 mg q6h prn, which may well be more effective than Imodium /Lomotil. 5) Consideration could also be given to Viberzi, indicated for treatment of IBS with diarrhea. The problem with Viberzi is that there have been some very serious side effects with its use: pancreatitis, bowel perforation -- and this would be an off-label use. I personally would hesitate to prescribe it off- label unless it were the only way to continue her immunotherapy, and even then, Ms Mayer would need to be aware of the possible consequences of the drug. It is also unlikely that her insurer would pay for this off-label indication. Thank you for this referral.
[2019-02-19] MEDS: TIOTROPIUM BROMIDE 2.5 MCG (SPIRIVA) RESPIMAT INHALER IH SCH (09:36)
[2019-02-19] MEDS: RAMIPRIL 2.5 MG CAPSULE (FP) PO SCH (09:40)
[2019-02-19] MEDS: ENOXAPARIN NA (PORCINE) 40 MG/0.4 ML DISP.SYRIN SQ SCH (09:40)
[2019-02-19] MEDS: BUDESONIDE/FORMETEROL FUMARATE 160/4.5 mcg INHALER IH SCH ×2 (09:41→21:53)
[2019-02-19] MEDS ORDERED: PANTOPRAZOLE 40 MG TABLET (FP) PO SCH (10:00)
[2019-02-19] MEDS: CODEINE SO4 30 MG TABLET PO PRN (10:18)
--- NOTE | 2019-02-19 10:37 | PN ---
Progress Note (short form) - Note Progress Note: had 3 loose bm so far no abd pain Vital Signs - 24 hr 02/18/19 02/18/19 02/18/19 10:51 18:17 18:55 Temperature 97.9 F 98.5 F Pulse Rate 105 H 106 H Respiratory 16 20 Rate Blood Pressure 130/74 127/74 O2 Sat by Pulse 96 Oximetry (%) 02/18/19 02/18/19 02/19/19 21:00 21:48 01:25 Temperature 98.3 F 98.0 F Pulse Rate 96 H 84 Respiratory 18 18 Rate Blood Pressure 122/76 115/62 O2 Sat by Pulse 97 Oximetry (%) 02/19/19 05:49 Temperature 98.7 F Pulse Rate 89 Respiratory 20 Rate Blood Pressure 113/86 O2 Sat by Pulse Oximetry (%) Current Medications Generic Name Dose Route Start Last Admin Trade Name Freq PRN Reason Stop Dose Admin Albuterol Sulfate 2 puff 02/18/19 18:39 Ventolin Hfa Inhaler - IH Q6H PRN SHORTNESS OF BREATH Atorvastatin Calcium 10 mg 02/18/19 22:00 02/18/19 21:57 Lipitor - PO 10 mg HS [facility] Administration Budesonide/Formoterol Fumarate 2 puff 02/18/19 22:00 02/19/19 09:41 Symbicort 160/4.5mcg - IH 2 puff BID [facility] Administration Codeine Sulfate 30 mg 02/19/19 09:12 02/19/19 10:18 Codeine Sulfate - PO 30 mg Q6H PRN Administration DIARRHEA Enoxaparin Sodium 40 mg 02/19/19 10:00 02/19/19 09:40 Lovenox - SQ 40 mg DAILY [facility] Administration Gabapentin 600 mg 02/18/19 22:00 02/18/19 21:57 Neurontin - PO 600 mg HS [facility] Administration Glipizide 5 mg 02/19/19 07:00 02/19/19 06:57 Glucotrol - PO Not Given ACBK L[facility] Glipizide 7.5 mg 02/19/19 16:30 Glucotrol - PO ACDIN LUL Glipizide 5 mg 02/18/19 22:00 02/18/19 21:45 Glucotrol - PO Not Given DAILY@2200 [facility] Sodium Chloride 500 mls @ 60 mls/hr 02/18/19 17:28 02/18/19 18:53 Normal Saline - IV 60 mls/hr ASDIR [facility] Administration Ramipril 2.5 mg 02/19/19 10:00 02/19/19 09:40 Altace - PO 2.5 mg DAILY [facility] Administration Sitagliptin Phosphate 100 mg 02/19/19 07:00 02/19/19 06:57 Januvia - PO 100 mg DAILY@0700 [facility] Administration Tiotropium [place] 2 puff 02/19/19 10:00 02/19/19 09:36 Spiriva Respimat IH 2 puff DAILY [facility] Administration Laboratory Results - last 24 hr 02/18/19 02/18/19 02/18/19 17:00 17:00 17:00 WBC 7.1 RBC 4.15 Hgb 13.0 Hct 39.5 MCV 95.2 MCH 31.3 MCHC 32.8 RDW 15.9 H Plt Count 253 MPV 9.0 Absolute Neuts (auto) 5.5 Neutrophils % 76.2 D Lymphocytes % 17.4 D Monocytes % 4.9 Eosinophils % 0.8 Basophils % 0.7 Nucleated RBC % 0 Sodium 137 Potassium 3.6 Chloride 106 Carbon Dioxide 23 Anion Gap 8 BUN 6.5 L Creatinine 0.5 L Est GFR (CKD-EPI)AfAm 112.07 Est GFR (CKD-EPI)NonAf 96.69 POC Glucometer Random Glucose 152 H Lactic Acid 1.3 Calcium 8.6 Magnesium 1.7 L Total Bilirubin 0.6 AST 11 L ALT 23 Alkaline Phosphatase 74 Total Protein 6.5 Albumin 3.6 02/18/19 02/19/19 02/19/19 21:42 06:40 06:40 WBC 5.1 RBC 3.80 Hgb 12.0 Hct 35.8 MCV 94.3 MCH 31.6 MCHC 33.5 RDW 15.9 H Plt Count 255 MPV 9.1 Absolute Neuts (auto) 3.3 Neutrophils % 64.8 Lymphocytes % 27.0 D Monocytes % 5.2 Eosinophils % 2.0 D Basophils % 1.0 Nucleated RBC % 0 Sodium 138 Potassium 3.8 Chloride 105 Carbon Dioxide 25 Anion Gap 8 BUN 5.2 L Creatinine 0.5 L Est GFR (CKD-EPI)AfAm 112.07 Est GFR (CKD-EPI)NonAf 96.69 POC Glucometer 147 Random Glucose 126 H Lactic Acid Calcium 8.7 Magnesium 2.4 Total Bilirubin 0.6 AST 16 ALT 25 Alkaline Phosphatase 70 Total Protein 6.2 L Albumin 3.5 02/19/19 06:54 WBC RBC Hgb Hct MCV MCH MCHC RDW Plt Count MPV Absolute Neuts (auto) Neutrophils % Lymphocytes % Monocytes % Eosinophils % Basophils % Nucleated RBC % Sodium Potassium Chloride Carbon Dioxide Anion Gap BUN Creatinine Est GFR (CKD-EPI)AfAm Est GFR (CKD-EPI)NonAf POC Glucometer 134 Random Glucose Lactic Acid Calcium Magnesium Total Bilirubin AST ALT Alkaline Phosphatase Total Protein Albumin S1 S2 RRR Lungs clear Abd- soft , tender rt lower quadrant No edema PLAN CT abd done GI eval noted-- spoke with GI continue with meds received codeine stool studies pending Problem List - Problems (1) Breast cancer Code(s): C50.919 - MALIGNANT NEOPLASM OF UNSP SITE OF UNSPECIFIED FEMALE BREAST (2) Dehydration Code(s): E86.0 - DEHYDRATION (3) Diabetes Code(s): E11.9 - TYPE 2 DIABETES MELLITUS WITHOUT COMPLICATIONS (4) HTN (hypertension) Code(s): I10 - ESSENTIAL (PRIMARY) HYPERTENSION (5) Hypokalemia Code(s): E87.6 - HYPOKALEMIA (6) Intractable diarrhea Code(s): R19.7 - DIARRHEA, UNSPECIFIED
[2019-02-19] MEDS: SODIUM CHLORIDE 1,000 ML IV SCH ×2 (13:31→21:50)
--- NOTE | 2019-02-19 13:56 | PN ---
Progress Note (short form) - Note Progress Note: Seen in follow up. Reports no bowel movements since this morning, after taking codeine Inpatient Meds reviewed. Current Medications Albuterol Sulfate (Ventolin Hfa Inhaler -) 2 puff IH Q6H PRN PRN Reason: SHORTNESS OF BREATH Atorvastatin Calcium (Lipitor -) 10 mg PO HS [facility] Last Admin: 02/18/19 21:57 Dose: 10 mg Budesonide/Formoterol Fumarate (Symbicort 160/4.5mcg -) 2 puff IH BID [facility] Last Admin: 02/19/19 09:41 Dose: 2 puff Codeine Sulfate (Codeine Sulfate -) 30 mg PO Q6H PRN PRN Reason: DIARRHEA Last Admin: 02/19/19 10:18 Dose: 30 mg Enoxaparin Sodium (Lovenox -) 40 mg SQ DAILY [facility] Last Admin: 02/19/19 09:40 Dose: 40 mg Gabapentin (Neurontin -) 600 mg PO HS [facility] Last Admin: 02/18/19 21:57 Dose: 600 mg Glipizide (Glucotrol -) 5 mg PO ACBK [facility] Last Admin: 02/19/19 06:57 Dose: Not Given Glipizide (Glucotrol -) 7.5 mg PO ACDIN [facility] Glipizide (Glucotrol -) 5 mg PO DAILY@2200 [facility] Last Admin: 02/18/19 21:45 Dose: Not Given Sodium Chloride (Normal Saline -) 500 mls @ 60 mls/hr IV ASDIR [facility] Last Admin: 02/19/19 13:31 Dose: 60 mls/hr Ramipril (Altace -) 2.5 mg PO DAILY [facility] Last Admin: 02/19/19 09:40 Dose: 2.5 mg Sitagliptin Phosphate (Januvia -) 100 mg PO DAILY@0700 [facility] Last Admin: 02/19/19 06:57 Dose: 100 mg Tiotropium [place] (Spiriva Respimat) 2 puff IH DAILY [facility] Last Admin: 02/19/19 09:36 Dose: 2 puff On Examination: Last Vital Signs Temp Pulse Resp BP Pulse Ox 97.9 F 95 H 18 143/89 100 02/19/19 10:49 02/19/19 10:49 02/19/19 10:49 02/19/19 10:49 02/19/19 10:49 General: In no acute distress, ambulating in her room.. Extremities: No pallor or icterus. No pedal edema. . CVS: S1, S2, regular, no gallop or murmur. Chest: clear Abdomen: soft, non-distended Neuro: Alert, oriented, non-focal. Labs: CBC, BMP 02/19/19 06:40 02/19/19 06:40 Assessment. Locally advanced breast cancer, responding to treatment (Perjeta/Herceptin/Taxol ) but at expense of chronic diarrhea atributed to the Perjeta. Appreciate input of Dr Reynolds, GI - appears to have responded for now to trial of an opioid. Ongoing evaluation. Unclear whether this is a feasible long-term solution. Will continue to follow up on investigations ordered by GI and other GI recommendations.
[2019-02-19 16:27] VITALS: BMI 32.8
[2019-02-19] MEDS: GABAPENTIN 300 MG CAPSULE (FP) PO SCH (21:51)
[2019-02-19] MEDS: ATORVASTATIN CA 10 MG TABLET (FP) PO SCH (21:51)
[2019-02-20] MEDS: glipiZIDE 5 MG TABLET (FP) PO SCH ×3 (06:26→22:33)
[2019-02-20] MEDS: BUDESONIDE/FORMETEROL FUMARATE 160/4.5 mcg INHALER IH SCH ×2 (09:48→22:34)
[2019-02-20] MEDS: ENOXAPARIN NA (PORCINE) 40 MG/0.4 ML DISP.SYRIN SQ SCH (09:48)
[2019-02-20] MEDS: RAMIPRIL 2.5 MG CAPSULE (FP) PO SCH (09:48)
[2019-02-20] MEDS: TIOTROPIUM BROMIDE 2.5 MCG (SPIRIVA) RESPIMAT INHALER IH SCH (09:48)
[2019-02-20] MEDS: ACETAMINOPHEN 325 MG TABLET (FP) PO PRN (10:33)
--- NOTE | 2019-02-20 11:00 | PN ---
Progress Note (short form) - Note Progress Note: no bm so far feeling better except for bloating Vital Signs - 24 hr 02/19/19 02/19/19 02/20/19 20:39 21:00 00:00 Temperature 98.6 F 98.4 F Pulse Rate 91 H 89 Respiratory 18 18 18 Rate Blood Pressure 138/66 128/74 O2 Sat by Pulse 100 Oximetry (%) 02/20/19 02/20/19 02/20/19 02:00 06:00 09:00 Temperature 98.3 F Pulse Rate 84 Respiratory 18 18 Rate Blood Pressure 123/66 O2 Sat by Pulse 100 95 Oximetry (%) Current Medications Generic Name Dose Route Start Last Admin Trade Name Freq PRN Reason Stop Dose Admin Acetaminophen 650 mg 02/20/19 10:09 02/20/19 10:33 Tylenol - PO 650 mg Q6H PRN Administration MODERATE PAIN Albuterol Sulfate 2 puff 02/18/19 18:39 Ventolin Hfa Inhaler - IH Q6H PRN SHORTNESS OF BREATH Atorvastatin Calcium 10 mg 02/18/19 22:00 02/19/19 21:51 Lipitor - PO 10 mg HS LUL Administration Budesonide/Formoterol Fumarate 2 puff 02/18/19 22:00 02/20/19 09:48 Symbicort 160/4.5mcg - IH 2 puff BID [facility]UL Administration Codeine Sulfate 30 mg 02/19/19 09:12 02/20/19 18:59 Codeine Sulfate - PO 30 mg Q6H PRN Administration DIARRHEA Enoxaparin Sodium 40 mg 02/19/19 10:00 02/20/19 09:48 Lovenox - SQ 40 mg DAILY [facility] Administration Gabapentin 600 mg 02/18/19 22:00 02/19/19 21:51 Neurontin - PO 600 mg HS LUL Administration Glipizide 5 mg 02/19/19 07:00 02/20/19 06:26 Glucotrol - PO 5 mg ACBK LUL Administration Glipizide 7.5 mg 02/19/19 16:30 02/20/19 17:07 Glucotrol - PO 7.5 mg ACDIN LUL Administration Glipizide 5 mg 02/18/19 22:00 02/19/19 21:50 Glucotrol - PO Not Given DAILY@2200 L[facility] Sodium Chloride 500 mls @ 60 mls/hr 02/18/19 17:28 02/20/19 19:02 Normal Saline - IV Not Given ASDIR LUL Ramipril 2.5 mg 02/19/19 10:00 02/20/19 09:48 Altace - PO 2.5 mg DAILY LUL Administration Sitagliptin Phosphate 100 mg 02/19/19 07:00 02/20/19 06:26 Januvia - PO 100 mg DAILY@0700 LUL Administration Tiotropium [place] 2 puff 02/19/19 10:00 02/20/19 09:48 Spiriva Respimat IH 2 puff DAILY LUL Administration Laboratory Results - last 24 hr 02/20/19 06:24 POC Glucometer 125 S1 S2 RRR Lungs clear Abd- soft , ND, BS+ no edema No edema PLAN CT abd done-- results -->thickening in ascending colon-- GI to follow up continue with meds received codeine stool studies - cdiff negative Problem List - Problems (1) Breast cancer Code(s): C50.919 - MALIGNANT NEOPLASM OF UNSP SITE OF UNSPECIFIED FEMALE BREAST (2) Dehydration Code(s): E86.0 - DEHYDRATION (3) Diabetes Code(s): E11.9 - TYPE 2 DIABETES MELLITUS WITHOUT COMPLICATIONS (4) HTN (hypertension) Code(s): I10 - ESSENTIAL (PRIMARY) HYPERTENSION (5) Hypokalemia Code(s): E87.6 - HYPOKALEMIA (6) Intractable diarrhea Code(s): R19.7 - DIARRHEA, UNSPECIFIED
[2019-02-20] MEDS: CODEINE SO4 30 MG TABLET PO PRN ×2 (12:27→18:59)
--- NOTE | 2019-02-20 14:00 | PN ---
Progress Note (short form) - Note Progress Note: Seen in follow up. Reports a bowel movements this morning, first one after taking codeine yesterday morning. Mild abdominal discomfort. Inpatient Meds reviewed. Current Medications Acetaminophen (Tylenol -) 650 mg PO Q6H PRN PRN Reason: MODERATE PAIN Last Admin: 02/20/19 10:33 Dose: 650 mg Albuterol Sulfate (Ventolin Hfa Inhaler -) 2 puff IH Q6H PRN PRN Reason: SHORTNESS OF BREATH Atorvastatin Calcium (Lipitor -) 10 mg PO HS [facility] Last Admin: 02/19/19 21:51 Dose: 10 mg Budesonide/Formoterol Fumarate (Symbicort 160/4.5mcg -) 2 puff IH BID [facility] Last Admin: 02/20/19 09:48 Dose: 2 puff Codeine Sulfate (Codeine Sulfate -) 30 mg PO Q6H PRN PRN Reason: DIARRHEA Last Admin: 02/20/19 12:27 Dose: 30 mg Enoxaparin Sodium (Lovenox -) 40 mg SQ DAILY [facility] Last Admin: 02/20/19 09:48 Dose: 40 mg Gabapentin (Neurontin -) 600 mg PO HS [facility] Last Admin: 02/19/19 21:51 Dose: 600 mg Glipizide (Glucotrol -) 5 mg PO ACBK [facility] Last Admin: 02/20/19 06:26 Dose: 5 mg Glipizide (Glucotrol -) 7.5 mg PO ACDIN [facility] Last Admin: 02/19/19 16:20 Dose: 7.5 mg Glipizide (Glucotrol -) 5 mg PO DAILY@2200 [facility] Last Admin: 02/19/19 21:50 Dose: Not Given Sodium Chloride (Normal Saline -) 500 mls @ 60 mls/hr IV ASDIR [facility] Last Admin: 02/19/19 21:50 Dose: 60 mls/hr Ramipril (Altace -) 2.5 mg PO DAILY [facility] Last Admin: 02/20/19 09:48 Dose: 2.5 mg Sitagliptin Phosphate (Januvia -) 100 mg PO DAILY@0700 [facility] Last Admin: 02/20/19 06:26 Dose: 100 mg Tiotropium [place] (Spiriva Respimat) 2 puff IH DAILY [facility] Last Admin: 06/23/19 09:48 Dose: 2 puff On Examination: Last Vital Signs Temp Pulse Resp BP Pulse Ox 98.4 F 95 H 18 122/69 95 02/20/19 10:00 02/20/19 10:00 02/20/19 10:00 02/20/19 10:00 02/20/19 09:00 General: In no acute distress, ambulating in her room.. Extremities: No pallor or icterus. No pedal edema. . CVS: S1, S2, regular, no gallop or murmur. Chest: clear Abdomen: soft, non-distended Neuro: Alert, oriented, non-focal. Labs (yesterday): CBC, BMP 02/19/19 06:40 02/19/19 06:40 Assessment. Locally advanced breast cancer, responding to treatment (Perjeta/Herceptin/Taxol ) but at expense of chronic diarrhea attributed to the Perjeta. Appreciate input of Dr Reynolds, GI - appears to have responded for now to trial of an opioid. CT scan reports thickening ascending colon - uncertain significance - will await review GI, whether colonoscopy warranted. Possibly consider whether feasible to stop further neoadjuvant therapy and proceed straight to surgery, in light of excellent clinical response thus far - will be discussed with Dr Conner.
[2019-02-20] MEDS: SODIUM CHLORIDE 1,000 ML IV SCH (19:02)
[2019-02-20] MEDS: GABAPENTIN 300 MG CAPSULE (FP) PO SCH (22:33)
[2019-02-20] MEDS: ATORVASTATIN CA 10 MG TABLET (FP) PO SCH (22:33)
[2019-02-21] MEDS: glipiZIDE 5 MG TABLET (FP) PO SCH ×3 (06:21→22:15)
[2019-02-21] MEDS: ACETAMINOPHEN 325 MG TABLET (FP) PO PRN (09:23)
[2019-02-21] MEDS: RAMIPRIL 2.5 MG CAPSULE (FP) PO SCH (09:24)
[2019-02-21] MEDS: CODEINE SO4 30 MG TABLET PO PRN ×2 (09:24→13:48)
[2019-02-21] MEDS: ENOXAPARIN NA (PORCINE) 40 MG/0.4 ML DISP.SYRIN SQ SCH (09:25)
[2019-02-21] MEDS: BUDESONIDE/FORMETEROL FUMARATE 160/4.5 mcg INHALER IH SCH ×2 (09:26→22:15)
[2019-02-21] MEDS: TIOTROPIUM BROMIDE 2.5 MCG (SPIRIVA) RESPIMAT INHALER IH SCH (09:27)
--- NOTE | 2019-02-21 11:27 | PN ---
Progress Note (short form) - Note Progress Note: pt seen/ examined chart reviewed feels better Diarrhea better Vital Signs Temp 97.6 F 02/21/19 05:39 Pulse 83 02/21/19 05:39 Resp 18 02/21/19 05:39 BP 120/75 02/21/19 05:39 Pulse Ox 97 02/20/19 21:00 Intake & Output 02/20/19 02/20/19 02/21/19 11:59 23:59 11:59 Intake Total 420 720 570 Balance 420 720 570 Intake: IV 420 720 420 Normal Saline - 1,000 ml 420 720 420 @ 60 mls/hr IV ASDIR [facility] Rx#:[id number] Oral 150 Other: Voiding Method Toilet Toilet Toilet Bowel Movement Yes: 2 Yes Active Medications Acetaminophen (Tylenol -) 650 mg PO Q6H PRN PRN Reason: MODERATE PAIN Last Admin: 02/21/19 09:23 Dose: 650 mg Albuterol Sulfate (Ventolin Hfa Inhaler -) 2 puff IH Q6H PRN PRN Reason: SHORTNESS OF BREATH Atorvastatin Calcium (Lipitor -) 10 mg PO HS [facility] Last Admin: 02/20/19 22:33 Dose: 10 mg Budesonide/Formoterol Fumarate (Symbicort 160/4.5mcg -) 2 puff IH BID [facility] Last Admin: 02/21/19 09:26 Dose: 2 puff Codeine Sulfate (Codeine Sulfate -) 30 mg PO Q6H PRN PRN Reason: DIARRHEA Last Admin: 02/21/19 09:24 Dose: 30 mg Enoxaparin Sodium (Lovenox -) 40 mg SQ DAILY [facility] Last Admin: 02/21/19 09:25 Dose: 40 mg Gabapentin (Neurontin -) 600 mg PO HS [facility] Last Admin: 02/20/19 22:33 Dose: 600 mg Glipizide (Glucotrol -) 5 mg PO ACBK [facility] Last Admin: 02/21/19 06:21 Dose: 5 mg Glipizide (Glucotrol -) 7.5 mg PO ACDIN [facility] Last Admin: 02/20/19 17:07 Dose: 7.5 mg Glipizide (Glucotrol -) 5 mg PO DAILY@2200 [facility] Last Admin: 02/20/19 22:33 Dose: Not Given Sodium Chloride (Normal Saline -) 500 mls @ 60 mls/hr IV ASDIR [facility] Last Admin: 02/20/19 19:02 Dose: Not Given Ramipril (Altace -) 2.5 mg PO DAILY [facility] Last Admin: 02/21/19 09:24 Dose: 2.5 mg Sitagliptin Phosphate (Januvia -) 100 mg PO DAILY@0700 [facility] Last Admin: 02/21/19 06:20 Dose: 100 mg Tiotropium [place] (Spiriva Respimat) 2 puff IH DAILY [facility] Last Admin: 02/21/19 09:27 Dose: 2 puff CBC, BMP 02/19/19 06:40 02/19/19 06:40 Physical S1 S2 RRR Lungs clear Abd- soft , ND, BS+ no edema PLAN Better CT abd done-- results -->thickening in ascending colon-- GI to follow up continue with meds feels better with Codeine stool studies - cdiff negative. Oncology to follow I also agree- Diarrhea likely due to chemo Will follow. Problem List - Problems (1) Breast cancer Code(s): C50.919 - MALIGNANT NEOPLASM OF UNSP SITE OF UNSPECIFIED FEMALE BREAST (2) Dehydration Code(s): E86.0 - DEHYDRATION (3) Diabetes Code(s): E11.9 - TYPE 2 DIABETES MELLITUS WITHOUT COMPLICATIONS (4) HTN (hypertension) Code(s): I10 - ESSENTIAL (PRIMARY) HYPERTENSION (5) Intractable diarrhea Code(s): R19.7 - DIARRHEA, UNSPECIFIED
--- NOTE | 2019-02-21 12:32 | RAPID ---
Physical Examination Vital Signs: Vital Signs Temperature 97.6 F 02/21/19 10:00 Pulse Rate 84 02/21/19 10:00 Respiratory Rate 18 02/21/19 10:00 Blood Pressure 114/71 02/21/19 10:00 O2 Sat by Pulse Oximetry (%) 98 02/21/19 09:00 Findings/Remarks: Patient was walking when she felt her leg buckle underneath and she fell. Patient denies hitting her head. Patient denies losing consciousness. V:144/77 92 PE: head: autraumatic, heart: RRR Lungs: CTAL, extremities: no bruising, full ROM, Neuro: C II-XII intact Plan: - fall protocol initiated - head CT ordered - PCP notified Labs: CBC, BMP 02/19/19 06:40 02/19/19 06:40
--- NOTE | 2019-02-21 13:58 | PN ---
Progress Note (short form) - Note Progress Note: Brief GI note - patient assessed while rolling to elevator for HCT Had an unwitnessed fall just prior to assessment She reports improvement with codeine instead of imodium She reports one week of RLQ pain NO rectal bleeding Last colonoscopy in her [address] Sanderson did a cologuard within the last six months that was negative Vital Signs Temp 97.7 F 02/21/19 13:45 Pulse 88 02/21/19 13:45 Resp 18 02/21/19 13:45 BP 126/80 02/21/19 13:45 Pulse Ox 98 02/21/19 09:00 NAD Unable to examine as on stretcher going to elevator CBC, BMP 02/19/19 06:40 02/19/19 06:40 CT report reviewed, with ascending colon thickening Impression: Abnormal CT A/P - GI service will follow up tomorrow. Based on the above information and physical exam, may need to discuss colonoscopy, but would assure otherwise stable first.
--- NOTE | 2019-02-21 15:35 | PN ---
Progress Note (short form) - Note Progress Note: Patient seen and examined feels OK Last Vital Signs Temp Pulse Resp BP Pulse Ox 97.7 F 88 18 126/80 98 02/21/19 13:45 02/21/19 13:45 02/21/19 13:45 02/21/19 13:45 02/21/19 09:00 Cor: RSR, No murmurs, No gallops Lungs: Clear to P&A Abd: Soft, Normal bowel sounds, No organomegaly Ext:No significant edema Labs/Meds reviewed A/P 73 y/o patient with stage II breast cancer, ER-, PA-, Her2-3+ on taxotere/ herceptin/perjeta --- then switched to taxol/herceptin/perjeta due to diarrhea - - C4 W3 of taxol on 02/16/19-- comes in with worsening diarrhea and RLQ abdominal pain Now with RLQ abdominal pain 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
[2019-02-21] MEDS: SODIUM CHLORIDE 1,000 ML IV SCH ×2 (16:24→22:15)
--- NOTE | 2019-02-21 16:48 | CONSULT ---
Consult Consult Specialty:: General Surgery Referred by:: Dr. Conner Reason for Consultation:: ?colitis, diarrhea - History of Present Illness Chief Complaint: diarrhea, R flank/back pain, RLQ pain History of Present Illness: 73yo obese F with HLD, DM2, left breast CA diagnosed in November on chemotherapy, who has had diarrhea since starting her regimen, admitted to oncology service with persistent diarrhea and more recent onset of right flank and RLQ pain associated with it. She keeps a record of her diarrheal stools, and has been on lomotil/imodium, but still sees an increase in diarrhea around chemo treatment times - last was last Thursday. She has noted some pain, initially in right back/flank, but in last few days also in RLQ as well, which she cannot be sure when exactly it started. When she saw Dr. Conner again last Thursday, she still had the pain and was somewhat tender, so was admitted to the hospital. CT scan with IV but no po contrast showed some concentric wall thickening of distal ascending colon, possibly suggestive but not diagnostic of colitis/inflammatory vs infectious cause, though neoplastic could not be ruled out either. She had Cologuard in October, which was negative, and one colonoscopy in her 40s, which she has never wanted to repeat, because she does not feel she could tolerate the oral prep. She denies bloody or black stools, dysuria, F/C, N/V, or recent illness. She has been eating and tolerating diet, but has lost about 35 pounds since November as well. Labs showed normal wbc, lytes ok, C. diff negative, stool O&P pending. She has been seen by GI and started on codeine for the diarrhea, which she states gave her almost 24 hrs without a BM till yesterday morning, and the frequency has gone down. Surgery was asked to assess as well. She is seen and examined in bed. She experienced her right knee buckling on her earlier today while walking back from the bathroom, and allowed herself to sink to the ground, but denies hitting her head. While walking with the nurse to the stretcher for head CT, per protocol, they also felt her right knee buckle somewhat again. She is not sure whether she had any specific pain with these episodes, but does still note some pain in RLQ and R flank/hip area. - History Source History Provided By: Patient Limitations to Obtaining History: No Limitations - Past Medical History OVERCOILER: Yes: Peripheral Neuropathy (on gabapentin) Cardio/Vascular: Yes: Hyperlipdemia. No: HTN (pt on kelley-I for diabetes, not htn , per pt) Gastrointestinal: Yes: GERD Reproductive: Yes: Postmenopausal ...: No Endocrine: Yes: Diabetes Mellitus - Past Surgical History Past Surgical History: Yes: Breast Biopsy Additional Surgical History: D&C, left rotator cuff surgery - Alcohol/Substance Use Hx Alcohol Use: No History of Substance Use: reports: None - Smoking History Smoking history: Former smoker (1ppd x 50 yrs) Have you smoked in the past 12 months: No If you are a former smoker, when did you quit?: 10 years - Social History ADL: Independent Home Medications - Allergies Allergies/Adverse Reactions: Allergies Allergy/AdvReac Type Severity Reaction Status Date / Time Penicillins Allergy Intermediate Rash Verified 11/30/18 09:58 - Home Medications Home Medications: Ambulatory Orders Ascorbate Calcium [Vitamin C] 500 mg PO DAILY 01/28/17 Glipizide 5 mg PO TID 01/28/17 Levomefolate/B6/B12/Algal Oil [Metanx Capsule] 1 each PO DAILY 01/28/17 Multivit-Min/FA/Lycopen/Lutein [Centrum Silver Tablet] 1 tab PO DAILY 01/28/17 Naproxen Sodium [Aleve] 440 mg PO DAILY 01/28/17 Omeprazole 40 mg PO DAILY 01/28/17 Ramipril 2.5 mg PO HS 01/28/17 Saxagliptin HCl/Metformin HCl [Kombiglyze Xr 2.5-1,000 mg Tab] 1 tab PO BID Simvastatin 20 mg PO HS 01/28/17 Canagliflozin [Invokana] 300 mg PO DAILY 11/29/18 Gabapentin 600 mg PO HS 11/29/18 Tiotropium [place] [Spiriva] 1 inh PO DAILY 11/29/18 Albuterol Sulfate Inhaler - [Ventolin HFA Inhaler -] 1 puff PO PRN PRN 12/29/18 Loperamide HCl [Imodium -] 2 mg PO PRN PRN 12/29/18 Ondansetron HCl [Zofran] 8 mg PO PRN PRN 12/29/18 SYMBICORT 160/4.5mcg - 1 inh PO BID 12/29/18 Diphenoxylate 2.5/Atropine.025 [Lomotil -] 1 combo PO HS PRN #15 tablet MDD 1 Sitagliptin Phosphate [Januvia -] 50 mg PO DAILY@0700 tablet 01/01/19 Family Disease History - Family Disease History Other Family History: diabetes, dementia; pt is adopted, knows this from DNA testing and getting in touch with family members Review of Systems - Review of Systems Constitutional: reports: Unintentional Wgt. Loss (35 lbs since November). denies: Chills, Fever, Loss of Appetite Eyes: reports: Other (glasses for distance). denies: Blurred Vision, Recent Change in Vision HENT: denies: Difficult Swallowing, Throat Pain Neck: denies: Swollen Glands, Tenderness Cardiovascular: denies: Chest Pain, Palpitations Respiratory: denies: Cough, SOB (not since being on meds since November for her breathing (symbicort, spiriva)) Gastrointestinal: reports: Abdominal Pain (with hpi), Diarrhea (since starting chemo in November, with hpi). denies: Constipation, Melena, Nausea, Rectal Bleeding, Vomiting Genitourinary: denies: Burning, Dysuria Breasts: reports: See HPI Musculoskeletal: reports: Back Pain (right flank/back pain with hpi), Other ( right leg buckled twice today). denies: Joint Pain, Muscle Pain Integumentary: denies: Change in Color, Rash Neurological: reports: Other (right leg buckled twice today). denies: Dizziness , Headache Physical Exam Vital Signs: Vital Signs Temperature 97.7 F 02/21/19 13:45 Pulse Rate 88 02/21/19 13:45 Respiratory Rate 18 02/21/19 13:45 Blood Pressure 126/80 02/21/19 13:45 O2 Sat by Pulse Oximetry (%) 98 02/21/19 09:00 Constitutional: Yes: No Distress, Calm, Obese Eyes: Yes: Conjunctiva Clear, EOM Intact HENT: Yes: Atraumatic, Normocephalic Neck: Yes: Supple, Trachea Midline Cardiovascular: Yes: Regular Rate and Rhythm, Tachycardia (slight), Other ( right chest port, accessed) Respiratory: Yes: Regular, CTA Bilaterally. No: Wheezes Gastrointestinal: Yes: Normal Bowel Sounds, Soft, Abdomen, Obese, Tenderness ( mild RLQ, no rebound or guarding). No: Tenderness, Epigastrium ...Rectal Exam: Yes: Deferred Renal/: No: CVA Tenderness - Left, CVA Tenderness - Right Musculoskeletal: No: Back Pain (no direct tenderness), Joint Stiffness, Joint Swelling Extremities: No: Cool, Cyanosis Edema: No Peripheral Pulses WNL: Yes Integumentary: No: Jaundice, Rash Neurological: Yes: Alert, Oriented Psychiatric: Yes: Alert, Oriented Labs: CBC, BMP 02/19/19 06:40 02/19/19 06:40 CMP Sodium 138 mmol/L (136-145) 02/19/19 06:40 Potassium 3.8 mmol/L (3.5-5.1) 02/19/19 06:40 Chloride 105 mmol/L (98-107) 02/19/19 06:40 Carbon Dioxide 25 mmol/L (21-32) 02/19/19 06:40 Anion Gap 8 MMOL/L (8-16) 02/19/19 06:40 BUN 5.2 mg/dL (7-18) L 02/19/19 06:40 Creatinine 0.5 mg/dL (0.55-1.3) L 02/19/19 06:40 Est GFR (CKD-EPI)AfAm 112.07 02/19/19 06:40 Est GFR (CKD-EPI)NonAf 96.69 02/19/19 06:40 POC Glucometer 123 UNITS (80-120) 02/21/19 06:07 Random Glucose 126 mg/dL (74-106) H 02/19/19 06:40 Lactic Acid 1.3 mmol/L (0.4-2.0) 02/18/19 17:00 Calcium 8.7 mg/dL (8.5-10.1) 02/19/19 06:40 Magnesium 2.4 mg/dL (1.8-2.4) 02/19/19 06:40 Total Bilirubin 0.6 mg/dL (0.2-1) 02/19/19 06:40 AST 16 U/L (15-37) 02/19/19 06:40 ALT 25 U/L (13-61) 02/19/19 06:40 Alkaline Phosphatase 70 U/L (45-117) 02/19/19 06:40 Total Protein 6.2 g/dl (6.4-8.2) L 02/19/19 06:40 Albumin 3.5 g/dl (3.4-5.0) 02/19/19 06:40 Microbiology 02/18/19 20:20 Urine - Urine Clean Catch Urine Culture - Final NO GROWTH OBTAINED 02/18/19 17:20 Stool Clostridioides difficile Antigen - Preliminary 02/18/19 17:20 Stool Clostridioides difficile Toxin Assay - Preliminary C. diff negative Imaging - Results Cat Scan: Report Reviewed, Image Reviewed (images reviewed - slight wall thickening, haziness noted at distal ascending colon near hepatic flexure, no oral contrast used, difficult to tell if inflammatory, infectious, neoplastic, or artifactual...) Problem List - Problems (1) Chemotherapy induced diarrhea Assessment/Plan: given the history and chronology of the diarrhea, and its variation with chemo treatments, it is likely related to her chemo meds, as noted by GI and oncology per pt, the codeine does seem to be helping, though she still has some pain in right flank and mild pain and tenderness in RLQ, which seems to wax and wane, and may be related to defecation, though she cannot be sure she is tolerating diet C. diff was negative would send rest of stool studies, just to be complete consider adding bacid and recommending probiotics daily at home GI consult and recommendations noted, as well as today's note - agree with their input at some point, advised patient that colonoscopy may be worth repeating to definitively r/o any neoplastic process no acute surgical issues at this time trend labs follow clinical course discussed with Dr. Conner Thank you for the opportunity to participate in the care of this patient. Code(s): K52.1 - TOXIC GASTROENTERITIS AND COLITIS; T45.1X5A - ADVERSE EFFECT OF ANTINEOPLASTIC AND IMMUNOSUP DRUGS, INIT (2) Right flank pain Assessment/Plan: ? possibly related to sciatica? - neurology to see Code(s): R10.9 - UNSPECIFIED ABDOMINAL PAIN (3) RLQ abdominal pain Code(s): R10.31 - RIGHT LOWER QUADRANT PAIN (4) Breast cancer Assessment/Plan: on chemo - taxol/herceptin/perjeta Code(s): C50.919 - MALIGNANT NEOPLASM OF UNSP SITE OF UNSPECIFIED FEMALE BREAST Qualifiers: Breast location: lower inner quadrant of breast Estrogen receptor status: negative Patient sex: female Laterality: left Qualified Code(s): C50.312 - Malignant neoplasm of lower-inner quadrant of left female breast; Z17.1 - Estrogen receptor negative status [ER-] (5) Diabetes Assessment/Plan: holding metformin per GI consider checking A1C if not done recently Code(s): E11.9 - TYPE 2 DIABETES MELLITUS WITHOUT COMPLICATIONS Qualifiers: Diabetes mellitus type: type 2 Diabetes mellitus terminal makeup operator insulin use: without terminal makeup operator use Diabetes mellitus complication status: with neurologic complications Diabetes mellitus complication detail: with unspecified neuropathy Qualified Code(s): E11.40 - Type 2 diabetes mellitus with diabetic neuropathy, unspecified
--- NOTE | 2019-02-21 17:41 | CON.NEURO ---
Consult - Past Medical History Cardio/Vascular: Yes: Hyperlipdemia. No: HTN (pt on kelley-I for diabetes, not htn , per pt) Gastrointestinal: Yes: GERD ...: No Endocrine: Yes: Diabetes Mellitus - Past Surgical History Past Surgical History: Yes: Breast Biopsy Additional Surgical History: D&C, left rotator cuff surgery - Alcohol/Substance Use Hx Alcohol Use: No History of Substance Use: reports: None - Smoking History Smoking history: Former smoker (1ppd x 50 yrs) Have you smoked in the past 12 months: No Aproximately how many cigarettes per day: 0 If you are a former smoker, when did you quit?: 10 years - Social History ADL: Independent Home Medications - Allergies Allergies/Adverse Reactions: Allergies Allergy/AdvReac Type Severity Reaction Status Date / Time Penicillins Allergy Intermediate Rash Verified 11/30/18 09:58 - Home Medications Home Medications: Ambulatory Orders Ascorbate Calcium [Vitamin C] 500 mg PO DAILY 01/28/17 Glipizide 5 mg PO TID 01/28/17 Levomefolate/B6/B12/Algal Oil [Metanx Capsule] 1 each PO DAILY 01/28/17 Multivit-Min/FA/Lycopen/Lutein [Centrum Silver Tablet] 1 tab PO DAILY 01/28/17 Naproxen Sodium [Aleve] 440 mg PO DAILY 01/28/17 Omeprazole 40 mg PO DAILY 01/28/17 Ramipril 2.5 mg PO HS 01/28/17 Saxagliptin HCl/Metformin HCl [Kombiglyze Xr 2.5-1,000 mg Tab] 1 tab PO BID Simvastatin 20 mg PO HS 01/28/17 Canagliflozin [Invokana] 300 mg PO DAILY 11/29/18 Gabapentin 600 mg PO HS 11/29/18 Tiotropium [place] [Spiriva] 1 inh PO DAILY 11/29/18 Albuterol Sulfate Inhaler - [Ventolin HFA Inhaler -] 1 puff PO PRN PRN 12/29/18 Loperamide HCl [Imodium -] 2 mg PO PRN PRN 12/29/18 Ondansetron HCl [Zofran] 8 mg PO PRN PRN 12/29/18 SYMBICORT 160/4.5mcg - 1 inh PO BID 12/29/18 Diphenoxylate 2.5/Atropine.025 [Lomotil -] 1 combo PO HS PRN #15 tablet MDD 1 Sitagliptin Phosphate [Januvia -] 50 mg PO DAILY@0700 tablet 01/01/19 Family Disease History - Family Disease History Other Family History: diabetes, dementia; pt is adopted, knows this from DNA testing and getting in touch with family members Physical Exam-Neuro Vital Signs: Vital Signs Temperature 98.1 F 02/21/19 16:35 Pulse Rate 83 02/21/19 16:35 Respiratory Rate 18 02/21/19 16:35 Blood Pressure 144/76 02/21/19 16:35 O2 Sat by Pulse Oximetry (%) 98 02/21/19 09:00 Labs: CBC, BMP 02/19/19 06:40 02/19/19 06:40 Assessment/Plan cc Right hip and groin area pain for one day HPI 73 year old female history of HLD,DM,Left breast CA .Patient was diagnosed with breast cancer and she has been on cancer chemo. She just finished four cycle and she has been having diarrhoea. Patient complaining of right hip and groin area severe pain. Patient feel weak in her leg and felt twice in hospital. She denies any sensory symptoms or change in her bowel or bladder symptoms( diarrhoea since november but no incontinence) . Patient has been getting PT but have severe hip and right hip pain. Patient denies pain shooting down to right lower extremity. PMH as above PSH left rotatory cuff surgery, D&C. FH,ROS,SH reviewed in chart Allergies/Adverse Reactions: Allergies Allergy/AdvReac Type Severity Reaction Status Date / Time Penicillins Allergy Intermediate Rash Verified 11/30/18 09:58 Home Medications: Ascorbate Calcium [Vitamin C] 500 mg PO DAILY 01/28/17 Glipizide 5 mg PO TID 01/28/17 Levomefolate/B6/B12/Algal Oil [Metanx Capsule] 1 each PO DAILY 01/28/17 Multivit-Min/FA/Lycopen/Lutein [Centrum Silver Tablet] 1 tab PO DAILY 01/28/17 Naproxen Sodium [Aleve] 440 mg PO DAILY 01/28/17 Omeprazole 40 mg PO DAILY 01/28/17 Ramipril 2.5 mg PO HS 01/28/17 Saxagliptin HCl/Metformin HCl [Kombiglyze Xr 2.5-1,000 mg Tab] 1 tab PO BID Simvastatin 20 mg PO HS 01/28/17 Canagliflozin [Invokana] 300 mg PO DAILY 11/29/18 Gabapentin 600 mg PO HS 11/29/18 Tiotropium [place] [Spiriva] 1 inh PO DAILY 11/29/18 Albuterol Sulfate Inhaler - [Ventolin HFA Inhaler -] 1 puff PO PRN PRN 12/29/18 Loperamide HCl [Imodium -] 2 mg PO PRN PRN 12/29/18 Ondansetron HCl [Zofran] 8 mg PO PRN PRN 12/29/18 SYMBICORT 160/4.5mcg - 1 inh PO BID 12/29/18 Diphenoxylate 2.5/Atropine.025 [Lomotil -] 1 combo PO HS PRN #15 tablet MDD 1 Sitagliptin Phosphate [Januvia -] 50 mg PO DAILY@0700 tablet 01/01/19 NEUROLOGICAL EXAMINATION Alert oriented x 3 CN all intact , eomi, pupils reactive no face asymmetry motor 5/5 all ext knee flexion and hip flexion is painful and limited slr is mildly positive on right side rest of motor exam is normal on right side diminished reflex bilaterally sensation is normal Assessment/Plan right side hip pain and groin pain, with very mild radiating and limiting hip flexion and knee flexion. Suspects Lumbar radiculopathy, there is no evidence of cauda equina syndrome or cord compression. Possible L3-l4 Radiculopathy cant be rule out other possibility is SI joint disease vs hip arthritis Plan: Suggest to go get mri of L spine - PT - Nsaid PRN Thanking you so much Napoleon Alexis MD
[2019-02-21] MEDS: ATORVASTATIN CA 10 MG TABLET (FP) PO SCH (22:15)
[2019-02-21] MEDS: GABAPENTIN 300 MG CAPSULE (FP) PO SCH (22:15)
[2019-02-22] MEDS ORDERED: PORTA CATH FLUSH 10 ML IVPUSH PRN (02:30)
[2019-02-22] MEDS: glipiZIDE 5 MG TABLET (FP) PO SCH ×3 (06:50→22:06)
[2019-02-22] MEDS: RAMIPRIL 2.5 MG CAPSULE (FP) PO SCH (09:35)
[2019-02-22] MEDS: TIOTROPIUM BROMIDE 2.5 MCG (SPIRIVA) RESPIMAT INHALER IH SCH (09:35)
[2019-02-22] MEDS: BUDESONIDE/FORMETEROL FUMARATE 160/4.5 mcg INHALER IH SCH ×2 (09:35→22:07)
[2019-02-22] MEDS: ENOXAPARIN NA (PORCINE) 40 MG/0.4 ML DISP.SYRIN SQ SCH (09:36)
[2019-02-22] MEDS: SODIUM CHLORIDE 1,000 ML IV SCH ×2 (09:55→20:00)
[2019-02-22] MEDS: CODEINE SO4 30 MG TABLET PO PRN (10:09)
--- NOTE | 2019-02-22 11:59 | EKG ---
Test Reason : Blood Pressure : / mmHG Vent. Rate : 089 BPM Atrial Rate : 089 BPM P-R Int : 162 ms QRS Dur : 070 ms QT Int : 372 ms P-R-T Axes : 063 -04 004 degrees QTc Int : 452 ms NORMAL SINUS RHYTHM NORMAL ECG WHEN COMPARED WITH ECG OF 30-MAY-2008 13:40, NONSPECIFIC T WAVE ABNORMALITY NOW EVIDENT IN INFERIOR LEADS Confirmed by MD CARMELINA, CRISPIN ([id number]) on 02/22/2019 11:59:05 AM Referred By: DENNIS FOOTE DR Confirmed By:CRISPIN COSME MD
--- NOTE | 2019-02-22 14:23 | PN ---
Progress Note (short form) - Note Progress Note: feeling better had weakness of right leg- her leg buckled under soft stools x 3 today no abd pain has pain in back , radiating to groin Vital Signs - 24 hr 02/21/19 02/21/19 02/21/19 16:35 21:00 22:23 Temperature 98.1 F 98.3 F Pulse Rate 83 86 Respiratory 18 20 20 Rate Blood Pressure 144/76 126/59 L O2 Sat by Pulse 98 Oximetry (%) 02/22/19 02/22/19 02/22/19 05:50 06:35 08:35 Temperature 97.2 F L 97.4 F L 98.3 F Pulse Rate 94 H 98 H 92 H Respiratory 20 20 20 Rate Blood Pressure 125/77 132/78 128/82 O2 Sat by Pulse Oximetry (%) 02/22/19 02/22/19 02/22/19 09:00 10:00 10:35 Temperature 98.3 F 98 F Pulse Rate 92 H 88 Respiratory 20 20 20 Rate Blood Pressure 128/82 133/82 O2 Sat by Pulse 96 Oximetry (%) Current Medications Generic Name Dose Route Start Last Admin Trade Name Freq PRN Reason Stop Dose Admin Acetaminophen 650 mg 02/20/19 10:09 02/21/19 09:23 Tylenol - PO 650 mg Q6H PRN Administration MODERATE PAIN Albuterol Sulfate 2 puff 02/18/19 18:39 Ventolin Hfa Inhaler - IH Q6H PRN SHORTNESS OF BREATH Atorvastatin Calcium 10 mg 02/18/19 22:00 02/21/19 22:15 Lipitor - PO 10 mg HS LUL Administration Budesonide/Formoterol Fumarate 2 puff 02/18/19 22:00 02/22/19 09:35 Symbicort 160/4.5mcg - IH 2 puff BID LUL Administration Codeine Sulfate 30 mg 02/19/19 09:12 02/22/19 10:09 Codeine Sulfate - PO 30 mg Q6H PRN Administration DIARRHEA Enoxaparin Sodium 40 mg 02/19/19 10:00 02/22/19 09:36 Lovenox - SQ 40 mg DAILY LUL Administration Gabapentin 600 mg 02/18/19 22:00 02/21/19 22:15 Neurontin - PO 600 mg HS LUL Administration Glipizide 5 mg 02/19/19 07:00 02/22/19 06:50 Glucotrol - PO 5 mg ACBK LUL Administration Glipizide 7.5 mg 02/19/19 16:30 02/21/19 16:23 Glucotrol - PO 7.5 mg ACDIN LUL Administration Glipizide 5 mg 02/18/19 22:00 02/21/19 22:15 Glucotrol - PO Not Given DAILY@2200 LUL IV Flush 10 ml 02/22/19 02:30 Rekha-Cath Flush IVPUSH PRN PRN protocol, maintain patency Sodium Chloride 500 mls @ 60 mls/hr 02/18/19 17:28 02/22/19 09:55 Normal Saline - IV 60 mls/hr ASDIR LUL Administration Ramipril 2.5 mg 02/19/19 10:00 02/22/19 09:35 Altace - PO 2.5 mg DAILY LUL Administration Sitagliptin Phosphate 100 mg 02/19/19 07:00 02/22/19 06:51 Januvia - PO 100 mg DAILY@0700 LUL Administration Tiotropium [place] 2 puff 02/19/19 10:00 02/22/19 09:35 Spiriva Respimat IH 2 puff DAILY LUL Administration Laboratory Results - last 24 hr 02/22/19 06:49 POC Glucometer 145 S1S2 RRR Lungs clear Abd- soft , ND, BS+ no edema No edema PLAN CT abd done-- results -->thickening in ascending colon-- GI to follow up --> will need repeat colonoscopy continue with meds received codeine prn for loose stools MRI LS spine ordered for weakness of right leg -- lumbar radiculopathy stool studies - cdiff negative Surgical eval noted Problem List - Problems (1) Breast cancer Code(s): C50.919 - MALIGNANT NEOPLASM OF UNSP SITE OF UNSPECIFIED FEMALE BREAST Qualifiers: Breast location: lower inner quadrant of breast Estrogen receptor status: negative Patient sex: female Laterality: left Qualified Code(s): C50.312 - Malignant neoplasm of lower-inner quadrant of left female breast; Z17.1 - Estrogen receptor negative status [ER-] (2) Dehydration Code(s): E86.0 - DEHYDRATION (3) Diabetes Code(s): E11.9 - TYPE 2 DIABETES MELLITUS WITHOUT COMPLICATIONS Qualifiers: Diabetes mellitus type: type 2 Diabetes mellitus terminal worker insulin use: without retirement use Diabetes mellitus complication status: with neurologic complications Diabetes mellitus complication detail: with unspecified neuropathy Qualified Code(s): E11.40 - Type 2 diabetes mellitus with diabetic neuropathy, unspecified (4) HTN (hypertension) Code(s): I10 - ESSENTIAL (PRIMARY) HYPERTENSION (5) Hypokalemia Code(s): E87.6 - HYPOKALEMIA (6) Intractable diarrhea Code(s): R19.7 - DIARRHEA, UNSPECIFIED (7) Lumbar radiculopathy Code(s): M54.16 - RADICULOPATHY, LUMBAR REGION (8) Chemotherapy adverse reaction Code(s): T45.1X5A - ADVERSE EFFECT OF ANTINEOPLASTIC AND IMMUNOSUP DRUGS, INIT Qualifiers: Encounter type: initial encounter Qualified Code(s): T45.1X5A - Adverse effect of antineoplastic and immunosuppressive drugs, initial encounter (9) Chemotherapy induced diarrhea Code(s): K52.1 - TOXIC GASTROENTERITIS AND COLITIS; T45.1X5A - ADVERSE EFFECT OF ANTINEOPLASTIC AND IMMUNOSUP DRUGS, INIT
--- NOTE | 2019-02-22 15:20 | PN.GI ---
GI Progress Note Subjective: No acute events Describes intermittent RLQ tenderness 3 soft BM's today - Objective Vital Signs: Vital Signs Temperature 98.1 F 02/22/19 14:45 Pulse Rate 90 02/22/19 14:45 Respiratory Rate 20 02/22/19 14:45 Blood Pressure 133/68 02/22/19 14:45 O2 Sat by Pulse Oximetry (%) 96 02/22/19 09:00 Constitutional: Calm Eyes: No: Sclera Icterus Cardiovascular: Yes: Regular Rate and Rhythm Respiratory: Yes: CTA Bilaterally Gastrointestinal Inspection: No: Distention ...Auscultate: Yes: Normoactive Bowel Sounds ...Palpate: Yes: Tenderness (Mild TTP RLQ) ...Percussion: No: Tympanitic Edema: No Labs: CBC, BMP 02/19/19 06:40 02/19/19 06:40 Laboratory Tests 02/18/19 02/22/19 17:20 11:00 O & P Permanent Slide Pending Pending Microbiology 02/18/19 17:20 Stool Clostridioides difficile Antigen - Neg 02/18/19 17:20 Stool Clostridioides difficile Toxin Assay - Neg Problem List - Problems (1) Intractable diarrhea Assessment/Plan: Improved. Awaiting stool studies I did discuss possibility of colonoscopy for evaluation of the ascending colon thickening noted on CT scan. Ms. Mayer is concerned regarding drinking liquid for the bowel prep. I explained that the bowel prep options here use both pill and liquid. She will think about this option. I asked that is she is amenable to this that she discuss with Dr. Sanderson. Titrate down the codeine sulfate as diarrhea permits, (ie 15mg PO q 6-8 hrs PRN) Code(s): R19.7 - DIARRHEA, UNSPECIFIED
--- NOTE | 2019-02-22 15:26 | PN ---
Progress Note, Physician History of Present Illness: 73yo obese F with HLD, DM2, left breast CA diagnosed in November on chemotherapy, who has had diarrhea since starting her regimen, admitted to oncology service with persistent diarrhea and more recent onset of right flank and RLQ pain associated with it. She is seen and examined briefly in wheelchair, on her way to MRI for spinal study. States she is feeling a bit better. Diarrhea still present, but frequency is decreased. Stool studies were sent. Still having some right-sided pain, but less overall. - Current Medication List Current Medications: Active Medications Acetaminophen (Tylenol -) 650 mg PO Q6H PRN PRN Reason: MODERATE PAIN Last Admin: 02/21/19 09:23 Dose: 650 mg Albuterol Sulfate (Ventolin Hfa Inhaler -) 2 puff IH Q6H PRN PRN Reason: SHORTNESS OF BREATH Atorvastatin Calcium (Lipitor -) 10 mg PO HS [facility] Last Admin: 02/21/19 22:15 Dose: 10 mg Budesonide/Formoterol Fumarate (Symbicort 160/4.5mcg -) 2 puff IH BID [facility] Last Admin: 02/22/19 09:35 Dose: 2 puff Codeine Sulfate (Codeine Sulfate -) 30 mg PO Q6H PRN PRN Reason: DIARRHEA Last Admin: 02/22/19 10:09 Dose: 30 mg Enoxaparin Sodium (Lovenox -) 40 mg SQ DAILY [facility] Last Admin: 02/22/19 09:36 Dose: 40 mg Gabapentin (Neurontin -) 600 mg PO HS [facility] Last Admin: 02/21/19 22:15 Dose: 600 mg Glipizide (Glucotrol -) 5 mg PO ACBK [facility] Last Admin: 02/22/19 06:50 Dose: 5 mg Glipizide (Glucotrol -) 7.5 mg PO ACDIN [facility] Last Admin: 02/21/19 16:23 Dose: 7.5 mg Glipizide (Glucotrol -) 5 mg PO DAILY@2200 [facility] Last Admin: 02/21/19 22:15 Dose: Not Given IV Flush (Rekha-Cath Flush) 10 ml IVPUSH PRN PRN PRN Reason: protocol, maintain patency Sodium Chloride (Normal Saline -) 500 mls @ 60 mls/hr IV ASDIR [facility] Last Admin: 02/22/19 09:55 Dose: 60 mls/hr Ramipril (Altace -) 2.5 mg PO DAILY [facility] Last Admin: 02/22/19 09:35 Dose: 2.5 mg Sitagliptin Phosphate (Januvia -) 100 mg PO DAILY@0700 [facility] Last Admin: 02/22/19 06:51 Dose: 100 mg Tiotropium [place] (Spiriva Respimat) 2 puff IH DAILY [facility] Last Admin: 02/22/19 09:35 Dose: 2 puff - Objective Vital Signs: Vital Signs Temperature 98.1 F 02/22/19 14:45 Pulse Rate 90 02/22/19 14:45 Respiratory Rate 20 02/22/19 14:45 Blood Pressure 133/68 02/22/19 14:45 O2 Sat by Pulse Oximetry (%) 96 02/22/19 09:00 Constitutional: Yes: No Distress, Calm, Obese Eyes: Yes: Conjunctiva Clear, EOM Intact HENT: Yes: Atraumatic, Normocephalic Gastrointestinal: Yes: Soft, Abdomen, Obese, Tenderness (minimal, if any, RLQ tenderness at this time - brief exam in chair only). No: Tenderness, Epigastrium, Tenderness, Rebound Extremities: No: Cool, Cyanosis Integumentary: No: Jaundice, Rash Neurological: Yes: Alert, Oriented Labs: CBC, BMP 02/19/19 06:40 02/19/19 06:40 stool studies pending Problem List - Problems (1) Chemotherapy induced diarrhea Assessment/Plan: given the history and chronology of the diarrhea, and its variation with chemo treatments, it is likely related to her chemo meds, as noted by GI and oncology per pt, the codeine does seem to be helping, though she still has some pain on right side, which is improving she is tolerating diet C. diff was negative stool studies pending adding bacid - recommending probiotics daily at home GI input noted at some point, advised patient that colonoscopy may be worth repeating to definitively r/o any neoplastic process no acute surgical issues at this time trend labs follow clinical course Code(s): K52.1 - TOXIC GASTROENTERITIS AND COLITIS; T45.1X5A - ADVERSE EFFECT OF ANTINEOPLASTIC AND IMMUNOSUP DRUGS, INIT (2) Right flank pain Code(s): R10.9 - UNSPECIFIED ABDOMINAL PAIN (3) RLQ abdominal pain Code(s): R10.31 - RIGHT LOWER QUADRANT PAIN (4) Breast cancer Assessment/Plan: on chemo - taxol/herceptin/perjeta Code(s): C50.919 - MALIGNANT NEOPLASM OF UNSP SITE OF UNSPECIFIED FEMALE BREAST Qualifiers: Qualified Code(s): C50.312 - Malignant neoplasm of lower-inner quadrant of left female breast; Z17.1 - Estrogen receptor negative status [ER-] (5) Diabetes Assessment/Plan: holding metformin per GI consider checking A1C if not done recently Code(s): E11.9 - TYPE 2 DIABETES MELLITUS WITHOUT COMPLICATIONS Qualifiers: Qualified Code(s): E11.40 - Type 2 diabetes mellitus with diabetic neuropathy , unspecified
[2019-02-22] MEDS: LACTOBACILLUS ACIDOPHILUS 1 TABLET PO SCH (16:39)
--- NOTE | 2019-02-22 18:52 | PN ---
Progress Note (short form) - Note Progress Note: Patient seen and examined Diarrhea improved Sciatica improved Abdominal tenderness improved Last Vital Signs Temp Pulse Resp BP Pulse Ox 98.4 F 96 H 20 130/76 96 02/22/19 18:00 02/22/19 18:00 02/22/19 18:00 02/22/19 18:00 02/22/19 09:00 HEENT: HERMAN, EOM Intact Cor: RSR, No murmurs, No gallops Lungs: Clear to P&A Abd: Soft, Normal bowel sounds, No organomegaly, NO TENDERNESS Ext:No significant edema Skin: No rashes, Integument intact CBC, BMP 02/19/19 06:40 02/19/19 06:40 Current Medications Generic Name Dose Route Start Last Admin Trade Name Freq PRN Reason Stop Dose Admin Acetaminophen 650 mg 02/20/19 10:09 02/21/19 09:23 Tylenol - PO 650 mg Q6H PRN Administration MODERATE PAIN Albuterol Sulfate 2 puff 02/18/19 18:39 Ventolin Hfa Inhaler - IH Q6H PRN SHORTNESS OF BREATH Atorvastatin Calcium 10 mg 02/18/19 22:00 02/21/19 22:15 Lipitor - PO 10 mg HS [facility] Administration Budesonide/Formoterol Fumarate 2 puff 02/18/19 22:00 02/22/19 09:35 Symbicort 160/4.5mcg - IH 2 puff BID [facility] Administration Codeine Sulfate 30 mg 02/19/19 09:12 02/22/19 10:09 Codeine Sulfate - PO 30 mg Q6H PRN Administration DIARRHEA Enoxaparin Sodium 40 mg 02/19/19 10:00 02/22/19 09:36 Lovenox - SQ 40 mg DAILY [facility] Administration Gabapentin 600 mg 02/18/19 22:00 02/21/19 22:15 Neurontin - PO 600 mg HS [facility] Administration Glipizide 5 mg 02/19/19 07:00 02/22/19 06:50 Glucotrol - PO 5 mg ACBK [facility] Administration Glipizide 7.5 mg 02/19/19 16:30 02/22/19 16:39 Glucotrol - PO 7.5 mg ACDIN [facility] Administration Glipizide 5 mg 02/18/19 22:00 02/21/19 22:15 Glucotrol - PO Not Given DAILY@2200 [facility] IV Flush 10 ml 02/22/19 02:30 Rekha-Cath Flush IVPUSH PRN PRN protocol, maintain patency Sodium Chloride 500 mls @ 60 mls/hr 02/18/19 17:28 02/22/19 09:55 Normal Saline - IV 60 mls/hr ASDIR [facility] Administration Lactobacillus Acidophilus 1 tab 02/22/19 15:30 02/22/19 16:39 Bacid - PO 1 tab DAILY [facility] Administration Ramipril 2.5 mg 02/19/19 10:00 02/22/19 09:35 Altace - PO 2.5 mg DAILY [facility] Administration Sitagliptin Phosphate 100 mg 02/19/19 07:00 02/22/19 06:51 Januvia - PO 100 mg DAILY@0700 [facility] Administration Tiotropium [employer] 2 puff 02/19/19 10:00 02/22/19 09:35 Spiriva Respimat IH 2 puff DAILY [facility] Administration Impression: Clinical improvement Deciding about colonoscopy.
[2019-02-22] MEDS: GABAPENTIN 300 MG CAPSULE (FP) PO SCH (22:07)
[2019-02-22] MEDS: ATORVASTATIN CA 10 MG TABLET (FP) PO SCH (22:07)
[2019-02-23] MEDS: glipiZIDE 5 MG TABLET (FP) PO SCH (06:46)
[2019-02-23 07:59] LABS: ALBUMIN 3.2 g/dl (3.4-5.0); BILIRUBIN,TOTAL 0.2 mg/dL (0.2-1); BLOOD UREA NITROGEN 4.1 mg/dL (7-18); CALCIUM 8.7 mg/dL (8.5-10.1); CREATININE 0.5 mg/dL (0.55-1.3); POTASSIUM 4.1 mmol/L (3.5-5.1); TOT PROT 5.9 g/dl (6.4-8.2)
[2019-02-23 08:17] LABS: BASO % 1.4 % (0-2.0); EOS % 5.1 % (0-4.5); HEMATOCRIT 34.8 % (32.4-45.2); HEMOGLOBIN 11.7 GM/dL (10.7-15.3); MCH 31.9 pg (25.7-33.7); MCHC 33.7 g/dl (32.0-36.0); MEAN CELL VOLUME 94.9 fl (80-96); MEAN PLT VOLUME 8.9 fl (7.5-11.1); NEUT % 51.5 % (42.8-82.8); PLATELET COUNT 272 K/MM3 (134-434); RBC 3.67 M/mm3 (3.60-5.2); RDW 15.8 % (11.6-15.6); WHITE BLOOD COUNT 4.8 K/mm3 (4.0-10.0)
[2019-02-23 08:52] VITALS: BP 156/87; PULSE 83; TEMP 98.2
[2019-02-23] MEDS: LACTOBACILLUS ACIDOPHILUS 1 TABLET PO SCH (09:20)
[2019-02-23] MEDS: RAMIPRIL 2.5 MG CAPSULE (FP) PO SCH (09:20)
[2019-02-23] MEDS: ENOXAPARIN NA (PORCINE) 40 MG/0.4 ML DISP.SYRIN SQ SCH (09:20)
[2019-02-23] MEDS: BUDESONIDE/FORMETEROL FUMARATE 160/4.5 mcg INHALER IH SCH (09:23)
[2019-02-23] MEDS: TIOTROPIUM BROMIDE 2.5 MCG (SPIRIVA) RESPIMAT INHALER IH SCH (09:23)
--- NOTE | 2019-02-23 13:32 | DS ---
Physical Examination Vital Signs: Vital Signs Temperature 98.2 F 02/23/19 08:51 Pulse Rate 83 02/23/19 08:51 Respiratory Rate 18 02/23/19 09:00 Blood Pressure 156/87 02/23/19 08:51 O2 Sat by Pulse Oximetry (%) 96 02/23/19 09:00 Constitutional: Yes: No Distress, Calm Cardiovascular: Yes: Regular Rate and Rhythm Respiratory: Yes: CTA Bilaterally Gastrointestinal: Yes: Normal Bowel Sounds, Soft, Abdomen, Obese. No: Tenderness Labs: CBC, BMP 02/23/19 05:50 02/23/19 05:50 Discharge Summary Reason For Visit: BREAST CANCER Current Active Problems Chemotherapy adverse reaction (Acute) Chemotherapy induced diarrhea (Acute) Lumbar radiculopathy (Acute) RLQ abdominal pain (Acute) Right flank pain (Acute) Hospital Course: Admitted for intractable diarrhea CT abd/pelvis-- has thickening in ascending colon stool studies negative evaluated by GI and Surgery-- pt received codeine which helped the diarrhea now she has soft stools Diarrhea likely induced by chemotherapy/immunotherapy she was advised to get a colonoscopy and she would rather wait at this time follow up with oncology /GI stable for dc home - Instructions - Home Medications Comprehensive Discharge Medication List: Ambulatory Orders Ascorbate Calcium [Vitamin C] 500 mg PO DAILY 01/28/17 Glipizide 5 mg PO TID 01/28/17 Levomefolate/B6/B12/Algal Oil [Metanx Capsule] 1 each PO DAILY 01/28/17 Multivit-Min/FA/Lycopen/Lutein [Centrum Silver Tablet] 1 tab PO DAILY 01/28/17 Omeprazole 40 mg PO DAILY 01/28/17 Ramipril 2.5 mg PO HS 01/28/17 Saxagliptin HCl/Metformin HCl [Kombiglyze Xr 2.5-1,000 mg Tab] 1 tab PO BID Simvastatin 20 mg PO HS 01/28/17 Canagliflozin [Invokana] 300 mg PO DAILY 11/29/18 Gabapentin 600 mg PO HS 11/29/18 Tiotropium [place] [Spiriva] 1 inh PO DAILY 11/29/18 Albuterol Sulfate Inhaler - [Ventolin HFA Inhaler -] 1 puff PO PRN PRN 12/29/18 Ondansetron HCl [Zofran] 8 mg PO PRN PRN 12/29/18 SYMBICORT 160/4.5mcg - 1 inh PO BID 12/29/18 Sitagliptin Phosphate [Januvia -] 50 mg PO DAILY@0700 tablet 01/01/19 Codeine Sulfate - 30 mg PO Q6H PRN #14 tablet MDD 4 02/23/19 Lactobacillus Acidophilus [Bacid -] 1 tab PO DAILY #30 tab 02/23/19
--- NOTE | 2019-02-23 16:28 | PN.GI ---
GI Progress Note Subjective: Pt feeling better, had one soft bm this am, no blood, last dose of codeine yesterday am. Had mild intermittent RLQ pain though states this has improved. Denies abdominal pain, n/v currently. Appetite good. Tolerating po well. - Objective Vital Signs: Vital Signs Temperature 98.2 F 02/23/19 08:51 Pulse Rate 83 02/23/19 08:51 Respiratory Rate 18 02/23/19 09:00 Blood Pressure 156/87 02/23/19 08:51 O2 Sat by Pulse Oximetry (%) 96 02/23/19 09:00 Constitutional: Well Nourished, No Distress Cardiovascular: Yes: WNL, Regular Rate and Rhythm Respiratory: Yes: WNL, Regular, CTA Bilaterally ...Palpate: Yes: Other (Abd soft, nt, nd) Labs: CBC, BMP 02/23/19 05:50 02/23/19 05:50 Problem List - Problems (1) Diarrhea Assessment/Plan: 73yo female h/o breast ca s/p chemotherapy (last session 1 week ago) presents with diarrhea and CT imaging revealing thickening at the right colon. Possibly self limiting colitis however cannot exclude underlying pathology or malignancy. Last colonoscopy more than 30 years ago. Cologuard testing within 6 months reportedly negative. C difficile negative. Diarrhea improved. -Continue supportive measures, diet as tolerated -Could discontinue codeine as no further diarrhea -Follow up stool ova/parasites -Discussed again risks/benefits of colonoscopy for further evaluation (pending complete infectious stool workup) and possibility of missed lesions if not pursued. Pt verbalized understanding though states she would like to avoid colonoscopy at this time. May reconsider in future. -Pending dispo, recommend outpatient GI follow up if pt agreeable Discussed with heme/onc attending Code(s): R19.7 - DIARRHEA, UNSPECIFIED
== END 2019-02-23 14:00 | disposition home or self-care (01) | DRG 395 ==
LOC: JONCNONCHE 10:24 → J7W 10:39
PROVIDERS: ADMIT Internal Medicine Hematology & Oncology; ATTEND Internal Medicine Hematology & Oncology
DX: K52.1 Toxic gastroenteritis and colitis (principal); C50.312 Malignant neoplasm of lower-inner quadrant of left female breast; T45.1X5A Adverse effect of antineoplastic and immunosuppressive drugs, initial encounter; Y92.038 Other place in apartment as the place of occurrence of the external cause; E87.6 Hypokalemia; E86.0 Dehydration; E11.42 Type 2 diabetes mellitus with diabetic polyneuropathy; Z17.1 Estrogen receptor negative status [ER-]; Z68.34 Body mass index [BMI] 34.0-34.9, adult; E66.9 Obesity, unspecified; E78.5 Hyperlipidemia, unspecified; Z79.84 Long term (current) use of oral hypoglycemic drugs; Z87.891 Personal history of nicotine dependence; K21.9 Gastro-esophageal reflux disease without esophagitis; M54.16 Radiculopathy, lumbar region
CPT/HCPCS: 36415; 70450-TC; 72131-TC; 72148-TC; 74177-TC; 80048; 80053; 80076; 82962; 83605; 83735; 85025; 87045; 87046; 87086; 87177; 87209; 87324; 87449; 93005; 93010; 96361; 96367; 96413; 97116-GP; 97161-GP; J7030

== ENCOUNTER → 2019-02-21 | Day surgery (SDC) | payer OTHER, BC | LOC: JONCNONCHE 07:13 ==

== ENCOUNTER 2019-03-02 07:10 | Day surgery (SDC) | payer OTHER, BC ==
[2019-03-02] MEDS ORDERED: DIPHENHYDRAMINE 25 MG in SODIUM CHLORIDE 50 ML IVPB ONE (09:00)
[2019-03-02] MEDS ORDERED: ACETAMINOPHEN 325 MG TABLET (FP) PO ONE (09:00)
[2019-03-02] MEDS ORDERED: SODIUM CHLORIDE IVPB ONE (09:30)
[2019-03-02] MEDS ORDERED: TRASTUZUMAB IVPB ONE (09:30)
[2019-03-02] MEDS ORDERED: SODIUM CHLORIDE 500 ML IV SCH (10:30)
[2019-03-02 16:28] VITALS: BP 126/85; PULSE 90; TEMP 98.2
== END 2019-03-02 13:00 | disposition home or self-care (01) ==
LOC: JONCCHEMO 07:10 → J7W 09:36 → JONCCHEMO 13:00
PROVIDERS: ATTEND Internal Medicine Hematology & Oncology
DX: Z51.11 Encounter for antineoplastic chemotherapy (principal); C50.919 Malignant neoplasm of unspecified site of unspecified female breast; Z17.1 Estrogen receptor negative status [ER-]; E11.9 Type 2 diabetes mellitus without complications; Z79.84 Long term (current) use of oral hypoglycemic drugs; R19.7 Diarrhea, unspecified
CPT/HCPCS: 96361; 96375; 96413; J9355

== ENCOUNTER → 2019-03-04 | Day surgery (SDC) | payer OTHER, BC | LOC: JONCNONCHE 08:31 ==

== ENCOUNTER 2019-03-11 06:19 | Day surgery (SDC) | payer OTHER, BC ==
[2019-03-11] MEDS ORDERED: SODIUM CHLORIDE 500 ML IV ONE (10:00)
[2019-03-11 10:25] LABS: HEMOGLOBIN 13.5 GM/dL (10.7-15.3); WHITE BLOOD COUNT 8.5 K/mm3 (4.0-10.0)
[2019-03-11 10:51] LABS: ALBUMIN 3.9 g/dl (3.4-5.0); BILIRUBIN,TOTAL 0.7 mg/dL (0.2-1); BLOOD UREA NITROGEN 12.5 mg/dL (7-18); CALCIUM 8.9 mg/dL (8.5-10.1); CREATININE 0.6 mg/dL (0.55-1.3); MAGNESIUM 1.7 mg/dL (1.8-2.4); POTASSIUM 3.8 mmol/L (3.5-5.1); TOT PROT 6.9 g/dl (6.4-8.2)
[2019-03-11 10:54] LABS: BASO % 0.8 % (0-2.0); EOS % 3.3 % (0-4.5); LYMPH % 23.5 % (8-40); MCH 31.5 pg (25.7-33.7); MCHC 33.7 g/dl (32.0-36.0); MEAN CELL VOLUME 93.4 fl (80-96); MEAN PLT VOLUME 9.5 fl (7.5-11.1); MONO % 6.4 % (3.8-10.2); PLATELET COUNT 221 K/MM3 (134-434); RBC 4.28 M/mm3 (3.60-5.2); RDW 15.5 % (11.6-15.6)
[2019-03-11] MEDS ORDERED: MAGNESIUM SULF 50% (8.12 MEQ/2 ML-1 GM VIAL) ONE (11:10)
[2019-03-11] MEDS ORDERED: MAGNESIUM SULF 50% (8.12 MEQ/2 ML-1 GM VIAL) IVPB ONE (11:30)
[2019-03-11 12:48] VITALS: BP 123/58; PULSE 90; TEMP 98.2
[2019-03-11] MEDS ORDERED: PORTA CATH FLUSH 10 ML IVPUSH ONE (12:48)
--- NOTE | 2019-03-11 19:11 | HP ---
Satellite H - Chief Complaint Chief Complaint: Here for follow up of breast cancer. s/p 2 cycles of neoadjuvant taxotere/hercepin/peruzumab. weekly taxol x 6 , herceptin/ pertuzumab. Course complicated by colitis, falls. last dose taxol 02/16. last dose herceptin 03/04. For breast MRI History Source: Patient - Past Medical History Allergies/Adverse Reactions: Allergies Allergy/AdvReac Type Severity Reaction Status Date / Time Penicillins Allergy Intermediate Rash Verified 11/30/18 09:58 Cardiovascular: Yes: HTN, Hyperlipdemia Gastrointestinal: Yes: GERD Heme/Onc: Yes: Cancer Endocrine: Yes: Diabetes Mellitus - Current Medications Current Medications: Home Medications Medication Instructions Recorded Ascorbate Calcium [Vitamin C] 500 mg PO DAILY 01/28/17 Glipizide 5 mg PO TID 01/28/17 Multivit-Min/FA/Lycopen/Lutein 1 tab PO DAILY 01/28/17 [Centrum Silver Tablet] Omeprazole 40 mg PO DAILY 01/28/17 Ramipril 2.5 mg PO HS 01/28/17 Saxagliptin HCl/Metformin HCl 1 tab PO BID 01/28/17 [Kombiglyze Xr 2.5-1,000 mg Tab] Simvastatin 20 mg PO HS 01/28/17 Canagliflozin [Invokana] 300 mg PO DAILY 11/29/18 Gabapentin 600 mg PO HS 11/29/18 Tiotropium [place] [Spiriva] 1 inh PO DAILY 11/29/18 Albuterol Sulfate Inhaler - 1 puff PO PRN PRN 12/29/18 [Ventolin HFA Inhaler -] SYMBICORT 160/4.5mcg - 1 inh PO BID 12/29/18 Lactobacillus Acidophilus [Bacid -] 1 tab PO DAILY #30 tab 02/23/19 Lomotil 2.5-0.025 mg Tablet 1 tab PO QID PRN MDD 4 03/02/19 Satellite Physical Exam - Physical Examination Vital Signs: Vital Signs Period Temp Pulse Resp BP Sys/Marroquin Pulse Ox Last 24 Hr 98.2 F-98.2 F 79-90 18-18 114-123/58-74 General Appearance: Well Nourished, Well Developed Lung: Clear to auscultation, Normal air movement Heart: Regular rate & rhythm Abdomen: Soft, No tenderness, Normal bowel sounds Extremities: No edema Neurological: Intact Satellite Impression/Plan - Impression/Plan Impression: 73 y/o patien with stage III breast cancer. s/p taxotere/herceptin/ pertuzumab x 2 cycles, weekly taxol x 6. last dose herceptin 03/04. colitis -- improved. grade I. for hydration/magnesium replacement. falls-- to f/u with neurology regarding neuropathy. discussed with Dr. Alexis. For breast MRI. To coordinate surgery
== END 2019-03-11 12:40 | disposition home or self-care (01) ==
LOC: JONCCHEMO 06:19 → J7W 09:18 → JONCCHEMO 12:40
PROVIDERS: ATTEND Internal Medicine Hematology & Oncology
PROC: 3E043GC Introduction of Other Therapeutic Substance into Central Vein, Percutaneous Approach (ICD-10-PCS; principal; 2019-03-11)
PROC: 3E043GC Introduction of Other Therapeutic Substance into Central Vein, Percutaneous Approach (ICD-10-PCS; 2019-03-11)
DX: C50.919 Malignant neoplasm of unspecified site of unspecified female breast (principal); Z76.89 Persons encountering health services in other specified circumstances
CPT/HCPCS: 36415; 80053; 83735; 85025; 96361; 96365; 96417

== ENCOUNTER 2019-03-23 07:13 | Day surgery (SDC) | payer OTHER, BC | END 2019-03-23 14:10 | disposition home or self-care (01) | LOC: JONCCHEMO 07:13 → J7W 10:10 → JONCCHEMO 14:10 ==

== ENCOUNTER 2019-04-01 05:26 | Day surgery (SDC) | payer OTHER, BC ==
[2019-04-01] MEDS ORDERED: MAGNESIUM SULF 50% (8.12 MEQ/2 ML-1 GM VIAL) ONE (13:05)
[2019-04-01] MEDS ORDERED: MAGNESIUM SULF 50% (8.12 MEQ/2 ML-1 GM VIAL) IVPB ONE (13:15)
--- NOTE | 2019-04-01 13:30 | PN ---
Progress Note (short form) - Note Progress Note: ID consult dictated 73 yo female with breast cancer admitted for IV infusion today asked to see for rash on back by Dr Conner no fevers no new meds, no new soaps or creams feels itchy reports rash on back for one week now was scratching the area used aloe and cortisone cream last night with good improvement skin exam with 4 small puctate lesions lower back midline- dry- no vesicles, no dermatomal distribution no rash elsewhere skin is very dry agree with skin moisturizer and cortisone cream derm eval if rash worsens nothing to suggest zoster at this time Problem List - Problems (1) Rash Code(s): R21 - RASH AND OTHER NONSPECIFIC SKIN ERUPTION (2) Breast cancer Code(s): C50.919 - MALIGNANT NEOPLASM OF UNSP SITE OF UNSPECIFIED FEMALE BREAST Qualifiers: Breast location: lower inner quadrant of breast Estrogen receptor status: negative Patient sex: female Laterality: left Qualified Code(s): C50.312 - Malignant neoplasm of lower-inner quadrant of left female breast; Z17.1 - Estrogen receptor negative status [ER-]
[2019-04-01 15:02] VITALS: BP 125/76; PULSE 96; TEMP 97.9
[2019-04-01] MEDS ORDERED: PORTA CATH FLUSH 10 ML IVPUSH ONE (15:04)
--- NOTE | 2019-04-01 16:32 | CONS ---
DATE OF CONSULTATION: 04/01/2019 INFECTIOUS DISEASE CONSULTATION REQUESTING PHYSICIAN: Dalila Ramirez M.D. CONSULTING PHYSICIAN: Luis Soria M.D. HISTORY OF PRESENT ILLNESS: This is a 73-year-old woman with a history of left breast cancer with axillary metastases status post neoadjuvant chemotherapy. She just received 10 days ago. I am asked to see her because one week ago she developed an itchy rash on her lower back. She has continued to stay itchy, so I am asked to further evaluate her. She has no fevers or chills. She denies any new soaps or any new medications. She has had these symptoms for a week. Last night she used aloe cream and some hydrocortisone and remarks feeling much better. She has not noted any rash elsewhere, although she feels itchy all over. PAST MEDICAL HISTORY: Notable for peripheral neuropathy, hypertension, hyperlipidemia, GERD, colitis, breast cancer, diabetes. SURGICAL HISTORY: Notable for the breast biopsy. SOCIAL HISTORY: She is a former smoker, quit 10 years ago. No history of any substance use. She lives alone. She has no pets. ALLERGIES: She has a PENICILLIN allergy manifested by rash. MEDICATION: As an outpatient include vitamin C, glipizide, centrum, omeprazole, ramipril, saxagliptin, metformin, simvastatin, Invokana, gabapentin, Spiriva, albuterol inhaler, Symbicort, lactobacillus, p.r.n. FAMILY HISTORY: Unremarkable. REVIEW OF SYSTEMS: As per HPI. She has no fevers, chills. No cough, no sores in her mouth. PHYSICAL EXAMINATION: GENERAL: She is awake and alert, pleasant elderly woman in no acute distress. VITAL SIGNS: Afebrile. Normal vital signs. HEENT: Normocephalic. Eyes are anicteric. NECK: Supple. She has a port in place. She is receiving a magnesium infusion. LUNGS: Clear to auscultation. HEART: Regular rate and rhythm. ABDOMEN: Soft. EXTREMITIES: Without edema. SKIN: She has no rash except for 3 or 4 dried scabs, very tiny scabs on her lower back which is where she described her being very itchy. There are no signs of any vesicles or any dermatomal distribution. She has no rash elsewhere. Her skin is quite dry. LABORATORY: Her last labs from April 04: white count is 8, hemoglobin 14.9, platelets are 238. BUN and creatinine are normal. LFTs are normal. IMPRESSION: In summary, this is a 73-year-old woman I am asked to see for one week of rash and itchiness. This is a nonspecific rash that appears to be improving. Nothing to suggest zoster. She has very dry skin as well. I have agreed with skin moisturizer and cortisone cream, dermatology evaluation if the rash worsens, there is nothing to suggest zoster at this time. LUIS SORIA M.D. [id number]
== END 2019-04-01 15:45 | disposition home or self-care (01) ==
LOC: JONCNONCHE 05:26 → J7W 12:50 → JONCNONCHE 15:45
PROVIDERS: ATTEND Internal Medicine Hematology & Oncology
DX: C50.919 Malignant neoplasm of unspecified site of unspecified female breast (principal); Z76.89 Persons encountering health services in other specified circumstances
CPT/HCPCS: 96417

== ENCOUNTER 2019-04-05 18:45 | Day surgery (SDC) | payer OTHER, BC ==
--- NOTE | 2019-03-28 16:32 | HP ---
Admitting History and Physical - Primary Care Physician PCP: Fidencio Guevara - Admission Chief Complaint: Left breast cancer with axillary mets S/P neoadjuvant chemotherapy History of Present Illness: 73 year old nulliparous postmenapausal female who was adopted who underwent bilateral breast bxs 2010 which were benign. She noticed a left breast lump lower aspect and was sent for mammogram and US 10/2018 . mammogram showed two suspicious masses left breast 6 to 7:00 region measuring 1.4x1.3 cm and 1.6x1.3 cm. There was a highly suspicious left axillary lymph node 2.9x2.4 cm seen and adjacent 9x9 mm lymph node.as well as prior 1.1 cm stable retroareolar density that was bxed. US showed showed two suspicious densities left 6:00 region 2x1.3x1.8 cm 5 cm FN and 3 to 4 cm FN another density 1.4x.8x1.7 cm. The left axillary lymph node measured 2.6x1.3x3.5 cm and another node 1.7x1.3x1.5cm. . US core bxs left breast 2 and 4 cm Fn showed invasive ductal carcinoma ER/PE- and HER2+. Left axillary core biopsy was positive. She underwent neoadjuvant chemotherapy with Dr Conner and was given TCHP and had significant neuropathy and eventually finishedon Taxol Herceptin and Perjetta. She completed 2/3 of her treatment but due to colitis and neuropathy she was not able to complete it. 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 Cardiovascular: Yes: HTN, Hyperlipdemia Gastrointestinal: Yes: GERD Heme/Onc: Yes: Cancer Endocrine: Yes: Diabetes Mellitus (insulin dependent) - Past Surgical History Past Surgical History: Yes: Breast Biopsy - Smoking History Smoking history: Former smoker (1ppd x 50 yrs) Have you smoked in the past 12 months: No Aproximately how many cigarettes per day: 0 If you are a former smoker, when did you quit?: 10 years - Alcohol/Substance Use Hx Alcohol Use: No Home Medications - Allergies Allergies/Adverse Reactions: Allergies Allergy/AdvReac Type Severity Reaction Status Date / Time Penicillins Allergy Intermediate Rash Verified 11/30/18 09:58 - Home Medications Home Medications: Ambulatory Orders Ascorbate Calcium [Vitamin C] 500 mg PO DAILY 01/28/17 Glipizide 5 mg PO TID 01/28/17 Multivit-Min/FA/Lycopen/Lutein [Centrum Silver Tablet] 1 tab PO DAILY 01/28/17 Omeprazole 40 mg PO DAILY 01/28/17 Ramipril 2.5 mg PO HS 01/28/17 Saxagliptin HCl/Metformin HCl [Kombiglyze Xr 2.5-1,000 mg Tab] 1 tab PO BID Simvastatin 20 mg PO HS 01/28/17 Canagliflozin [Invokana] 300 mg PO DAILY 11/29/18 Gabapentin 600 mg PO HS 11/29/18 Tiotropium [place] [Spiriva] 1 inh PO DAILY 11/29/18 Albuterol Sulfate Inhaler - [Ventolin HFA Inhaler -] 1 puff PO PRN PRN 12/29/18 SYMBICORT 160/4.5mcg - 1 inh PO BID 12/29/18 Lactobacillus Acidophilus [Bacid -] 1 tab PO DAILY #30 tab 02/23/19 Lomotil 2.5-0.025 mg Tablet 1 tab PO QID PRN MDD 4 03/02/19 Family Disease History - Family Disease History Family History: Denies Physical Examination Constitutional: Yes: No Distress Breast(s): Yes: Other (D sized cups bilaterally on palpation where her previous left breast 6:00 masses have completely resolved as well as her left adenopathy , right breast is negative, no supraclavicular adenopathy or cervical) Problem List - Problems (1) Breast cancer, left breast Code(s): C50.912 - MALIGNANT NEOPLASM OF UNSPECIFIED SITE OF LEFT FEMALE BREAST Qualifiers: Breast location: overlapping sites of breast Estrogen receptor status: positive Patient sex: female Qualified Code(s): C50.812 - Malignant neoplasm of overlapping sites of left female breast; Z17.0 - Estrogen receptor positive status [ER+] Assessment/Plan Left breast wide excision with mammogram needle localizationx2,and axillary needle localization,lymphoscintogram, sentenl node biopsy ,possible axillary node dissection reduction mastopexy with Dr Russ.
[2019-03-29 09:20] VITALS: BMI 32.2
--- NOTE | 2019-04-05 17:34 | OP ---
Operative Note - Note: Operative Date: 04/05/19 Pre-Operative Diagnosis: left breast cancer and right breast asymmetry to reconstructed side Operation: left breast reconstruction of partial mastectomy with right breast reduction Post-Operative Diagnosis: Same as Pre-op Surgeon: Konrad Russ Gate Watchman: Nicolasa Rivera Anesthesia: General Operative Report Dictated: Yes
[~2019-04-05 18:45] MED LIST changes: +ALBUTEROL SO4 8 GM HFA INHALER IH PRN; +BUPIVACAINE HCL/PF 2.5 MG/ML - 30 ML VIAL IJ ONE; +CLINDAMYCIN PHOSPHATE 600 MG/4 ML VIAL ONE; +DEXAMETHASONE SOD PHOSPHATE 4 MG/1 ML VIAL ONE; +DEXTROSE 5%-0.45% SALINE 1,000 ML IV SCH; +DOCUSATE SODIUM 100 MG CAPSULE (FP) PO PRN; +INSULIN SLIDING SCALE (NOVOLOG) 1 VIAL SQ SCH; +ISOSULFAN BLUE 10 MG/ML VIAL SQ ONE; +KETOROLAC TROMETHAMINE 30 MG/1 ML VIAL IVPUSH PRN; +LACTATED RINGERS SOLUTION 1,000 ML IV SCH; +LIDOCAINE HCL/PF 2% SDV 5ML VIAL ONE; -MAGNESIUM SULF 50% (8.12 MEQ/2 ML-1 GM VIAL) IVPB ONE; +MIDAZOLAM HCL 2 MG/2 ML SINGLE DOSE VIAL ONE; +ONDANSETRON 4 MG/2 ML VIAL IVPUSH PRN; +ONDANSETRON 4 MG/2 ML VIAL ONE; +PROMETHAZINE HCL 25 MG/1 ML VIAL IVPB PRN; +PROPOFOL 20 ML ONE; +ROCURONIUM BROMIDE 50 MG/5 ML SYRINGE ONE; +oxyCODONE HCL 5 MG TABLET PO PRN
[2019-04-05] MEDS ORDERED: CEFAZOLIN 1 GM/D5W 50 ML IVPB SCH (21:00)
[2019-04-05] MEDS ORDERED: RAMIPRIL 2.5 MG CAPSULE (FP) PO SCH (22:00)
[2019-04-05] MEDS ORDERED: GABAPENTIN 300 MG CAPSULE (FP) PO SCH (22:00)
[2019-04-05] MEDS ORDERED: ATORVASTATIN CA 10 MG TABLET (FP) PO SCH (22:00)
[2019-04-05] MEDS ORDERED: PT OWN MED DRAWER 7, Y5N ONE (22:11)
[2019-04-05] MEDS ORDERED: oxyCODONE HCL 5 MG TABLET PO PRN ×2 (23:52→23:53)
--- NOTE | 2019-04-06 01:13 | OP ---
DATE OF OPERATION: 04/05/2019 PROCEDURE: Left breast reconstruction of partial mastectomy defect with other technique utilizing local tissues, right breast reduction mammoplasty. ATTENDING SURGEON: Konrad Russ MD TUB CHUCKER: BRYANT Villanueva ANESTHESIA: General endotracheal anesthesia. The procedure is performed in combination with a left-sided partial mastectomy and sentinel lymph node biopsy, performed by Dr. Fidencio Guevara. That portion of the procedure will be dictated separately by Dr. Guevara. DESCRIPTION OF PROCEDURE: The patient was marked in the holding area. Nipples were sited at 22.5 cm from the sternal notch bilaterally. A modified Fragoso-type pattern with a superomedial pedicle was planned bilaterally as Dr. Guevara plans for a 6 o'clock excision of the tissue. The patient received 900 mg of clindamycin IV preoperatively. Sequential compression stockings and ALIS hose were applied. She was brought to the operating room and placed in the supine position. Position was carefully checked by surgical and anesthesia teams. All pressure points were carefully padded. A Carranza catheter was placed after induction of general anesthesia, which was removed at the end of the procedure. She was prepped and draped in the standard surgical fashion. Timeout was called. Patient, procedure, side, and sites were verified. At this point, Dr. Guevara and his team began by addressing the left breast and my team and I addressed the right breast. A cookie cutter was used for a 42-mm diameter nipple areola tracing. A 7-cm width superomedial pedicle was developed. Under tourniquet, the pedicle was deepithelialized with the exception of the nipple-areolar complex. Superior, medial, and lateral skin flaps were then elevated. A reduction of tissue in the 6 o'clock position commensurate with the amount resected on the contralateral side has been made. Hemostasis was meticulously achieved. Skin was tailor tacked and with the completion of the partial mastectomy on the left side, a mirror image procedure was then performed on the patient's right side. However, in this case, there is a significant defect that was left in the 6 o'clock position. The pedicle was modified to capture the maximal blood flow from the superomedial perforating blood vessels. The defect was able to be reconstructed by medial and lateral pillars. They were able to be imbricated within the defect to reconstruct the deformity. A resection weight on the left side including the partial mastectomy specimen is 128 g. The resected tissue weight on the right side, which was slightly larger preoperatively is 155 g. The patient was tailor tacked and then placed in the seated upright position. There was excellent symmetry of size, shape, and nipple position. Hemostasis was meticulously achieved. Both sides were copiously irrigated. Size 10 BETSY drains were brought out through the lateral extent of both incisions and secured with 2-0 silk drain suture. The nipples were rotated into the keyhole pattern. They were pink, viable, and reactive as they are burned to the pattern. The closure was performed with half-buried mattress of 2-0 nylon suture at the inverted T position. The dermis was approximated with a series of buried deep dermal 3-0 Monocryl suture followed by running subcuticular 3-0 Monocryl suture. The nipple-areolar area was approximated with a series of interrupted buried deep dermal 4-0 Monocryl suture followed by a running subcuticular 4-0 Monocryl suture. Dressings were placed with Steri-Strips, 4 x 4 gauze, ABD gauze, and a surgical bra. Patient was awoken from anesthesia, having tolerated the procedure well, transferred to the recovery room without complication. It should be noted that Dr. Guevara did the closure on the left axillary sentinel lymph node area. OKNRAD RUSS M.D. [id number]
--- NOTE | 2019-04-06 01:14 | OP ---
DATE OF OPERATION: 04/05/2019 ADDENDUM The preoperative diagnosis is left breast cancer and right breast asymmetry to reconstructed left breast. Fany [id number]
--- NOTE | 2019-04-06 01:55 | OP ---
DATE OF OPERATION: 04/05/2019 PREOPERATIVE DIAGNOSIS: Left breast cancer 6 o'clock overlapping regions after neoadjuvant chemotherapy. POSTOPERATIVE DIAGNOSIS: Left breast cancer 6 o'clock overlapping regions after neoadjuvant chemotherapy. PROCEDURE: Left breast partial mastectomy with needle localization x2 with left axillary sentinel lymph node biopsies and bilateral reduction mastopexy performed by Plastic Surgery. PRIMARY SURGEON: Delia Gerber MD GAS APPLIANCE ADJUSTER: BRYANT Alexander PRIMARY SURGEON FOR BILATERAL REDUCTION MASTOPEXY: Konrad Russ MD COMPLICATIONS: None. INDICATIONS: Briefly, the patient is a 73-year-old postmenopausal nulliparous white female with [place]- descent. She has a history of a left breast retroareolar chronic density which was biopsied in 2010, showing stromal fibrosis that has been unchanged. She developed a palpable mass in the 6 o'clock region of the left breast and actually on mammogram and ultrasound in October of 2018 had 2 separate masses in the 6 to 7 o'clock region of the left breast. 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 The patient also had a suspicious left axial lymph node, which was biopsied and positive. She was seen by Dr. Reynoso and underwent neoadjuvant TCHP chemotherapy, but developed significant neuropathy and colitis and finished about 2/3 of the chemotherapy, but had a complete clinical response. Follow up MRI after chemotherapy showed a complete radiologic response as well. She was advised on undergoing a partial mastectomy and sentinel lymph node biopsy with localization of the previous positive node as well. She was seen by Plastic Surgery preoperatively for reduction mastopexy for cosmetic concerns after lumpectomy. The patient was brought in for the procedure on April 05, 2019. DESCRIPTION OF PROCEDURE: She went to [facility] where lymphoscintigraphy and needle localizations were performed of the left breast. She was then brought to the holding area at [place]. In the holding area, site verification was made and informed consent was obtained. She was marked preoperatively by the plastic surgeon. She was brought into the operating room and laid on the OR table in the supine position. Venodynes were placed on the lower extremities prior to induction. She received 900 mg of clindamycin prior to incision. She underwent general endotracheal anesthesia and did have a Carranza placed at the beginning of the case. Both breasts were sterilely prepped and draped in the usual fashion. Then 3 mL of Lymphazurin blue were injected intradermally and peritumorly around the needle localization site and massage was instituted. Timeout was performed. Incision was made around the needle localization site in the left axilla. Dissection was undertaken and the lymphatic tissue was completely removed from around the wire with the wire in the middle of the specimen. Specimen radiographs showed removal of the clip in question and this had a 10-second gamma count of 434 and was sent down to the pathologist for frozen section. Two other sentinel nodes were removed with 10-second gamma counts of 1162 and 1781, respectively. All 3 nodes were sent down for frozen section and came back negative with fibrosis. There was a 4th nonsentinel node removed, which was sent for permanent section and background counts after removal of these 3 nodes, was 57, and no other nodes were removed. Hemostasis was achieved and the axial wound was closed with interrupted 2-0 plain suture and then interrupted 3-0 deep dermal Vicryl suture and a running 4-0 subcuticular Biosyn suture. At this point, the wide excision was undertaken around the needle localization sites in the 6 o'clock region of the left breast using the plastic surgeon's premarked reduction mastopexy pattern. We removed air fair amount of skin on the 6 o'clock region of the left breast in the elliptical fashion, removing the skin with needle localizations within the specimen. The specimen was removed all of the way down to the pectoralis major muscle and was oriented with a long lateral and short superior suture. Specimen radiographs showed removal of all clips in question. Hemostasis was achieved. Separate margins were then taken on the superior, inferior, medial, lateral, and deep aspects with sutures marked in the biopsy cavity side. All margins were sent separately to Pathology as a specimen. At this point, Dr. Russ became the primary surgeon who performed bilateral reduction mastopexy to allow symmetry after this inferior pole wide excision. This will be dictated separately by Plastic Surgery. He placed a drain in each breast prior to closure. The patient tolerated the procedure well without difficulty and was extubate at the end of the case and brought to the postanesthesia care unit. The patient will be admitted for a 23-hour short stay since she got into the OR late. All sponge and needle counts were correct at the end of the case. Estimated blood loss was about 40 mL. She was hemodynamically stable throughout. DELIA GERBER M.D. [id number]
[2019-04-06] MEDS: BUDESONIDE/FORMETEROL FUMARATE 160/4.5 mcg INHALER IH SCH ×2 (02:05→10:13)
--- NOTE | 2019-04-06 06:12 | SURG ---
Surgery Screen Tacker Note Screen Tacker: Nicolasa Rivera PA-C Date of Service: 04/05/19 Diagnosis: left breast cancer, right breast asymmerty Procedure: left breast partial mastectomy with immediate reconstruction. right breast reduction I was present for the entirety of the operative procedure. For further detail, please refer to operative report.
--- NOTE | 2019-04-06 08:12 | PN ---
Progress Note (short form) - Note Progress Note: All tissues viable without collections or infections VSS AF Pain well controlled Ambulating OK for discharge once mets all criteria
--- NOTE | 2019-04-06 08:30 | PN ---
Progress Note, Physician Chief Complaint: Left breast cancer overlapping regions s/p left partial mastectomy and SLN biopsy with bilateral reduction mastopexies after neoadjuvant chemotherapy History of Present Illness: The patient was diagnosed with a Lymph node positive HER2+ left breast cancer in October 2018 and underwent neoadjuvant TCHP. She presented now for left breast partial mastectomy with [place] lymph node biopsy and bilateral mastopexies. - Current Medication List Current Medications: Active Medications Albuterol Sulfate (Ventolin Hfa Inhaler -) 2 puff IH Q4H PRN PRN Reason: SHORTNESS OF BREATH Ascorbic Acid (Vitamin C -) 500 mg PO DAILY [facility] Atorvastatin Calcium (Lipitor -) 10 mg PO HS [facility] Last Admin: 04/05/19 22:21 Dose: 10 mg Budesonide/Formoterol Fumarate (Symbicort 160/4.5mcg -) 1 puff IH BID [facility] Last Admin: 04/06/19 02:05 Dose: 1 puff Docusate Sodium (Colace -) 100 mg PO BID PRN PRN Reason: CONSTIPATION Fentanyl (Sublimaze Injection -) 50 mcg IVPUSH [id number] PRN PRN Reason: PAIN-PACU ORDER X 4 DOSES ONLY Last Admin: 04/05/19 17:40 Dose: 50 mcg Gabapentin (Neurontin -) 600 mg PO [facility] Last Admin: 04/05/19 22:21 Dose: 600 mg Dextrose/Sodium Chloride (D5-1/2ns -) 1,000 mls @ 100 mls/hr IV ASDIR [facility] Last Admin: 04/05/19 18:39 Dose: 200 mls Lactated Ringer's (Lactated Ringers Solution) 1,000 mls @ 75 mls/hr IV ASDIR [facility] Insulin Aspart (Novolog Vial Sliding Scale -) 1 vial SQ TIDAC [facility]; Protocol Last Admin: 04/06/19 06:47 Dose: Not Given Multivitamins/Minerals/Vitamin C (Tab-A-Vit -) 1 tab PO DAILY [facility] Ondansetron HCl (Zofran Injection) 4 mg IVPUSH Q6H PRN PRN Reason: NAUSEA AND/OR VOMITING Oxycodone HCl (Roxicodone -) 5 mg PO Q6H PRN PRN Reason: PAIN LEVEL 1-5 Last Admin: 04/06/19 06:45 Dose: 5 mg Oxycodone HCl (Roxicodone -) 10 mg PO Q6H PRN PRN Reason: PAIN LEVEL 6-10 Pantoprazole Sodium (Protonix -) 40 mg PO DAILY [facility] Promethazine HCl (Phenergan Injection -) 6.25 mg IVPB Q6H PRN PRN Reason: NAUSEA-FOR RESCUE AFTER 15 MIN Ramipril (Altace -) 2.5 mg PO HS [facility] Last Admin: 04/05/19 22:21 Dose: 2.5 mg Tiotropium Forbes (Spiriva Respimat) 2 puff IH DAILY [facility] - Objective Vital Signs: Vital Signs Temperature 98.3 F 04/05/19 22:36 Pulse Rate 95 H 04/05/19 22:36 Respiratory Rate 16 04/06/19 08:08 Blood Pressure 127/72 04/05/19 22:36 O2 Sat by Pulse Oximetry (%) 95 04/06/19 08:08 Constitutional: Yes: Well Nourished, No Distress Eyes: Yes: WNL HENT: Yes: Atraumatic, Normocephalic Neck: Yes: WNL Cardiovascular: Yes: Regular Rate and Rhythm Respiratory: Yes: Regular, CTA Bilaterally Gastrointestinal: Yes: Normal Bowel Sounds, Soft ...Rectal Exam: Yes: Deferred Genitourinary: Yes: WNL Breast(s): Yes: Other (Bilateral mastopexy incisions clean, dry, and intact. Drains functioning well.) Musculoskeletal: Yes: WNL Extremities: Yes: WNL Integumentary: Yes: WNL Wound/Incision: Yes: Clean/Dry, Well Approximated Neurological: Yes: Alert, Oriented ...Motor Strength: WNL Psychiatric: Yes: WNL Problem List - Problems (1) Breast cancer, left breast Assessment/Plan: The patient is doing well POD#1 admitted postoperatively from a left breast partial mastectomy with SLN biopsy and bilateral mastopexies. She is doing well with good postop pain control this AM. She is stabel for discharge and the wounds are clean, dry, and intact. Willl arrange VNS on discharge and she is to follow up in 1 week in the office. Taught BETSY drain management. Code(s): C50.912 - MALIGNANT NEOPLASM OF UNSPECIFIED SITE OF LEFT FEMALE BREAST Qualifiers: Breast location: overlapping sites of breast Estrogen receptor status: positive Patient sex: female
[2019-04-06 09:00] VITALS: BP 110/54; PULSE 90; TEMP 98.4
[2019-04-06] MEDS ORDERED: MULTIVITAMINS (DAILY MVI) TABLET (FP) PO SCH (10:00)
[2019-04-06] MEDS ORDERED: PANTOPRAZOLE 40 MG TABLET (FP) PO SCH (10:00)
[2019-04-06] MEDS ORDERED: TIOTROPIUM BROMIDE 2.5 MCG (SPIRIVA) RESPIMAT INHALER IH SCH (10:00)
[2019-04-06] MEDS ORDERED: ASCORBIC ACID 500 MG TABLET (FP) PO SCH (10:00)
[2019-04-06] MEDS ORDERED: PT OWN MED DRAWER 7, Y5N ONE (10:07)
--- NOTE | 2019-04-08 17:49 | PATH ---
Surgical Pathology Report Patient Name: JORGE ALBERTO LAWRENCE Med. Rec. #: [id number] /Age/Gender: 1945 (Age: 73) / F Account: <[id number]> Location: [facility] MED-SURG Taken: 04/05/2019 Received: 04/05/2019 Reported: 04/08/2019 Physicians: Fidencio Guevara M.D. Specimen(s) Received A: LEFT BREAST AXILLARY SENTINEL LYMPH NODE # 1 (FS) B: LEFT BREAST AXILLARY SENTINEL LYMPH NODE # 2 (FS) C: LEFT BREAST AXILLARY SENTINEL LYMPH NODE # 3 (FS) D: LEFT BREAST WIDE EXCISION E: LEFT BREAST SUPERIOR MARGIN F: LEFT BREAST INFERIOR MARGIN G: LEFT BREAST MEDIAL MARGIN H: LEFT BREAST LATERAL MARGIN I: LEFT BREAST DEEP MARGIN J: LEFT AXILLARY NON SENTINEL LYMPH NODE K: RIGHT BREAST TISSUE L: LEFT BREAST TISSUE Clinical History Left breast 6:00 multifocal cancer, status post neoadjuvant chemotherapy Intraoperative Consult Diagnosis A. Left breast axillary sentinel node #1 with a clip, frozen section: One lymph node, negative for metastatic carcinoma. Reactive changes at prior biopsy site. B. Left breast axillary sentinel lymph node #2, frozen section: One lymph node, negative for metastatic carcinoma. C. Left breast axillary sentinel lymph node #3, frozen section: One lymph node, negative for metastatic carcinoma. Ev Gan M.D., 04/05/2019 Final Diagnosis A. lymph node, left breast axillary sentinel #1, excision (FS): One lymph node, negative for metastatic carcinoma on H&E stained sections and cytokeratin (AE1/3) Immunostain (0/1). See note. Note: An area of dense fibrous scar is present, compatible with treated metastatic tumor. B. lymph node, left breast axillary sentinel #2, excision (FS): One lymph node, negative for metastatic carcinoma on H&E stained sections and cytokeratin (AE1/3) Immunostain (0/1). C. lymph node, left breast axillary sentinel #3, excision (FS): One lymph node, negative for metastatic carcinoma on H&E stained sections and cytokeratin (AE1/3) Immunostain (0/1). D. breast, left, wide excision: Residual invasive ductal carcinoma, poorly differentiated (tubule score: 3/3, nuclear grade: 3/3, mitotic SCORE: 3/3, total score: 9/9; Glen grade 3). residual carcinoma measures 2 mm in greatest dimension, MICROSCOPICALLY and is present in a background of dense hyalinizing fibrosis with histiocytic reaction, consistent with treated tumor bed tissue. CARCINOMA comprisES approximately 10% of the treated tumor bed tissue. Surgical margins are uninvolved by carcinoma; carcinoma is AT 3 MM FROM closest (medial) margin. Additional prior biopsy site SHOWING hyalinizing fibrosis with histiocytic reaction is present, with no associated residual carcinoma. see specimen E-I for final margins. Skin is present and is uninvolved by carcinoma. No lymphovascular invasion is identified. Pathologic stage (ypTNM): ypT1a ypN0. see also invasive carcinoma case Summary below. Comment: Prior left breast and left axillary lymph node biopsies ([id number]; 10/30/18) are noted. E. breast, left, superior margin, excision: Benign breast tissue. F. breast, left, inferior margin, excision: Benign breast tissue. G. breast, left, medial margin, excision: Benign breast tissue. H. breast, left, lateral margin, excision: Benign breast tissue showing few foci of hyalinizing fibrosis and histiocytic reaction, consistent with treated tumor bed tissue. I. breast, left, deep margin, excision: Benign breast tissue. J. lymph node, left axillary non-sentinel, excision: Benign fibroadipose tissue. No lymph node tissue is identified. K. Breast tissue, right, reduction: Benign breast tissue. Skin with no pathologic findings. L. Breast tissue, left, reduction: Benign breast tissue. Skin with no pathologic findings. Comments Breast Invasive Carcinoma: Surgical Pathology Case Summary (Based on AJCC TNM 8 th edition) Procedure _X_ Excision (less than total mastectomy) Specimen Laterality _X_ Left Tumor Size _X_ Greatest dimension of largest invasive focus >1 mm (millimeters): 2 mm Histologic Type _X_ Invasive carcinoma of no special type (ductal, not otherwise specified) Histologic Grade (Show Low Histologic Score) Glandular (Acinar)/Tubular Differentiation _X_ Score 3 (<10% of tumor area forming glandular/tubular structures) Nuclear Pleomorphism _X_ Score 3 Mitotic Rate _X_ Score 3 Overall Grade _X_ Grade 3 (scores of 8 or 9) Tumor Focality _X_ Single focus of invasive carcinoma Ductal Carcinoma In Situ (DCIS) _X_ No DCIS in specimen Margins Invasive Carcinoma Margins _X_ Uninvolved by invasive carcinoma Distance from closest margin (millimeters): 3 mm Closest margin: medial margin in wide excision D (final medial margin G is negative for carcinoma) Regional Lymph Nodes _X_ Uninvolved by tumor cells Number of Lymph Nodes Examined: 3 Number of [place] Nodes Examined: 3 Treatment Effect Treatment Effect in the Breast _X_ Probable or definite response to presurgical therapy in the invasive carcinoma Treatment Effect in the Lymph Nodes _X_ No lymph node metastases. Fibrous scarring, possibly related to prior lymph node metastases with pathologic complete response Lymphovascular Invasion _X_ Not identified Pathologic Stage Classification (pTNM, AJCC 8th Edition) Primary Tumor (Invasive Carcinoma) (pT) _X_ ypT1a: Tumor >1 mm but =5 mm in greatest dimension (round any measurement >1.0-1.9mm to 2 mm) Regional Lymph Nodes (pN) Category (pN) _X_ ypN0: No regional lymph node metastasis identified or ITCs only mm Biomarker Studies Results of ER and SD studies performed on this specimen (block D5) at [facility] are as follows: ER (clone [id number] mouse monoclonal antibody by [employer]): 0 % nuclear staining (negative). SD (clone16 mouse monoclonal antibody by [employer]): 0 % nuclear staining (negative). Results of Her2 (IHC) & Ki-67 studies performed on this specimen (block D5) at [place], [place] ([id number]) are as follows: Her2 IHC (EP3 from [employer], formerly known as [id number], using Fitzpatrick Polymer Refine detection kit): 3+ (positive). Ki67: ~70% (high proliferative Index). Positive and negative controls (internal if applicable) show appropriate results. Formalin fixation and cold ischemic times are within current ASCO/CAP recommendations for ER, SD and Her2 testing. Electronically Signed Elva Amezcua M.D. Gross Description A. Received fresh labeled "left breast axillary sentinel lymph node #1," is a 1.2 cm in greatest dimension griffin lymph node. The specimen is bisected and entirely submitted for frozen section. The frozen section residue is entirely submitted in 2 cassettes. B. Received fresh labeled "left breast axillary sentinel lymph node #2," is a 2.5 x 1.0 x 0.4 cm griffin lymph node. The specimen is bisected and entirely submitted for frozen section. The frozen section residue is entirely submitted in 2 cassettes. C. Received fresh labeled "left breast axillary sentinel lymph node #3," is a 0.6 cm greatest dimension griffin lymph node. The specimen is bisected and entirely submitted for frozen section. The frozen section residue is entirely submitted in one cassette. D. Received in formalin, labeled "left breast wide excision," is a 8.0 x 4.0 x 3.0 cm. griffin-yellow, irregular, portion of fibroadipose tissue with a needle localization wire present. There is a second needle localization wire separately received within the same container which appears to have detached from the specimen. There is a short suture marking the superior aspect and a long suture marking the lateral aspect, per the surgeon. The anterior surface displays a 5.2 x 3.5 cm griffin, irregular, unremarkable portion of skin. The specimen is inked as follows: Superior blue; inferior green; lateral red; medial yellow; deep black. The specimen is serially sectioned from superior to inferior. Sectioning reveals a focus of hemorrhage at the superior aspect of the specimen, 0.6 cm from the medial margin and 0.6 cm from the deep margin. There is a olsen metallic biopsy clip identified within the focus. No definitive residual mass is identified. There is an additional focus of hemorrhage 3 cm inferior to the mass, consistent with a second biopsy site. The second biopsy site is 0.5 cm from the medial margin. No definitive residual mass is identified. Data Entry Analyst sections are submitted in 11 cassettes as follows: 1-full-face section of superior biopsy site with skin, medial and deep margins; 6-7-[id number] sections of fibrous tissue surrounding superior biopsy site, each with skin, medial and deep margins; 5-full-face section of second (inferior) biopsy site with medial margin; 2-9-[id number] sections of fibrous tissue surrounding second (inferior) biopsy site, each with medial margin; 9-superior margin; 10-inferior margin; 11-lateral margin. Time to formalin fixation: 35 minutes Total formalin fixation time: Approximately 26 hours. E. Received in formalin labeled "left breast superior margin," is a 2.8 x 1.8 x 0.5 cm portion of fibroadipose tissue with a suture marking the biopsy cavity side, per the surgeon. The new margin is inked green and the specimen is serially sectioned. The specimen is entirely and sequentially submitted in 3 cassettes. F. Received in formalin labeled "left breast inferior margin," is a 2.4 x 1.3 x 0.7 cm portion of fibroadipose tissue with a suture marking the biopsy cavity side, per the surgeon. The new margin is inked green and the specimen is serially sectioned. The specimen is entirely submitted in 3 cassettes. G. Received in formalin labeled "left breast medial margin," is a 2.1 x 1.1 x 0.6 cm portion of fibroadipose tissue with a suture marking the biopsy cavity side, per the surgeon. The new margin is inked green and the specimen is serially sectioned. The specimen is entirely submitted in 3 cassettes. H. Received in formalin labeled "left breast lateral margin," is a 2.0 x 1.7 x 0.5 cm portion of fibroadipose tissue with a suture marking the biopsy cavity side, per the surgeon. The new margin is inked green and the specimen is serially sectioned. The specimen is entirely submitted in 3 cassettes. I. Received in formalin labeled "left breast deep margin," is a 1.8 x 1.5 x 0.5 cm portion of fibroadipose tissue with a suture marking the biopsy cavity side, per the surgeon. The new margin is inked green and the specimen is serially sectioned. The specimen is entirely submitted in 2 cassettes. J. Received in formalin labeled "left axillary non-sentinel lymph node," is a 1.7 x 1.2 x 0.2 cm portion of griffin-yellow adipose tissue, possibly containing a lymph node. The specimen is submitted in toto in one cassette. K. Received in formalin labeled "right breast tissue" is a 146 g, 21.0 x 7.0 x 2.5 cm portion of fibroadipose tissue which is surfaced by griffin, unremarkable skin. Sectioning reveals foci of white fibrous tissue. No lesions are identified. Data Entry Analyst sections are submitted in one cassette. L. Received in formalin labeled "left breast tissue," is a 68 g, 10.0 x 7.0 x 3.0 cm aggregate of multiple unoriented portions of fibroadipose tissue and griffin, unremarkable skin. Sectioning reveals foci of white fibrous tissue. No lesions are identified. Data Entry Analyst sections are submitted in one cassette. 04/06/2019 saudi04/06/2019
== END 2019-04-06 10:58 | disposition home or self-care (01) ==
LOC: FASUSAT 18:45 → FM/S 18:45 → FASUSAT 04-06 10:58
PROVIDERS: ATTEND Surgery Surgical Oncology
PROC: 0HBU0ZZ Excision of Left Breast, Open Approach (ICD-10-PCS; principal; 2019-04-05 14:25)
PROC: 0HRU07Z Replacement of Left Breast with Autologous Tissue Substitute, Open Approach (ICD-10-PCS; 2019-04-05 14:25)
PROC: 0HBT0ZZ Excision of Right Breast, Open Approach (ICD-10-PCS; 2019-04-05 14:25)
DX: C50.812 Malignant neoplasm of overlapping sites of left female breast (principal); N65.1 Disproportion of reconstructed breast; G62.9 Polyneuropathy, unspecified; K21.9 Gastro-esophageal reflux disease without esophagitis; I10 Essential (primary) hypertension; E11.9 Type 2 diabetes mellitus without complications; E78.5 Hyperlipidemia, unspecified; Z79.4 Long term (current) use of insulin; Z87.891 Personal history of nicotine dependence; Z17.0 Estrogen receptor positive status [ER+]; Z92.21 Personal history of antineoplastic chemotherapy
CPT/HCPCS: 19281; 19282; 78195-TC; 82962; 88305-TC; 88307-TC; 88331-TC; 88342-TC; 94760; A9541

== ENCOUNTER 2019-05-06 06:33 | Day surgery (SDC) | payer OTHER, BC ==
[2019-05-06] MEDS ORDERED: SODIUM CHLORIDE IVPB ONE (10:00)
[2019-05-06] MEDS ORDERED: ADO TRASTUZUMAB EMTANSINE IVPB ONE (10:00)
[2019-05-06 10:59] LABS: EOS % 4.6 % (0-4.5); HEMATOCRIT 40.8 % (32.4-45.2); LYMPH % 30.6 % (8-40); MCH 31.8 pg (25.7-33.7); MCHC 34.2 g/dl (32.0-36.0); MEAN CELL VOLUME 93.1 fl (80-96); MEAN PLT VOLUME 8.8 fl (7.5-11.1); MONO % 8.3 % (3.8-10.2); NEUT % 55.5 % (42.8-82.8); PLATELET COUNT 212 K/MM3 (134-434); RBC 4.39 M/mm3 (3.60-5.2); RDW 14.6 % (11.6-15.6); WHITE BLOOD COUNT 6.4 K/mm3 (4.0-10.0)
[2019-05-06 11:28] LABS: ALBUMIN 3.8 g/dl (3.4-5.0); BILIRUBIN,TOTAL 0.4 mg/dL (0.2-1); CALCIUM 9.4 mg/dL (8.5-10.1); CREATININE 0.8 mg/dL (0.55-1.3); POTASSIUM 4.1 mmol/L (3.5-5.1); TOT PROT 6.7 g/dl (6.4-8.2)
[2019-05-06] MEDS ORDERED: DEXAMETHASONE SOD PHOSPHATE 10 MG/1 ML VIAL IVPB ONE (11:40)
[2019-05-06] MEDS ORDERED: ACETAMINOPHEN 325 MG TABLET (FP) PO ONE (11:41)
[2019-05-06 14:16] VITALS: TEMP 98.2
[2019-05-06] MEDS ORDERED: PORTA CATH FLUSH 10 ML IVPUSH ONE (14:16)
[2019-05-06 14:44] VITALS: BP 126/63; PULSE 76
== END 2019-05-06 14:55 | disposition home or self-care (01) ==
LOC: JONCCHEMO 06:33 → J7W 12:09 → JONCCHEMO 14:55
PROVIDERS: ATTEND Internal Medicine Hematology & Oncology
DX: Z51.11 Encounter for antineoplastic chemotherapy (principal); C50.919 Malignant neoplasm of unspecified site of unspecified female breast
CPT/HCPCS: 36415; 80053; 83735; 85025; 96375; 96413; 96415; J1100; J9354

== ENCOUNTER 2019-05-27 05:28 | Day surgery (SDC) | payer OTHER, BC ==
[2019-05-27] MEDS ORDERED: SODIUM CHLORIDE IVPB ONE (10:00)
[2019-05-27] MEDS ORDERED: ADO TRASTUZUMAB EMTANSINE IVPB ONE (10:00)
[2019-05-27 10:52] LABS: HEMATOCRIT 40.6 % (32.4-45.2); HEMOGLOBIN 13.7 GM/dL (10.7-15.3); LYMPH % 30.9 % (8-40); MCH 30.9 pg (25.7-33.7); MCHC 33.8 g/dl (32.0-36.0); MEAN CELL VOLUME 91.4 fl (80-96); MEAN PLT VOLUME 8.5 fl (7.5-11.1); MONO % 9.2 % (3.8-10.2); NEUT % 55.9 % (42.8-82.8); PLATELET COUNT 277 K/MM3 (134-434); RBC 4.45 M/mm3 (3.60-5.2); RDW 14.1 % (11.6-15.6); WHITE BLOOD COUNT 6.4 K/mm3 (4.0-10.0)
[2019-05-27 11:18] LABS: ALBUMIN 3.8 g/dl (3.4-5.0); BILIRUBIN,TOTAL 0.4 mg/dL (0.2-1); BLOOD UREA NITROGEN 18.8 mg/dL (7-18); CALCIUM 9.3 mg/dL (8.5-10.1); CREATININE 0.7 mg/dL (0.55-1.3); MAGNESIUM 1.8 mg/dL (1.8-2.4); POTASSIUM 3.9 mmol/L (3.5-5.1); TOT PROT 7.1 g/dl (6.4-8.2)
[2019-05-27] MEDS ORDERED: MAGNESIUM SULF 50% (8.12 MEQ/2 ML-1 GM VIAL) IVPB ONE (11:39)
[2019-05-27] MEDS ORDERED: ACETAMINOPHEN 325 MG TABLET (FP) PO ONE (11:40)
[2019-05-27 15:24] VITALS: PULSE 87; TEMP 98.4
[2019-05-27] MEDS ORDERED: PORTA CATH FLUSH 10 ML IVPUSH ONE (15:24)
[2019-05-27 15:27] VITALS: BP 130/73
== END 2019-05-27 15:16 | disposition home or self-care (01) ==
LOC: JONCNONCHE 05:28 → J7W 12:11 → JONCNONCHE 15:16
PROVIDERS: ATTEND Internal Medicine Hematology & Oncology
DX: Z51.11 Encounter for antineoplastic chemotherapy (principal); C50.919 Malignant neoplasm of unspecified site of unspecified female breast
CPT/HCPCS: 36415; 80053; 83735; 85025; 96366; 96375; 96413; 96417; J9354

== ENCOUNTER 2019-06-17 06:34 | Day surgery (SDC) | payer OTHER, BC ==
[2019-06-17 10:30] LABS: BASO % 1.1 % (0-2.0); EOS % 3.2 % (0-4.5); HEMATOCRIT 41.5 % (32.4-45.2); HEMOGLOBIN 13.8 GM/dL (10.7-15.3); LYMPH % 19.6 % (8-40); MCH 30.5 pg (25.7-33.7); MCHC 33.3 g/dl (32.0-36.0); MEAN CELL VOLUME 91.6 fl (80-96); MEAN PLT VOLUME 9.1 fl (7.5-11.1); MONO % 10.1 % (3.8-10.2); PLATELET COUNT 231 K/MM3 (134-434); RBC 4.53 M/mm3 (3.60-5.2); RDW 14.4 % (11.6-15.6); WHITE BLOOD COUNT 6.5 K/mm3 (4.0-10.0)
[2019-06-17 10:59] LABS: ALBUMIN 3.8 g/dl (3.4-5.0); BILIRUBIN,TOTAL 0.4 mg/dL (0.2-1); BLOOD UREA NITROGEN 17.4 mg/dL (7-18); CALCIUM 9.6 mg/dL (8.5-10.1); CREATININE 0.8 mg/dL (0.55-1.3); TOT PROT 7.3 g/dl (6.4-8.2)
[2019-06-17] MEDS ORDERED: DIPHENHYDRAMINE 25 MG in SODIUM CHLORIDE 50 ML IVPB ONE (11:00)
[2019-06-17] MEDS ORDERED: ACETAMINOPHEN 325 MG TABLET (FP) PO ONE (11:00)
[2019-06-17] MEDS ORDERED: ADO TRASTUZUMAB EMTANSINE IVPB ONE (11:30)
[2019-06-17] MEDS ORDERED: SODIUM CHLORIDE IVPB ONE (11:30)
[2019-06-17 16:38] VITALS: BP 133/69; PULSE 87; TEMP 97.5
== END 2019-06-17 13:20 | disposition home or self-care (01) ==
LOC: JONCCHEMO 06:34 → J7W 11:22 → JONCCHEMO 13:20
PROVIDERS: ATTEND Internal Medicine Hematology & Oncology
DX: Z51.11 Encounter for antineoplastic chemotherapy (principal); C50.919 Malignant neoplasm of unspecified site of unspecified female breast
CPT/HCPCS: 36415; 80053; 85025; 96367; 96375; 96413; J9354

== ENCOUNTER 2019-07-08 06:18 | Day surgery (SDC) | payer OTHER, BC ==
[2019-07-08 10:26] LABS: BASO % 1.1 % (0-2.0); HEMATOCRIT 41.3 % (32.4-45.2); HEMOGLOBIN 13.8 GM/dL (10.7-15.3); LYMPH % 12.2 % (8-40); MCH 30.7 pg (25.7-33.7); MCHC 33.5 g/dl (32.0-36.0); MEAN CELL VOLUME 91.9 fl (80-96); MEAN PLT VOLUME 9.3 fl (7.5-11.1); MONO % 8.5 % (3.8-10.2); NEUT % 71.2 % (42.8-82.8); PLATELET COUNT 167 K/MM3 (134-434); RDW 15.2 % (11.6-15.6); WHITE BLOOD COUNT 6.3 K/mm3 (4.0-10.0)
[2019-07-08 10:52] LABS: BILIRUBIN,TOTAL 0.4 mg/dL (0.2-1); CALCIUM 9.4 mg/dL (8.5-10.1); CREATININE 0.8 mg/dL (0.55-1.3); MAGNESIUM 1.8 mg/dL (1.8-2.4); POTASSIUM 3.7 mmol/L (3.5-5.1); TOT PROT 7.5 g/dl (6.4-8.2)
[2019-07-08] MEDS ORDERED: ACETAMINOPHEN 325 MG TABLET (FP) PO ONE (11:30)
[2019-07-08] MEDS ORDERED: SODIUM CHLORIDE IVPB ONE (12:00)
[2019-07-08] MEDS ORDERED: DEXAMETHASONE INJECTION 8 MG in SODIUM CHLORIDE 50 ML IVPB ONE (12:00)
[2019-07-08] MEDS ORDERED: ADO TRASTUZUMAB EMTANSINE IVPB ONE (12:00)
[2019-07-08] MEDS ORDERED: PORTA CATH FLUSH 10 ML IVPUSH ONE ×2 (12:10→12:30)
[2019-07-08 15:31] VITALS: BP 115/67; PULSE 93
[2019-07-08 16:02] VITALS: TEMP 98
== END 2019-07-08 13:10 | disposition home or self-care (01) ==
LOC: JONCCHEMO 06:18 → J7W 10:49 → JONCCHEMO 13:10
PROVIDERS: ATTEND Internal Medicine Hematology & Oncology
DX: Z51.11 Encounter for antineoplastic chemotherapy (principal); C50.919 Malignant neoplasm of unspecified site of unspecified female breast
CPT/HCPCS: 36415; 80053; 83735; 85025; 96367; 96413; J1100; J9354

== ENCOUNTER 2019-07-29 05:44 | Day surgery (SDC) | payer OTHER, BC ==
[2019-07-29] MEDS ORDERED: ACETAMINOPHEN 325 MG TABLET (FP) PO ONE (09:30)
[2019-07-29] MEDS ORDERED: DIPHENHYDRAMINE 25 MG in SODIUM CHLORIDE 50 ML IVPB ONE (09:30)
[2019-07-29] MEDS ORDERED: ADO TRASTUZUMAB EMTANSINE IVPB ONE (10:00)
[2019-07-29] MEDS ORDERED: SODIUM CHLORIDE IVPB ONE (10:00)
[2019-07-29] MEDS ORDERED: DEXAMETHASONE SOD PHOSPHATE 20 MG/5 ML VIAL IVPB ONE (11:04)
[2019-07-29 11:37] LABS: BASO % 1.4 % (0-2.0); EOS % 4.1 % (0-4.5); HEMATOCRIT 40.3 % (32.4-45.2); HEMOGLOBIN 13.3 GM/dL (10.7-15.3); LYMPH % 15.4 % (8-40); MCH 30.5 pg (25.7-33.7); MCHC 33.2 g/dl (32.0-36.0); MEAN CELL VOLUME 92.1 fl (80-96); MEAN PLT VOLUME 9.3 fl (7.5-11.1); MONO % 11.4 % (3.8-10.2); NEUT % 67.7 % (42.8-82.8); PLATELET COUNT 155 K/MM3 (134-434); RBC 4.37 M/mm3 (3.60-5.2); RDW 16.5 % (11.6-15.6); WHITE BLOOD COUNT 5.3 K/mm3 (4.0-10.0)
[2019-07-29 12:03] LABS: ALBUMIN 3.8 g/dl (3.4-5.0); BILIRUBIN,DIRECT 0.1 mg/dL (0.0-0.2); BILIRUBIN,TOTAL 0.3 mg/dL (0.2-1); BLOOD UREA NITROGEN 13.3 mg/dL (7-18); CALCIUM 9.7 mg/dL (8.5-10.1); CREATININE 0.7 mg/dL (0.55-1.3); POTASSIUM 4.1 mmol/L (3.5-5.1); TOT PROT 7.5 g/dl (6.4-8.2)
[2019-07-29] MEDS ORDERED: DEXAMETHASONE SOD PHOSPHATE 10 MG/1 ML VIAL ONE (12:55)
[2019-07-29 16:14] VITALS: TEMP 97.8
[2019-07-29 16:15] VITALS: BP 121/67; PULSE 82
== END 2019-07-29 14:00 | disposition home or self-care (01) ==
LOC: JONCCHEMO 05:44 → J7W 10:50 → JONCCHEMO 14:00
PROVIDERS: ATTEND Internal Medicine Hematology & Oncology
DX: Z51.11 Encounter for antineoplastic chemotherapy (principal); C50.919 Malignant neoplasm of unspecified site of unspecified female breast
CPT/HCPCS: 36415; 80048; 80076; 83735; 85025; 96375; 96413; J1100; J9354

== ENCOUNTER 2019-08-19 07:06 | Day surgery (SDC) | payer OTHER, BC ==
[2019-08-19] MEDS ORDERED: ACETAMINOPHEN 325 MG TABLET (FP) PO ONE (10:00)
[2019-08-19] MEDS ORDERED: DIPHENHYDRAMINE 25 MG in SODIUM CHLORIDE 50 ML IVPB ONE (10:00)
[2019-08-19] MEDS ORDERED: SODIUM CHLORIDE IVPB ONE (10:30)
[2019-08-19] MEDS ORDERED: ADO TRASTUZUMAB EMTANSINE IVPB ONE (10:30)
[2019-08-19 10:42] LABS: BASO % 2.3 % (0-2.0); EOS % 9.2 % (0-4.5); HEMATOCRIT 40.2 % (32.4-45.2); HEMOGLOBIN 13.5 GM/dL (10.7-15.3); MCH 30.7 pg (25.7-33.7); MCHC 33.6 g/dl (32.0-36.0); MEAN CELL VOLUME 91.4 fl (80-96); MEAN PLT VOLUME 8.9 fl (7.5-11.1); MONO % 9.5 % (3.8-10.2); PLATELET COUNT 163 K/MM3 (134-434); RDW 16.9 % (11.6-15.6); WHITE BLOOD COUNT 5.4 K/mm3 (4.0-10.0)
[2019-08-19 11:19] LABS: ALBUMIN 3.9 g/dl (3.4-5.0); BILIRUBIN,TOTAL 0.3 mg/dL (0.2-1); BLOOD UREA NITROGEN 15.6 mg/dL (7-18); CALCIUM 9.3 mg/dL (8.5-10.1); CREATININE 0.7 mg/dL (0.55-1.3); MAGNESIUM 1.8 mg/dL (1.8-2.4); POTASSIUM 3.7 mmol/L (3.5-5.1); TOT PROT 7.6 g/dl (6.4-8.2)
[2019-08-19 17:46] VITALS: BP 122/76; PULSE 98; TEMP 97.2
== END 2019-08-19 13:45 | disposition home or self-care (01) ==
LOC: JONCCHEMO 07:06 → J7W 10:05 → JONCCHEMO 13:45
PROVIDERS: ATTEND Internal Medicine Hematology & Oncology
DX: Z51.11 Encounter for antineoplastic chemotherapy (principal); C50.919 Malignant neoplasm of unspecified site of unspecified female breast
CPT/HCPCS: 36415; 80053; 83735; 85025; 96375; 96413; J9354

== ENCOUNTER 2019-09-09 05:34 | Day surgery (SDC) | payer OTHER, BC ==
[2019-09-09] MEDS ORDERED: DIPHENHYDRAMINE 25 MG in SODIUM CHLORIDE 50 ML IVPB ONE (10:00)
[2019-09-09] MEDS ORDERED: ACETAMINOPHEN 325 MG TABLET (FP) PO ONE (10:00)
[2019-09-09 10:22] LABS: BASO % 1.1 % (0-2.0); EOS % 5.8 % (0-4.5); HEMATOCRIT 39.3 % (32.4-45.2); HEMOGLOBIN 13.1 GM/dL (10.7-15.3); LYMPH % 22.8 % (8-40); MCH 30.3 pg (25.7-33.7); MCHC 33.3 g/dl (32.0-36.0); MEAN PLT VOLUME 9.1 fl (7.5-11.1); MONO % 9.9 % (3.8-10.2); NEUT % 60.4 % (42.8-82.8); PLATELET COUNT 149 K/MM3 (134-434); RBC 4.31 M/mm3 (3.60-5.2); RDW 16.8 % (11.6-15.6); WHITE BLOOD COUNT 5.7 K/mm3 (4.0-10.0)
[2019-09-09] MEDS ORDERED: ADO TRASTUZUMAB EMTANSINE IVPB ONE (10:30)
[2019-09-09] MEDS ORDERED: SODIUM CHLORIDE IVPB ONE (10:30)
[2019-09-09 10:57] LABS: ALBUMIN 3.8 g/dl (3.4-5.0); BILIRUBIN,TOTAL 0.4 mg/dL (0.2-1); BLOOD UREA NITROGEN 16.5 mg/dL (7-18); CALCIUM 9.2 mg/dL (8.5-10.1); CREATININE 0.7 mg/dL (0.55-1.3); POTASSIUM 3.7 mmol/L (3.5-5.1); TOT PROT 7.5 g/dl (6.4-8.2)
[2019-09-09 13:43] VITALS: TEMP 97.5
[2019-09-09 13:49] VITALS: BP 130/77; PULSE 86
[2019-09-09] MEDS ORDERED: PORTA CATH FLUSH 10 ML IVPUSH ONE (13:49)
== END 2019-09-09 12:30 | disposition home or self-care (01) ==
LOC: JONCCHEMO 05:34 → J7W 10:56 → JONCCHEMO 12:30
PROVIDERS: ATTEND Internal Medicine Hematology & Oncology
DX: Z51.11 Encounter for antineoplastic chemotherapy (principal); C50.919 Malignant neoplasm of unspecified site of unspecified female breast; C77.3 Secondary and unspecified malignant neoplasm of axilla and upper limb lymph nodes
CPT/HCPCS: 36415; 80053; 83735; 85025; 96413; J9354

== ENCOUNTER 2019-09-30 07:07 | Day surgery (SDC) | payer OTHER, BC ==
[2019-09-30] MEDS ORDERED: ACETAMINOPHEN 325 MG TABLET (FP) PO ONE (09:30)
[2019-09-30] MEDS ORDERED: DIPHENHYDRAMINE 25 MG in SODIUM CHLORIDE 50 ML IVPB ONE (09:30)
[2019-09-30] MEDS ORDERED: ADO TRASTUZUMAB EMTANSINE IVPB ONE (10:00)
[2019-09-30] MEDS ORDERED: SODIUM CHLORIDE IVPB ONE (10:00)
[2019-09-30 10:49] LABS: BASO % 1.2 % (0-2.0); HEMATOCRIT 40.2 % (32.4-45.2); HEMOGLOBIN 13.5 GM/dL (10.7-15.3); MCH 29.9 pg (25.7-33.7); MCHC 33.6 g/dl (32.0-36.0); MEAN CELL VOLUME 89.2 fl (80-96); MEAN PLT VOLUME 8.9 fl (7.5-11.1); MONO % 8.3 % (3.8-10.2); NEUT % 63.5 % (42.8-82.8); PLATELET COUNT 114 K/MM3 (134-434); RBC 4.51 M/mm3 (3.60-5.2); WHITE BLOOD COUNT 6.6 K/mm3 (4.0-10.0)
[2019-09-30 11:24] LABS: ALBUMIN 3.8 g/dl (3.4-5.0); BILIRUBIN,TOTAL 0.4 mg/dL (0.2-1); BLOOD UREA NITROGEN 14.5 mg/dL (7-18); CALCIUM 9.7 mg/dL (8.5-10.1); CREATININE 0.8 mg/dL (0.55-1.3); POTASSIUM 3.9 mmol/L (3.5-5.1); TOT PROT 7.8 g/dl (6.4-8.2)
[2019-09-30 14:36] VITALS: TEMP 98
[2019-09-30 14:42] VITALS: BP 122/66; PULSE 75
== END 2019-09-30 14:05 | disposition home or self-care (01) ==
LOC: JONCCHEMO 07:07 → J7W 11:44 → JONCCHEMO 14:05
PROVIDERS: ATTEND Internal Medicine Hematology & Oncology
DX: Z51.11 Encounter for antineoplastic chemotherapy (principal); C50.919 Malignant neoplasm of unspecified site of unspecified female breast; C77.3 Secondary and unspecified malignant neoplasm of axilla and upper limb lymph nodes; E11.9 Type 2 diabetes mellitus without complications
CPT/HCPCS: 36415; 80053; 85025; 96413; J9354

== ENCOUNTER 2019-10-21 07:00 | Day surgery (SDC) | payer OTHER, BC ==
[2019-10-21] MEDS ORDERED: SODIUM CHLORIDE IVPB ONE ×2 (10:00→10:30)
[2019-10-21] MEDS ORDERED: DIPHENHYDRAMINE IVPB ONE (10:00)
[2019-10-21] MEDS ORDERED: ACETAMINOPHEN 325 MG TABLET (FP) PO ONE (10:00)
[2019-10-21] MEDS ORDERED: ADO TRASTUZUMAB EMTANSINE IVPB ONE (10:30)
[2019-10-21 10:44] LABS: BASO % 1.1 % (0-2.0); EOS % 6.6 % (0-4.5); HEMATOCRIT 38.8 % (32.4-45.2); HEMOGLOBIN 13.1 GM/dL (10.7-15.3); LYMPH % 23.8 % (8-40); MCH 30.2 pg (25.7-33.7); MCHC 33.8 g/dl (32.0-36.0); MEAN CELL VOLUME 89.2 fl (80-96); MEAN PLT VOLUME 8.8 fl (7.5-11.1); NEUT % 58.5 % (42.8-82.8); PLATELET COUNT 121 K/MM3 (134-434); RBC 4.35 M/mm3 (3.60-5.2)
[2019-10-21 11:30] LABS: ALBUMIN 3.8 g/dl (3.4-5.0); BILIRUBIN,TOTAL 0.4 mg/dL (0.2-1); BLOOD UREA NITROGEN 13.5 mg/dL (7-18); CALCIUM 9.5 mg/dL (8.5-10.1); CREATININE 0.7 mg/dL (0.55-1.3); MAGNESIUM 1.9 mg/dL (1.8-2.4); POTASSIUM 3.6 mmol/L (3.5-5.1); TOT PROT 7.6 g/dl (6.4-8.2)
[2019-10-21 14:55] VITALS: TEMP 98.2
[2019-10-21 14:56] VITALS: BP 131/81; PULSE 97
== END 2019-10-21 14:10 | disposition home or self-care (01) ==
LOC: JONCCHEMO 07:00 → J7W 12:11 → JONCCHEMO 14:10
PROVIDERS: ATTEND Internal Medicine Hematology & Oncology
DX: Z51.11 Encounter for antineoplastic chemotherapy (principal); C50.919 Malignant neoplasm of unspecified site of unspecified female breast; C77.3 Secondary and unspecified malignant neoplasm of axilla and upper limb lymph nodes; E11.9 Type 2 diabetes mellitus without complications
CPT/HCPCS: 36415; 80053; 83735; 85025; 96413; J9354

== ENCOUNTER 2019-11-11 05:48 | Day surgery (SDC) | payer OTHER, BC ==
[2019-11-11 11:26] LABS: BASO % 0.8 % (0-2.0); HEMATOCRIT 41.9 % (32.4-45.2); HEMOGLOBIN 13.9 GM/dL (10.7-15.3); LYMPH % 26.6 % (8-40); MCH 29.7 pg (25.7-33.7); MCHC 33.1 g/dl (32.0-36.0); MEAN CELL VOLUME 89.7 fl (80-96); MEAN PLT VOLUME 9.4 fl (7.5-11.1); MONO % 7.7 % (3.8-10.2); NEUT % 59.9 % (42.8-82.8); PLATELET COUNT 102 K/MM3 (134-434); RBC 4.67 M/mm3 (3.60-5.2); RDW 16.9 % (11.6-15.6); WHITE BLOOD COUNT 5.9 K/mm3 (4.0-10.0)
[2019-11-11 11:57] LABS: ALBUMIN 3.9 g/dl (3.4-5.0); BILIRUBIN,TOTAL 0.6 mg/dL (0.2-1); BLOOD UREA NITROGEN 10.7 mg/dL (7-18); CALCIUM 9.1 mg/dL (8.5-10.1); CREATININE 0.6 mg/dL (0.55-1.3); MAGNESIUM 1.9 mg/dL (1.8-2.4); POTASSIUM 3.6 mmol/L (3.5-5.1); TOT PROT 7.9 g/dl (6.4-8.2)
[2019-11-11] MEDS ORDERED: ACETAMINOPHEN 325 MG TABLET (FP) PO ONE (12:30)
[2019-11-11] MEDS ORDERED: SODIUM CHLORIDE IVPB ONE (13:00)
[2019-11-11] MEDS ORDERED: ADO TRASTUZUMAB EMTANSINE IVPB ONE (13:00)
[2019-11-11 18:48] VITALS: BP 110/80; PULSE 88; TEMP 98.2
[2019-11-11] MEDS ORDERED: PORTA CATH FLUSH 10 ML IVPUSH ONE (18:48)
== END 2019-11-11 14:05 | disposition home or self-care (01) ==
LOC: JONCCHEMO 05:48 → J7W 12:51 → JONCCHEMO 14:05
PROVIDERS: ATTEND Internal Medicine Hematology & Oncology
DX: Z51.11 Encounter for antineoplastic chemotherapy (principal); C50.919 Malignant neoplasm of unspecified site of unspecified female breast; C77.3 Secondary and unspecified malignant neoplasm of axilla and upper limb lymph nodes; E11.9 Type 2 diabetes mellitus without complications
CPT/HCPCS: 36415; 80053; 83735; 85025; 96413; J9354

== ENCOUNTER → 2020-05-01 | Day surgery (SDC) | payer OTHER, BC ==
[2020-05-01 10:44] LABS: BASO % 0.7 % (0-2.0); EOS % 2.8 % (0-4.5); HEMATOCRIT 39.4 % (32.4-45.2); HEMOGLOBIN 13.2 GM/dL (10.7-15.3); LYMPH % 25.3 % (8-40); MCH 30.6 pg (25.7-33.7); MCHC 33.5 g/dl (32.0-36.0); MEAN CELL VOLUME 91.4 fl (80-96); MONO % 6.4 % (3.8-10.2); NEUT % 64.8 % (42.8-82.8); PLATELET COUNT 93 K/MM3 (134-434); RBC 4.31 M/mm3 (3.60-5.2); RDW 16.9 % (11.6-15.6); WHITE BLOOD COUNT 5.7 K/mm3 (4.0-10.0)
[2020-05-01 10:48] LABS: INR 1.09 (0.83-1.09); PROTHROMBIN TIME (PATIENT) 12.9 SEC (9.7-13.0)
== END | disposition home or self-care (01) ==
LOC: JRADIR 09:51
PROVIDERS: ATTEND Internal Medicine Hematology & Oncology
PROC: 0JPT0WZ Removal of Totally Implantable Vascular Access Device from Trunk Subcutaneous Tissue and Fascia, Open Approach (ICD-10-PCS; principal; 2020-05-01)
DX: Z45.2 Encounter for adjustment and management of vascular access device (principal)
CPT/HCPCS: 36415; 36590; 77001-TC-FY; 85025; 85610

== ENCOUNTER 2021-02-15 07:23 | Day surgery (SDC) | payer OTHER, BC ==
[2021-02-15] MEDS ORDERED: ZOLEDRONIC ACID 4 MG in SODIUM CHLORIDE 100 ML IVPB ONE (10:00)
[2021-02-15 16:01] LABS: CALCIUM 9.3 mg/dL (8.5-10.1)
[2021-02-15 16:02] LABS: BLOOD UREA NITROGEN 15.8 mg/dL (7-18)
[2021-02-15 16:05] LABS: CREATININE 0.6 mg/dL (0.55-1.3)
[2021-02-15 16:06] VITALS: TEMP 98
[2021-02-15 17:24] VITALS: BP 128/77; PULSE 78
== END 2021-02-15 17:20 | disposition home or self-care (01) ==
LOC: JONCCHEMO 07:23
PROVIDERS: ATTEND Internal Medicine Hematology & Oncology
PROC: 3E033GC Introduction of Other Therapeutic Substance into Peripheral Vein, Percutaneous Approach (ICD-10-PCS; principal; 2021-02-15)
DX: C50.919 Malignant neoplasm of unspecified site of unspecified female breast (principal); C77.3 Secondary and unspecified malignant neoplasm of axilla and upper limb lymph nodes; E11.9 Type 2 diabetes mellitus without complications; I10 Essential (primary) hypertension
CPT/HCPCS: 36415; 80048; 96365; J3489

== ENCOUNTER → 2021-07-23 | Day surgery (SDC) | payer OTHER, BC | END | disposition home or self-care (01) | LOC: JRADIR 10:37 | PROVIDERS: ATTEND Internal Medicine Endocrinology, Diabetes & Metabolism | PROC: 0G9K3ZX Drainage of Thyroid Gland, Percutaneous Approach, Diagnostic (ICD-10-PCS; principal; 2021-07-23) | DX: E04.1 Nontoxic single thyroid nodule (principal) | CPT/HCPCS: 10005; 76942; 88173; 88305-TC ==

== ENCOUNTER 2021-11-01 07:03 | Day surgery (SDC) | payer OTHER, BC ==
[2021-11-01] MEDS ORDERED: SODIUM CHLORIDE 1,000 ML IV ONE (08:30)
[2021-11-01] MEDS ORDERED: ZOLEDRONIC ACID 4 MG in SODIUM CHLORIDE 100 ML IVPB ONE (10:00)
[2021-11-01 13:51] LABS: BASO % 0.8 % (0-2.0); EOS % 2.9 % (0-4.5); HEMATOCRIT 43.1 % (32.4-45.2); HEMOGLOBIN 14.8 GM/dL (10.7-15.3); MCH 32.1 pg (25.7-33.7); MCHC 34.2 g/dl (32.0-36.0); MEAN CELL VOLUME 93.7 fl (80-96); MEAN PLT VOLUME 8.8 fl (7.5-11.1); MONO % 6.9 % (3.8-10.2); NEUT % 61.4 % (42.8-82.8); PLATELET COUNT 152 10^3/uL (134-434); RBC 4.61 M/mm3 (3.60-5.2); RDW 13.8 % (11.6-15.6); WHITE BLOOD COUNT 6.2 K/mm3 (4.0-10.0)
[2021-11-01 14:10] LABS: CALCIUM 9.8 mg/dL (8.5-10.1)
[2021-11-01 14:11] LABS: ALBUMIN 4.4 g/dl (3.4-5.0); BLOOD UREA NITROGEN 17.1 mg/dL (7-18)
[2021-11-01 14:15] LABS: BILIRUBIN,TOTAL 0.4 mg/dL (0.2-1); CREATININE 0.8 mg/dL (0.55-1.3); TOT PROT 7.7 g/dl (6.4-8.2)
[2021-11-01 16:22] VITALS: BP 161/89; PULSE 92; TEMP 97.7
== END 2021-11-01 16:20 | disposition home or self-care (01) ==
LOC: JONCCHEMO 07:03
PROVIDERS: ATTEND Internal Medicine Hematology & Oncology
PROC: 3E033GC Introduction of Other Therapeutic Substance into Peripheral Vein, Percutaneous Approach (ICD-10-PCS; principal; 2021-11-01)
DX: C50.919 Malignant neoplasm of unspecified site of unspecified female breast (principal); C77.3 Secondary and unspecified malignant neoplasm of axilla and upper limb lymph nodes; M81.0 Age-related osteoporosis without current pathological fracture; Z76.89 Persons encountering health services in other specified circumstances
CPT/HCPCS: 36415; 80053; 85025; 96365; J3489

== ENCOUNTER 2022-05-07 13:29 | Day surgery (SDC) | payer OTHER, BC ==
[~2022-05-07 13:29] MED LIST changes: -ALBUTEROL SO4 8 GM HFA INHALER IH PRN; -BUPIVACAINE HCL/PF 2.5 MG/ML - 30 ML VIAL IJ ONE; -CLINDAMYCIN PHOSPHATE 600 MG/4 ML VIAL ONE; -DEXAMETHASONE SOD PHOSPHATE 4 MG/1 ML VIAL ONE; -DEXTROSE 5%-0.45% SALINE 1,000 ML IV SCH; -DOCUSATE SODIUM 100 MG CAPSULE (FP) PO PRN; -INSULIN SLIDING SCALE (NOVOLOG) 1 VIAL SQ SCH; -ISOSULFAN BLUE 10 MG/ML VIAL SQ ONE; -KETOROLAC TROMETHAMINE 30 MG/1 ML VIAL IVPUSH PRN; -LACTATED RINGERS SOLUTION 1,000 ML IV SCH; -LIDOCAINE HCL/PF 2% SDV 5ML VIAL ONE; -MIDAZOLAM HCL 2 MG/2 ML SINGLE DOSE VIAL ONE; -ONDANSETRON 4 MG/2 ML VIAL IVPUSH PRN; -ONDANSETRON 4 MG/2 ML VIAL ONE; -PROMETHAZINE HCL 25 MG/1 ML VIAL IVPB PRN; -PROPOFOL 20 ML ONE; -ROCURONIUM BROMIDE 50 MG/5 ML SYRINGE ONE; +ZOLEDRONIC ACID 4 MG in SODIUM CHLORIDE 100 ML IVPB ONE; -oxyCODONE HCL 5 MG TABLET PO PRN
[2022-05-07 14:48] LABS: BASO % 0.8 % (0-2.0); HEMATOCRIT 42.8 % (32.4-45.2); HEMOGLOBIN 14.4 GM/dL (10.7-15.3); LYMPH % 19.3 % (8-40); MCH 31.5 pg (25.7-33.7); MCHC 33.6 g/dl (32.0-36.0); MEAN CELL VOLUME 93.8 fl (80-96); MEAN PLT VOLUME 8.9 fl (7.5-11.1); MONO % 8.7 % (3.8-10.2); NEUT % 68.2 % (42.8-82.8); PLATELET COUNT 161 10^3/uL (134-434); RBC 4.56 M/mm3 (3.60-5.2); RDW 13.9 % (11.6-15.6)
[2022-05-07 15:06] LABS: CALCIUM 9.8 mg/dL (8.5-10.1)
[2022-05-07 15:07] LABS: ALBUMIN 4.2 g/dl (3.4-5.0); BLOOD UREA NITROGEN 19.6 mg/dL (7-18); MAGNESIUM 2.2 mg/dL (1.8-2.4)
[2022-05-07 15:09] LABS: BILIRUBIN,DIRECT 0.2 mg/dL (0.0-0.2)
[2022-05-07 15:10] LABS: CREATININE 0.8 mg/dL (0.55-1.3)
[2022-05-07 15:11] LABS: BILIRUBIN,TOTAL 0.5 mg/dL (0.2-1); TOT PROT 7.4 g/dl (6.4-8.2)
[2022-05-07 17:12] VITALS: BP 131/74; PULSE 77; RESP 18; TEMP 98.6
== END 2022-05-07 17:00 | disposition home or self-care (01) ==
LOC: JONCCHEMO 13:29
PROVIDERS: ATTEND Internal Medicine Hematology & Oncology
PROC: 3E033GC Introduction of Other Therapeutic Substance into Peripheral Vein, Percutaneous Approach (ICD-10-PCS; principal; 2022-05-07)
DX: C50.919 Malignant neoplasm of unspecified site of unspecified female breast (principal); C77.3 Secondary and unspecified malignant neoplasm of axilla and upper limb lymph nodes; Z76.89 Persons encountering health services in other specified circumstances
CPT/HCPCS: 36415; 80048; 80076; 82378; 83735; 85025; 86300; 96365; J3489

== ENCOUNTER 2022-09-17 04:38 | Day surgery (SDC) | payer OTHER, BC ==
[2022-09-16 12:28] VITALS: BMI 34.9
[2022-09-17 10:14] VITALS: TEMP 97
[2022-09-17 12:19] VITALS: BP 107/49; PULSE 86; RESP 18
== END 2022-09-17 10:50 | disposition home or self-care (01) ==
LOC: JASU-ENDO 04:38
PROVIDERS: ATTEND Internal Medicine Gastroenterology
PROC: 0DBN8ZX Excision of Sigmoid Colon, Via Natural or Artificial Opening Endoscopic, Diagnostic (ICD-10-PCS; principal; 2022-09-17 09:00)
DX: Z12.11 Encounter for screening for malignant neoplasm of colon (principal); D12.5 Benign neoplasm of sigmoid colon; K55.20 Angiodysplasia of colon without hemorrhage; K63.89 Other specified diseases of intestine
CPT/HCPCS: 88305-TC

== ENCOUNTER 2024-04-23 19:40 | Emergency (ER) | payer OTHER, BC ==
[2024-04-23 19:47] VITALS: TEMP 98.1; BMI 33.6
[2024-04-23] MEDS ORDERED: LIDOCAINE 4% PATCH TP ONE (20:34)
[2024-04-23] MEDS ORDERED: KETOROLAC TROMETHAMINE 15 MG/ML VIAL ONE ×2 (20:34→20:40)
[2024-04-23] MEDS ORDERED: DEXAMETHASONE SOD PHOSPHATE 10 MG/1 ML VIAL ONE (20:40)
[2024-04-23 20:44] LABS: PH,URINE 5.5 (5.0-8.0); URINE APPEARANCE CLEAR; URINE BILIRUBIN NEGATIVE (NEGATIVE); URINE COLOR YELLOW; URINE GLUCOSE (UA) 3+ (NEGATIVE); URINE KETONE TRACE (NEGATIVE); URINE LEUK ESTERASE NEGATIVE (NEGATIVE); URINE NITRITE NEGATIVE (NEGATIVE); URINE PROTEIN NEGATIVE (NEGATIVE); URINE UROBILINOGEN 0.2 mg/dL (0.2-1.0)
[2024-04-23] MEDS: LIDOCAINE 5% TOPICAL PATCH TP ONE (20:51)
[2024-04-23] MEDS: DEXAMETHASONE SOD PHOSPHATE 10 MG/1 ML VIAL IM ONE (20:52)
[2024-04-23] MEDS: KETOROLAC TROMETHAMINE 30 MG/1 ML VIAL IM ONE (21:00)
[2024-04-23] MEDS: KETOROLAC TROMETHAMINE 15 MG/ML VIAL IM ONE (21:00)
[2024-04-23 22:28] VITALS: BP 156/82; PULSE 87; RESP 18
[2024-04-24] MEDS ORDERED: LIDOCAINE PATCH REMOVAL MC SCH (08:00)
== END 2024-04-23 22:49 | disposition home or self-care (01) ==
LOC: JER 19:40
PROC: 3E023GC Introduction of Other Therapeutic Substance into Muscle, Percutaneous Approach (ICD-10-PCS; principal; 2024-04-23)
PROC: 3E0133Z Introduction of Anti-inflammatory into Subcutaneous Tissue, Percutaneous Approach (ICD-10-PCS; 2024-04-23)
DX: M54.42 Lumbago with sciatica, left side (principal)
CPT/HCPCS: 72100-TC-FY; 73502-TC-LT-FY; 81003; 87086; 99284-25; J1100

== ENCOUNTER 2024-05-12 04:54 | Day surgery (SDC) | payer OTHER, BC ==
[2024-05-12] MEDS ORDERED: LIDOCAINE HCL/PF 1% SDV 5ML VIAL ONE (07:51)
[2024-05-12] MEDS ORDERED: DEXAMETHASONE SOD PHOSPHATE 10 MG/1 ML VIAL ONE ×2 (07:51→13:24)
[2024-05-12 12:57] VITALS: BMI 33.6
[2024-05-12] MEDS: LIDOCAINE HCL 1% PRESERVATIVE FREE - 30ML VIAL IJ ONE (13:29)
[2024-05-12] MEDS: IOHEXOL 180 MG/1 ML ML IJ ONE (13:29)
[2024-05-12] MEDS: DEXAMETHASONE SOD PHOSPHATE 10 MG/1 ML VIAL IVPUSH ONE (13:30)
[2024-05-12 14:51] VITALS: RESP 18
[2024-05-12 14:54] VITALS: BP 124/82; PULSE 88; TEMP 97.8
== END 2024-05-12 14:30 | disposition home or self-care (01) ==
LOC: JASU-SURG 04:54
PROVIDERS: ATTEND Pain Medicine Pain Medicine
PROC: 3E0R3BZ Introduction of Anesthetic Agent into Spinal Canal, Percutaneous Approach (ICD-10-PCS; 2024-05-12)
PROC: 3E0R33Z Introduction of Anti-inflammatory into Spinal Canal, Percutaneous Approach (ICD-10-PCS; principal; 2024-05-12 13:45)
DX: M54.16 Radiculopathy, lumbar region (principal)
CPT/HCPCS: 76000-TC-FY; J1100

== ENCOUNTER 2024-06-02 09:18 | Day surgery (SDC) | payer OTHER, BC ==
[2024-06-02] MEDS ORDERED: ACETAMINOPHEN 500 MG TABLET (FP) PO PRN (10:25)
[2024-06-02 11:37] VITALS: BP 117/73; PULSE 89; RESP 16; TEMP 97.5
[2024-06-02 12:09] VITALS: BMI 33.6
[2024-06-02] MEDS ORDERED: DEXAMETHASONE SOD PHOSPHATE 10 MG/1 ML VIAL ONE (13:06)
[2024-06-02] MEDS: LIDOCAINE HCL 1% PRESERVATIVE FREE - 30ML VIAL IJ ONE (13:19)
[2024-06-02] MEDS: IOHEXOL 180 MG/1 ML ML IJ ONE ×2 (13:24)
[2024-06-02] MEDS: DEXAMETHASONE SOD PHOSPHATE 10 MG/1 ML VIAL IM ONE ×2 (13:26)
== END 2024-06-02 13:50 | disposition home or self-care (01) ==
LOC: JASU-SURG 09:18
PROVIDERS: ATTEND Pain Medicine Pain Medicine
PROC: 3E0R33Z Introduction of Anti-inflammatory into Spinal Canal, Percutaneous Approach (ICD-10-PCS; principal; 2024-06-02 12:45)
DX: M54.16 Radiculopathy, lumbar region (principal)
CPT/HCPCS: 76000-TC-FY; J1100

== ENCOUNTER → 2024-08-03 | Day surgery (SDC) | payer OTHER, BC | END | disposition home or self-care (01) | LOC: JRADIR 10:20 | PROVIDERS: ATTEND Internal Medicine Endocrinology, Diabetes & Metabolism | PROC: 0G9G3ZX Drainage of Left Thyroid Gland Lobe, Percutaneous Approach, Diagnostic (ICD-10-PCS; principal; 2024-08-03) | DX: E04.1 Nontoxic single thyroid nodule (principal) | CPT/HCPCS: 10005; 76942; 88173; 88305-TC ==